=== PATIENT | female | born 1960 | race Caucasian/White ===

== ENCOUNTER 2020-09-12 08:58 | Outpatient (REF) | payer OTHER, SELFPAY ==
[2020-09-12 11:02] LABS: MANUAL DIFF FLAG NO
[2020-09-12 11:10] LABS: Basophils Percent Auto 0.7 % (0-2); Eosinophils Absolute Auto 0.2 X10*3/uL (0.0-0.4); Eosinophils Percent Auto 2.9 % (0-4); Hematocrit 45.7 % (37-47); Hemoglobin 14.4 g/dl (12.0-16.0); Imm Gran Abs Auto 0.03 X10*3/uL (0.00-0.03); Imm Gran Pct Auto 0.5 % (0.0-0.4); Lymphocytes Absolute Auto 1.1 X10*3/uL (1.2-4.9); Lymphocytes Percent Auto 17.9 % (20-40); Mean Corpuscular HGB Conc 31.5 g/dl (31.0-35.0); Mean Corpuscular Hemoglobin 29.3 pg (27.0-33.0); Mean Corpuscular Volume 93.1 fL (80-98); Mean Platelet Volume 9.9 fL (9.4-12.3); Monocytes Absolute Auto 0.5 X10*3/uL (0.1-1.2); Monocytes Percent Auto 9.1 % (2-11); Neutrophils Absolute Auto 4.1 X10*3/uL (2.0-8.3); Neutrophils Percent Auto 68.9 % (45-73); Platelet Count 387 X10*3/uL (160-400); Red Blood Count 4.91 X10*6/uL (4.20-5.50); Red Cell Distribution Width 12.9 % (11.0-16.0); White Blood Count 5.9 X10*3/uL (4.8-10.8)
[2020-09-12 11:30] LABS: Alanine Aminotransferase 13 U/L (0-31); Albumin Level 4.3 g/dL (3.5-5.0); Alkaline Phosphatase 86 U/L (39-117); Anion Gap 13 (12-20); Aspartate Amino Transferase 15 U/L (5-31); Bilirubin Total 0.5 mg/dL (0.0-1.0); Blood Urea Nitrogen 25 mg/dL (9-16); Calcium 8.7 mg/dL (8.4-10.2); Carbon Dioxide 26 mmol/L (22-29); Chloride 109 mmol/L (96-108); Estimated Glomerular Filt Rate > 60; Glucose Fasting 79 mg/dL (60-99); Potassium 4.2 mmol/l (3.3-5.1); Sodium 144 mmol/L (135-145); Total Protein 6.9 g/dL (6.5-8.0)
[2020-09-12 18:21] LABS: Vitamin B12 364 pg/mL (200-900)
[2020-09-16 14:56] LABS: Vitamin D 25-OH, D2 <4 ng/mL; Vitamin D 25-OH, D3 31 ng/mL; Vitamin D 25-OH, Total 31 ng/mL (30-100)
== END 2020-09-12 08:59 | disposition home or self-care (01) ==
LOC: HO.HMGCLDS 08:58
PROVIDERS: PCP Internal Medicine; Visit Provider Internal Medicine
DX: R53.83 Other fatigue (principal); M19.071 Primary osteoarthritis, right ankle and foot; E53.8 Deficiency of other specified B group vitamins; E55.9 Vitamin D deficiency, unspecified
CPT/HCPCS: 36415; 80053; 82306; 82607; 82746; 85025

== ENCOUNTER 2020-10-06 07:36 | Day surgery (SDC) | payer OTHER, SELFPAY ==
[2020-10-03 09:41] VITALS: BMI 23.3
--- NOTE | 2020-10-05 12:54 | P.CONAN_ITS ---
HPI - Anesthesia Eval Consult details Narrative: 60yo F for Bunionectomy Gomez,excision metatarsal heads 2nd,3rd ,4th,hammer toe [id number] right PCP cleared [facility] Past Medical History Medical History Allergic rhinitis Anxiety and depression Degenerative joint disease of foot, right Dependent edema Dysthymic disorder Fatigue Migraine headache EVA on CPAP PFO with atrial septal aneurysm Sleep disorder Vitamin B 12 deficiency Vitamin D insufficiency Family History Family History Father No problems noted. Mother No problems noted. Sister Breast cancer CVD (cardiovascular disease) Paternal Grandmother Breast cancer Paternal Grandfather No problems noted. Maternal Aunt Breast cancer History of mastectomy Brother Pacemaker Sister Afib Autonomic neuropathy POTS (postural orthostatic tachycardia syndrome) Breast cancer Son Melanoma High serum lipoprotein(a) Surgical History Surgical History History of bilateral knee replacement History of colon resection History of hysterectomy Hx of BSO (bilateral salpingo-oophorectomy) Status post reconstruction procedure Social History Social History Alcohol intake: current Alcohol intake frequency: holidays/special occasions only Smoking Status: Former smoker Advance Directives: No Advance Directives Information Provided: No Advance Directives on File: No Meds Allergies Allergy/AdvReac Type Severity Reaction Status Date / Time hydromorphone [From DILAUDID] AdvReac Unknown MAKES ME Verified 10/06/20 08:11 LOOPY seasonal allergies Allergy Unknown Unknown Uncoded 10/05/20 15:03 Home Medications Medication Instructions Recorded Confirmed Type aspirin 81 mg tablet,delayed 81 mg PO DAILY 09/12/20 10/03/20 History release furosemide 20 mg tablet 20 mg PO DAILY 09/12/20 10/03/20 History sumatriptan succinate 50 mg PO DAILY PRN 10/03/20 10/03/20 History turmeric 1,000 mg PO 10/03/20 History Exam Exam Date and Time: October 05, 2020 1254 Height,Weight and Vital Signs: Height 5 ft 6 in Weight 65.771 kg Pertinent Lab Results Pertinent Lab Results: Laboratory Tests 09/12/20 09/12/20 09:10 09:10 WBC 5.9 Hgb 14.4 Hct 45.7 Plt Count 387 Sodium 144 Potassium 4.2 Chloride 109 H BUN 25 H Creatinine 0.75 Narrative Narrative: EKG NSR, no ST-T changes ECHO 10/2018: LVEF 55-60%, interatrial septal aneurysm seen bowing to the right. Suspect interatrial shunt, from PFO. Unclear direction, could be bidirectional. No obvious valve path. Assessment and Plan Assessment Anesthesia Assessment: Chart Reviewed
--- NOTE | 2020-10-05 15:24 | HP_ITS ---
DATE OF SERVICE: 10/06/2020 PREOPERATIVE DIAGNOSIS: Right foot bunion, hammertoe deformity, second, third, and fourth toe right foot and metatarsalgia of second, third and fourth, right foot. PLANNED PROCEDURE: Gomez bunionectomy with hammertoe repair, second, third and fourth toes with excision of metatarsal head, second, third and fourth, right foot. PAST MEDICAL HISTORY: Hip, back, and knee pain. CURRENT MEDICATIONS: Calcium, Premarin, Lasix, vitamin D, aspirin, ciclopirox, Imitrex, and turmeric. PAST SURGICAL HISTORY: Hysterectomy, bilateral knee replacement, and left foot surgery. FAMILY HISTORY: Noncontributory. SOCIAL HISTORY: The patient is a nonsmoker. Relates no alcohol or drug use. 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 ALLERGIES: NO KNOWN DRUG ALLERGIES. HOSPITALIZATION: Denies any hospitalizations. REVIEW OF SYSTEMS: Within normal limits. HISTORY OF PRESENT ILLNESS: This is a 60-year-old female, who presents to my office with continued pain and swelling and pressure in her ball of her right foot for several years, has been progressively getting worse. She has tried custom orthotics and change in footwear. Her severity is moderate to severe with significant pain. PHYSICAL EXAMINATION: GENERAL APPEARANCE: Reveals a pleasant, alert, well-nourished, well-developed, well-hydrated individual, who presents with proper hygiene and body habitus, in no acute distress. NEUROLOGICAL EXAM: Reveals intact sensorium. Pain sensation is normal. Vibratory sensation is intact. Pinprick sensation is normal. Denies any anesthesias, burning, paresthesias, or tingling bilaterally. VASCULAR EXAM: DP and PT pulses are 2/4 bilaterally. Capillary refill time is immediate to all digits. Skin temperature is warm to cool proximal to distal. Hair growth, texture, elasticity, and turgor is normal bilaterally. Pigmentation is normal bilaterally and there is no edema. DERMATOLOGICAL EXAM: Reveals painful callus noted in the second and third metatarsal head of the right foot. ORTHOPEDIC EXAM: Muscle strength is 5/5 in a symmetrical fashion. There is a dorsally, medially prominent first metatarsophalangeal joint bunion of the right foot. Erythema and exostosis with pain on palpation. Digital deformities revealed digital contracture, 2 through 5 with medial deviation of 2, 3 and 4 of the right with overlapping of the second onto the first toe MPJ metatarsophalangeal joint with pain, swelling, and inflammation of plantar metatarsophalangeal joints, second, third and fourth of the right foot and pain with range of motion. PLAN: Surgery was discussed in detail with the patient including risks of surgery and not having surgery, potential surgical complications, and the usual postoperative course. The above-mentioned surgery was discussed in detail with the patient including risks, benefits, and possible complications. No guarantees were given and written and oral informed consents were obtained. The surgery was discussed in detail. The patient discussed potential complications such as but not limited to, delayed or nonhealing, excessive scarring, excessive swelling, failure of the procedure, floppy toe infection, nonunion, numbness, chronic pain, recurrence, shortened toe, joint stiffness, failure of the procedure and loss of toe, foot, life, or limb. Alternatives of procedure were also discussed including conservative care. The patient would like to proceed with treatment and surgical intervention. The patient will obtain preoperative labs as well as medical clearance for surgery and anesthesia. The patient is made aware to stop any and all blood thinners including [id number] aspirin at least 1 week prior to surgery. She is made aware that driving may not be allowed during a portion of the postoperative period and not to utilize any smoking tobacco products. A postoperative prescription for oxycodone 5 mg was dispensed to the patient. The patient can also stagger taking extra-strength Tylenol and Motrin as needed for pain relief. The patient will be partial weightbearing in a postoperative shoe and then a walking cast boot with crutches. All questions were answered to satisfaction of the patient. WILLIAM Carrillo / [id number]
[2020-10-06 08:08] VITALS: BP 115/62; PULSE 69; RESP 16; TEMP 36.8; O2SAT 100
[2020-10-06] MEDS: Lactated Ringers 1,000 ML 100 ML IVCONT (08:08)
[2020-10-06] MEDS: ceFAZolin Sodium/Dextrose,Iso 2 GM/50 ML PIGGYBACK IV (08:08)
--- NOTE | 2020-10-06 08:36 | MHC.SHP ---
Pre-Procedural Eval Section A The patient is an INPATIENT: No Changes since office visit: No Cold of Flu in the past 2 weeks, No New Medical Problems, No Changes in Medication and No Patient answered all questions The History & Physical has been completed within 30 days and I have reviewed it.: Yes Section B Chief Complaint: CIPRIANO PICHARDO 2ND 3RD AND 4TH RIGHT Allergies: Allergies Allergy/AdvReac Type Severity Reaction Status Date / Time hydromorphone [From DILAUDID] AdvReac Unknown MAKES ME Verified 10/06/20 08:11 LOOPY seasonal allergies Allergy Unknown Unknown Uncoded 10/05/20 15:03 Plan Patient has been examined and remains a candidate for the planned procedure
--- NOTE | 2020-10-06 09:19 | P.CONAN_ITS ---
[facility] Past Medical History Medical History Allergic rhinitis Anxiety and depression Degenerative joint disease of foot, right Dependent edema Dysthymic disorder Fatigue Migraine headache EVA on CPAP PFO with atrial septal aneurysm Sleep disorder Vitamin B 12 deficiency Vitamin D insufficiency Family History Family History Father No problems noted. Mother No problems noted. Sister Breast cancer CVD (cardiovascular disease) Paternal Grandmother Breast cancer Paternal Grandfather No problems noted. Maternal Aunt Breast cancer History of mastectomy Brother Pacemaker Sister Afib Autonomic neuropathy POTS (postural orthostatic tachycardia syndrome) Breast cancer Son Melanoma High serum lipoprotein(a) Surgical History Surgical History History of bilateral knee replacement History of colon resection History of hysterectomy Hx of BSO (bilateral salpingo-oophorectomy) Status post reconstruction procedure Social History Social History Alcohol intake: current Alcohol intake frequency: holidays/special occasions only Smoking Status: Former smoker Advance Directives: No Advance Directives Information Provided: No Advance Directives on File: No Meds Allergies Allergy/AdvReac Type Severity Reaction Status Date / Time hydromorphone [From DILAUDID] AdvReac Unknown MAKES ME Verified 10/06/20 08:11 LOOPY seasonal allergies Allergy Unknown Unknown Uncoded 10/05/20 15:03 Home Medications Medication Instructions Recorded Confirmed Type aspirin 81 mg tablet,delayed 81 mg PO DAILY 09/12/20 10/03/20 History release furosemide 20 mg tablet 20 mg PO DAILY 09/12/20 10/03/20 History sumatriptan succinate 50 mg PO DAILY PRN 10/03/20 10/03/20 History turmeric 1,000 mg PO 10/03/20 History Exam Exam Date and Time: October 06, 2020918 Height,Weight and Vital Signs: Height 5 ft 6 in Weight 65.771 kg Last Vital Signs Temp 98.3 F 10/06/20 08:08 Pulse 69 10/06/20 08:08 Resp 16 10/06/20 08:08 BP 115/62 10/06/20 08:08 Pulse Ox 100 10/06/20 08:08 Assessment and Plan Assessment Anesthesia Assessment: Anesthesia Plan Discussed and Chart Reviewed Final Anesthetic Review NPO: Yes ASA Class: III Final Preanesthetic Review: No Changes in Pt Med Stat, Meds/Allgs Chart Reviewed, Consent Obtained/Reviewed and Anes Risks/Benef Reviewed Patient Risk: Low Procedure Risk: Low Anesthetic Plan Anesthetic Plan: MAC: Disposition: Standard PACU
[2020-10-06 10:32] VITALS: BP 119/78; PULSE 78; RESP 16; TEMP 36.7; O2SAT 96
[2020-10-06 10:42] VITALS: BP 107/68; PULSE 72; RESP 16; O2SAT 100
[2020-10-06 10:47] VITALS: BP 117/64; PULSE 67; RESP 16; O2SAT 100
[2020-10-06 10:52] VITALS: BP 115/66; PULSE 73; RESP 16; O2SAT 98
[2020-10-06 11:08] VITALS: BP 118/59; PULSE 72; RESP 16; TEMP 36.6; O2SAT 99
--- NOTE | 2020-10-06 11:19 | P.BOP_ITS ---
Brief Operative Note Date of procedure: 10/06/20 Pre-op diagnosis: Right Bunion, hammer toe 2,3,4, metatarsalgia 2,3,4 , Post-op diagnosis: same Procedure: Right foot Gomez Bunionectomy, hammertoe repair 2, 3, 4 and metatarsal head excision 2, 3, 4 Implants: K-Wires x 3, Amniofix, amniofill Surgeon: Heather Paredes Anesthesia: MAC and local Planer Setter: Victoriano Bryan Estimated blood loss (mL): 5 Tourniquet time (min): 63 Pathology: other (bone right foot) Condition: stable Disposition: PACU
--- NOTE | 2020-10-06 11:45 | HO.POSTANES ---
Post Anesthesia Evaluation Post Anesthesia Evaluation Vital Signs: Vital Signs Temp Pulse Resp BP Pulse Ox 10/06/20 11:08 97.9 F 72 16 118/59 L 99 10/06/20 10:52 73 16 115/66 98 10/06/20 10:47 67 16 117/64 100 10/06/20 10:42 72 16 107/68 100 10/06/20 10:32 98.1 F 78 16 119/78 96 10/06/20 08:08 98.3 F 69 16 115/62 100 Anesthesia: Monitored (tiva) Mental Status: Awake Pain Control: Satisfactory Nausea/Vomiting: None Hydration: Adequate Anesthesia-Related Issues: No Anes. Related Issues
--- NOTE | 2020-10-17 15:13 | OP_ITS ---
SURGEON: Heather Paredes DPM PREOPERATIVE DIAGNOSES: 1. Hallux abductovalgus deformity, right foot. 2. Hammertoe deformity, right 2nd, 3rd, and 4th toe. 3. Metatarsalgia, right 2nd, 3rd, and 4th metatarsal and contracture of 2nd and 3rd metatarsal phalangeal joints. POSTOPERATIVE DIAGNOSES: 1. Hallux abductovalgus deformity, right foot. 2. Hammertoe deformity, right 2nd, 3rd, and 4th toe. 3. Metatarsalgia, right 2nd, 3rd, and 4th metatarsal and contracture of 2nd and 3rd metatarsal phalangeal joints. PROCEDURES PERFORMED: 1. Modified Gomez bunionectomy, right foot. 2. Hammertoe repair with K-wire fixation, right 2nd, 3rd, and 4th toe. 3. Metatarsal head excision, right 2nd, 3rd, and 4th metatarsal heads. 4. Tenotomy and capsulotomy, right 2nd and 3rd metatarsal phalangeal joints. ESTIMATED BLOOD LOSS: Less than 5 cc. COMPLICATIONS: None. ANESTHESIA: Monitored anesthetic care with local consisting of 1:1 mixture of 2% lidocaine plain and 0.5% Marcaine plain. ASSISTANCE SURGEON: Victoriano Bryan DPM. HEMOSTASIS: Pneumatic ankle tourniquet at 215 mmHg for 63 minutes. INDICATIONS FOR SURGERY: The patient had painful bunion and hammertoes and contracture of the right foot that has been painful for some time. The patient has failed conservative therapy and would like to proceed with surgical intervention. PROCEDURE IN DETAIL: The patient was brought into the operating room, placed on the operating table in the usual supine position. Following IV sedation, 24 cc of the above-mentioned local anesthetic was injected into the right foot in a regional field block fashion. The foot was then scrubbed, prepped, and draped in a sterile manner. A 2 g of cefazolin was administered prior to the start of anesthesia. The right foot was exsanguinated and capillary and pneumatic ankle tourniquet was inflated. Modified Gomez bunionectomy. Attention was directed to the 1st metatarsophalangeal joint where an approximately 6 cm curvilinear incision was made. Incision was deepened down through subcutaneous tissue. Great care being taken to protect and retract all vital, neural, and vascular structures, and bleeders were cauterized as necessary. A medial capsulotomy was made medial and parallel to the extensor tendons, and the soft tissues were freed from the head of the 1st metatarsal. Using power instrumentation, the medial eminence of the first metatarsal head was resected and passed from the operative site. A lateral release was then performed via the same incision. Attention was directed to the 1st interspace deep transverse intermetatarsal ligament, we transected the fibular sesamoidal ligament and the head of the adductor tendon allowing the head of the 1st metatarsal to drift into a more corrected position. The wound was irrigated with new copious amounts of normal sterile saline, and the soft tissue was reapproximated utilizing 3-0 Vicryl, and the skin was reapproximated using 4-0 Monocryl in a continuous running fashion with nylon 4-0 sutures in an interrupted suture technique. Hammertoe deformities right 2nd, 3rd, and 4th toes. Attention was directed first to 2nd toe where an incision was made overlying the PIP joint approximately 3 cm in length. The incision was deepened down through subcutaneous tissue with great care being taken to retract vital, neural, and vascular structures, and all bleeders were cauterized as necessary. The extensor tendon was transected at the level of the PIP joint and then the sesamoidal ligaments were transected allowing the head of the proximal phalanx to drift into the operative site. Using power instrumentation, the head of the proximal phalanx was resected and passed from the operative site. Third toe, the above-mentioned procedure was completed in identical fashion to the 3rd toe. The above-mentioned surgical procedure was completed in identical fashion on the 4th toe. Metatarsal head excision. Attention was directed to the 2nd interspace where a curvilinear incision was made approximately 10 cm in length. The incision was deepened down to subcutaneous tissue with great care being taken to retract all vital, neural, and vascular structures, and all bleeders were cauterized as necessary. The attention was directed first to the 2nd metatarsal head. At the level of the 2nd metatarsal phalangeal joint, a transverse tenotomy capsulotomy was made using the McGlamry elevator. The head of the 2nd metatarsal was freed of its soft tissue surroundings and was elevated into the surgical site. Utilizing power instrumentation, the head of the 2nd metatarsal was resected and passed from the operative site. Attention was directed via the same incision into the 3rd metatarsal head, where again a transverse tenotomy capsulotomy was made and the head of the 3rd metatarsal was freed from its soft tissue surroundings using a McGlamry elevator, and the 3rd metatarsal head was resected with power instrumentation and passed from the operative site. The excision of the 3rd metatarsal head was done in a parabolic fashion to maintain the parabola of the metatarsals. An incision was then made overlying the 4th metatarsal head. The subcutaneous tissues were freed. Great care was taken to retract vital, neural, and vascular structures, and all bleeders were cauterized as necessary. The soft tissues were transected down to the level of the 4th metatarsal head and using of McGlamry elevator, the soft tissues were freed about the 4th metatarsal head and using power instrumentation, the 4th metatarsal head was transected and passed from the operative site. Again, the metatarsal problem was maintained at each transection. Then the hammertoe and metatarsal head incisions were irrigated with normal sterile saline. A 0.045 K-wire was then used, first on the 4th toe. The K-wire was retrograded into the distal part of the 4th toe, and then placed through the proximal phalanx and through the metatarsal shaft of the 4th metatarsal. This procedure was done in identical fashion for the 2nd and 3rd hammertoe metatarsals. Amnio fill was then placed, reconstituting with normal saline into the 2nd, 3rd, and 4th metatarsal phalangeal joint spaces. The extensor tendon of the hammer toes 2, 3 and 4 was reapproximated with 3-0 Vicryl in an interrupted suture technique. The soft tissue and subcutaneous tissue were reapproximated at the 2nd and 3rd and 4th metatarsophalangeal joints and the skin. The subcutaneous tissues reapproximated with 4-0 Vicryl, and the skin was reapproximated with 4-0 nylon in a continuous running fashion on all remaining incisions. A postoperative injection of 0.5% Marcaine plain and 1 mL of dexamethasone was administered to the right foot. The right foot was then bandaged with Xeroform, 4x4s, Betadine-soaked gauze, Peace, Cast Padding, and an Ron bandage. The pneumatic ankle tourniquet was deflated and prompt capillary refill was noted to all 5 digits. All guidewires were trimmed and cut, and pin caps were placed. The patient tolerated procedure and anesthesia well. The patient was transferred to the recovery room with vital signs stable, and neurovascular status at preoperative levels. Following a period of postoperative recovery, the patient will be discharged home with written and oral postoperative instructions. The patient will follow up in my office for all postoperative followup care and if any problems arise. Heather Paredes DPM LP/ESTEFANI / [id number] MTDJonathon
== END 2020-10-06 23:59 | disposition home or self-care (01) ==
PROVIDERS: PCP Internal Medicine; Visit Provider Podiatrist
PROC: (CPT 28292; principal; 2020-10-06 09:00)
DX: M20.11 Hallux valgus (acquired), right foot (principal); M21.611 Bunion of right foot; M20.41 Other hammer toe(s) (acquired), right foot; M77.41 Metatarsalgia, right foot; M24.574 Contracture, right foot
CPT/HCPCS: 28292; 28285 ×3; 28112 ×3; 28234 ×2; 88304; 88311; J0690; J1100; J2250; J3010; Q4100

== ENCOUNTER 2020-11-22 07:53 | Outpatient (REF) | payer OTHER, SELFPAY ==
[2020-11-22 10:17] LABS: Hematocrit 45.6 % (37-47); Hemoglobin 14.7 g/dl (12.0-16.0); Mean Corpuscular HGB Conc 32.2 g/dl (31.0-35.0); Mean Corpuscular Hemoglobin 29.5 pg (27.0-33.0); Mean Corpuscular Volume 91.4 fL (80-98); Mean Platelet Volume 9.9 fL (9.4-12.3); Platelet Count 402 X10*3/uL (160-400); Red Blood Count 4.99 X10*6/uL (4.20-5.50); Red Cell Distribution Width 13.5 % (11.0-16.0); White Blood Count 9.1 X10*3/uL (4.8-10.8)
[2020-11-22 10:34] LABS: Glucose Urine UA NEG (NEG); Leukocyte Esterase Urine NEG (NEG); Nitrite Urine NEG (NEG); Specific Gravity - Urine 1.025 (1.005-1.025); Urine Blood NEG (NEG); Urine Ketones NEG (NEG); Urine Protein NEG (NEG-TRACE)
[2020-11-22 10:35] LABS: Alanine Aminotransferase 11 U/L (0-31); Albumin Level 4.5 g/dL (3.5-5.0); Alkaline Phosphatase 83 U/L (39-117); Anion Gap 15 (12-20); Aspartate Amino Transferase 14 U/L (5-31); Bilirubin Total 0.5 mg/dL (0.0-1.0); Blood Urea Nitrogen 24 mg/dL (9-16); Calcium 9.4 mg/dL (8.4-10.2); Carbon Dioxide 27 mmol/L (22-29); Chloride 102 mmol/L (96-108); Cholesterol 212 mg/dL; Estimated Glomerular Filt Rate > 60; Glucose Fasting 106 mg/dL (60-99); HDL Cholesterol 82 mg/dL; LDL Cholesterol Calculated 116 mg/dl; Potassium 3.8 mmol/l (3.3-5.1); Sodium 140 mmol/L (135-145); Total Protein 7.2 g/dL (6.5-8.0); Triglycerides 73 mg/dL
[2020-11-22 10:42] LABS: Appearance Urine CLEAR; Color Urine YELLOW
[2020-11-22 10:55] LABS: Thyroid Stimulating Hormone 0.67 uIU/mL (0.32-4.0)
[2020-11-22 11:32] LABS: Mucus Urine 1+ /LPF; RBC Urine 0-2 /HPF (0); Squamous Epithelial Cell Urine TRACE /LPF; WBC Urine 0-2 /HPF (0-4)
[2020-11-22 12:06] LABS: Calcium Oxalate Crystals Urine 2+ /LPF
== END 2020-11-22 07:54 | disposition home or self-care (01) ==
LOC: HO.LAB 07:53
PROVIDERS: PCP Internal Medicine; Visit Provider Internal Medicine
DX: Z00.00 Encounter for general adult medical examination without abnormal findings (principal); Z13.220 Encounter for screening for lipoid disorders; Z13.29 Encounter for screening for other suspected endocrine disorder
CPT/HCPCS: 36415; 80053; 80061; 81001; 84443; 85027

== ENCOUNTER → 2020-12-12 12:29 | Outpatient (BNVA) | payer OTHER, SELFPAY | PROVIDERS: PCP Internal Medicine; Visit Provider Internal Medicine Cardiovascular Disease | DX: Z76.89 Persons encountering health services in other specified circumstances (principal) ==

== ENCOUNTER 2021-01-11 15:40 | Outpatient (REF) | payer OTHER, SELFPAY ==
--- NOTE | ~2021-01-11 | MM_ITS ---
EXAMINATION: MM SCREENING DIGITAL BREAST TOMOSYNTHESIS, BILATERAL CLINICAL INFORMATION: Screening. Asymptomatic. The lifetime risk of breast cancer based on the Tyrer-Cuzick Model is 14%. COMPARISON: Mammography: February 13, 2019 and studies dating back to August 22, 2012 TECHNIQUE: Digital breast tomosynthesis is performed in both the craniocaudal and mediolateral oblique views along with computer-aided detection (CAD). Synthesized 2D images are generated from the tomosynthesis. Left exaggerated craniocaudal view also performed. FINDINGS: The breasts are heterogeneously dense, which may obscure small masses (ACR BI-RADS breast composition Category c). There are no significant masses, abnormal calcifications, or other abnormalities. MM/MM tomosynthesis screening BI IMPRESSION: There are no significant changes from prior study. ASSESSMENT: BI-RADS 1: Negative RECOMMENDATION: Routine annual mammography screening. This patient's information was entered into a reminder system with a target due date for their next mammogram.
== END 2021-01-11 15:41 | disposition home or self-care (01) ==
LOC: HO.MAMMO 15:40
PROVIDERS: PCP Internal Medicine; Visit Provider Internal Medicine
DX: Z12.31 Encounter for screening mammogram for malignant neoplasm of breast (principal)
CPT/HCPCS: 77063; 77067

== ENCOUNTER 2021-02-13 15:00 | Outpatient (RCR) | payer OTHER, SELFPAY ==
--- NOTE | 2020-11-22 09:25 | MHC.PT.EP ---
[facility] [place] Office [place] Office [place] Office [address] Rustam Garza [address] [phone] F: [phone] F: [phone] F: [phone] F: [phone] Physical Therapy Plan of Care Date of Evaluation: 11/22/20 Date of Surgery: 10/06/20 Diagnosis: Metatarsalgia, R foot Assessment: 60 year old female referred for metatarsalgia of R foot . Pt states that she had surgery to correct the alignment of the 2nd, 3rd and 4th toe (per pt her toes were overlapping). Pt is 6.5 weeks post op and is currently allowed weight bearing as tolerated with and without boot (pt is using the boot as she is unable to wear her shoes due to swelling). Examination reveals 0/10 pain at rest and 5/10 pain with weight bearing, decreased R ankle and toe ROM, decreased muscle strength, altered posture, balance and gait. She lives with her but is independent with all ADLs. 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 Anticipated date of return is first week of Jan. She is a good candidate for PT based on age, goals, physical impairments and functional limitations. She would benefit from therapy to decrease pain, swelling, improve ROM, increase muscle strength, postural correction, balance training, gait training and functional training. Frequency and Duration: The patient will be seen 2/week for 8 weeks Short Term Goals: 1. Pt will have 50% decrease in pain 2 weeks. 2. Pt will have all ankle ROM and toe ROM WFL in 3 weeks. 3. Pt will be able to walk with full weight bearing with her shoes in 4 weeks. Mcc Goals: 1. Pt will be able to bike without pain in 5 weeks. 2. Pt will have an increase in muscle strength by 1 grade in 6 weeks. 3. Pt will return to PLOF- hiking without pain in 8 weeks Treatment Plan: Modalities to reduce pain, spasms and effusion. Manual therapy to restore motion and function. Therapeutic exercise to improve strength and flexibility. Neuromuscular re-education for posture and balance. Therapeutic activities to return to functional activities of daily living. Electronically signed by: Lindsay Diaz DPT Please sign and return to therapist. Thank you for your referral.
--- NOTE | 2021-02-27 15:42 | MHC.PT.DC ---
[facility] [place] Office [place] Office [place] Office [address] Rustam Garza [address] [phone] F: [phone] F: [phone] F: [phone] F: [phone] Physical Therapy Discharge Report Diagnosis: Metatarsalgia, R foot Date of Surgery: 10/06/20 Date of Evaluation: 11/22/20 Date of Discharge: 02/27/21 Treatments to Date: 20 Cancellations to Date: 0 No Shows to Date: 0 Discharge Status: Improved Function Discharge Summary: Pt has improved significantly functionally. She is independent with all ADLS. She however continues to have pain in the bottom of her foot. She has followed up with her surgeon who has recommended follow up with diesel retrofit installer for pain management. Pt has therefore been d/c from therapy. Electronically signed by: Lindsay Diaz DPT Please sign and return to therapist. Thank you for your referral.
== END 2021-02-27 15:44 | disposition other institution (70) ==
LOC: HO.PT 15:00
PROVIDERS: Visit Provider Podiatrist
DX: M77.41 Metatarsalgia, right foot (principal)
CPT/HCPCS: 97035; 97110; 97112; 97140; 97161; 97530

== ENCOUNTER → 2021-04-03 10:48 | Outpatient (BNVA) | payer OTHER, SELFPAY | PROVIDERS: PCP Internal Medicine; Visit Provider Internal Medicine ==

== ENCOUNTER 2021-04-21 14:54 | Outpatient (REF) | payer OTHER, SELFPAY ==
--- NOTE | ~2021-04-21 | MR_ITS ---
EXAMINATION: MR LOWER EXTREMITY NON JOINT WITHOUT CONTRAST, RIGHT CLINICAL INFORMATION: Right foot pain, difficulty walking. Right foot neuroma interspace. Patient reports pain in ball of foot and toe, swelling, and previous surgery on October 06. COMPARISON: XR right foot 09/19/2015. TECHNIQUE: MRI of the right foot was performed using routine sequences on a high-field scanner. FINDINGS: MUSCLES/TENDONS: The flexor tendons to the 2nd toe are not well seen distally which could represent tendinosis or tearing. The flexor tendons to the 3rd and 4th toes appear to be subluxed medially and are also somewhat difficult to see in the toes. LIGAMENTS: The Lisfranc ligament is intact. The plantar plates at the 1st, 4th, and 5th MTP joints appear to be grossly intact, although thickened at the 4th MTP joint. The plantar plates are likely torn at the 2nd and 3rd MTP joints. ARTICULAR CARTILAGE/BONE: There is mild osteoarthritis of the talonavicular, navicular-cuneiform, and 2nd through 5th TMT joints. There is bydjihif-dc-mxxcvv osteoarthritis of the 1st TMT joint. There is mild medial subluxation of the 1st metatarsal. There is a moderate hallux valgus deformity and wgkjvzmc-hg-zfwurf osteoarthritis of the 1st MTP joint. This includes prominent bone marrow edema extending from the distal 1st metatarsal diaphysis to the head. There is some deformity and areas of flattening of the head. There is mild lateral subluxation of the 1st proximal phalanx. There is erosion of the heads of the 2nd and 3rd metatarsals. There is marked dorsal subluxation of the 2nd proximal phalanx. There is moderate dorsal subluxation of the 3rd proximal phalanx. There is diffuse bone marrow edema in the 2nd metatarsal extending from the proximal diaphysis to the eroded head. There is mild bone marrow edema in the 2nd proximal phalanx. There our scattered areas of probable magnetic susceptibility artifact around and dorsal to the 3rd MTP joint which may be postoperative. There is mild bone marrow edema in the bia-va-cmttrp 3rd metatarsal. There is minor bone marrow edema in the 3rd proximal phalanx. There is probable magnetic stability artifact around the 4th MTP joint. The head of the 4th metatarsal appears to be flattened. There is mild patchy bone marrow edema in the 4th metatarsal extending from the proximal diaphysis to the flattened head. There is probable magnetic susceptibility artifact at the 4th PIP joint. There may have been prior resection of the head of the 4th proximal phalanx. JOINT FLUID/BURSA/SOFT TISSUES: Within normal limits. MR/MR foot RT wo con IMPRESSION: 1. Bswwnqgo-os-jewqip osteoarthritis of the 1st TMT joint. Yinw-em-dijtleba osteoarthritis of multiple additional midfoot joints. 2. Hallux valgus deformity with rtasfccm-ho-ywiizd osteoarthritis of the 1st MTP joint. 3. Erosions of the heads of the 2nd and 3rd metatarsals, flattening of the head of the 4th metatarsal. Associated bone marrow edema in the 2nd, 3rd, and 4th metatarsals which may be degenerative, reactive, or stress related. Inflammatory bone marrow edema cannot be excluded. There are focal areas of mild bone marrow edema in the 2nd through 4th proximal phalanges as well. There is probable magnetic susceptibility artifact at the 3rd MTP, 4th MTP, and 4th PIP joints, which may be postoperative. Correlate with surgical history. Dorsal subluxations at the 2nd and 3rd MTP joints. Plantar plate tear is at the 2nd and 3rd MTP joints. 4. Tendinosis and/or tearing of the flexor tendons to the 2nd toe. Medial subluxation of the flexor tendons to the 3rd and 4th toes which become difficult to visualize in the toes.
== END 2021-04-21 14:55 | disposition home or self-care (01) ==
LOC: HO.MRI 14:54
PROVIDERS: Visit Provider Podiatrist
DX: G57.81 Other specified mononeuropathies of right lower limb (principal); M79.671 Pain in right foot; R26.2 Difficulty in walking, not elsewhere classified
CPT/HCPCS: 73718

== ENCOUNTER 2021-05-09 06:06 | Outpatient (REF) | payer OTHER, SELFPAY ==
[2021-05-09 15:53] LABS: Glucose Urine UA NEG (NEG); Leukocyte Esterase Urine 1+ (NEG); Nitrite Urine NEG (NEG); Urine Blood TRACE (NEG); Urine Ketones NEG (NEG); Urine Protein NEG (NEG-TRACE)
[2021-05-09 15:54] LABS: Appearance Urine CLEAR; Color Urine YELLOW
[2021-05-09 16:03] LABS: Amorphous Sediment Urine 2+ /LPF; Bacteria Urine TRACE /LPF; Squamous Epithelial Cell Urine TRACE /LPF
== END 2021-05-09 06:07 | disposition home or self-care (01) ==
LOC: HO.LAB 06:06
PROVIDERS: PCP Internal Medicine; Visit Provider Family Medicine
DX: R31.9 Hematuria, unspecified (principal)
CPT/HCPCS: 81001; 87086; 87088; 87186

== ENCOUNTER 2021-05-22 12:15 | Outpatient (REF) | payer OTHER, SELFPAY ==
[2021-05-22 14:43] LABS: Glucose Urine UA NEG (NEG); Leukocyte Esterase Urine TRACE (NEG); Nitrite Urine NEG (NEG); Specific Gravity - Urine <= 1.005 (1.005-1.025); UACC Culture Trigger YES; Urine Blood NEG (NEG); Urine Ketones NEG (NEG); Urine Protein NEG (NEG-TRACE)
[2021-05-22 14:45] LABS: Appearance Urine HAZY; Color Urine YELLOW
[2021-05-22 14:56] LABS: RBC Urine 0 /HPF (0); Squamous Epithelial Cell Urine TRACE /LPF
== END 2021-05-22 12:16 | disposition home or self-care (01) ==
LOC: HO.LAB 12:15
PROVIDERS: PCP Internal Medicine; Visit Provider Internal Medicine
DX: R31.9 Hematuria, unspecified (principal)
CPT/HCPCS: 81001; 81003; 87086

== ENCOUNTER 2021-07-06 08:19 | Outpatient (REF) | payer OTHER, SELFPAY ==
[2021-07-06 11:25] LABS: Glucose Urine UA NEG (NEG); Leukocyte Esterase Urine NEG (NEG); Nitrite Urine NEG (NEG); PH 6.5 (5.0-8.0); Urine Blood NEG (NEG); Urine Ketones NEG (NEG); Urine Protein NEG (NEG-TRACE)
[2021-07-06 11:26] LABS: Hematocrit 42.7 % (37-47); Hemoglobin 13.3 g/dl (12.0-16.0); Mean Corpuscular HGB Conc 31.1 g/dl (31.0-35.0); Mean Corpuscular Hemoglobin 28.7 pg (27.0-33.0); Mean Platelet Volume 10.3 fL (9.4-12.3); Platelet Count 418 X10*3/uL (160-400); Red Blood Count 4.64 X10*6/uL (4.20-5.50); Red Cell Distribution Width 13.7 % (11.0-16.0); White Blood Count 5.1 X10*3/uL (4.8-10.8)
[2021-07-06 11:28] LABS: Appearance Urine CLEAR; Color Urine YELLOW
[2021-07-06 11:49] LABS: Alanine Aminotransferase 21 U/L (0-31); Albumin Level 4.2 g/dL (3.5-5.0); Alkaline Phosphatase 94 U/L (39-117); Anion Gap 13 (12-20); Aspartate Amino Transferase 20 U/L (5-31); Bilirubin Total 0.5 mg/dL (0.0-1.0); Blood Urea Nitrogen 17 mg/dL (9-16); Calcium 9.4 mg/dL (8.4-10.2); Carbon Dioxide 27 mmol/L (22-29); Chloride 105 mmol/L (96-108); Estimated Glomerular Filt Rate > 60; Glucose Fasting 89 mg/dL (60-99); Sodium 141 mmol/L (135-145); Total Protein 6.9 g/dL (6.5-8.0)
== END 2021-07-06 08:20 | disposition home or self-care (01) ==
LOC: HO.HMGCLDS 08:19
PROVIDERS: Family Medicine; PCP Internal Medicine; Visit Provider Internal Medicine
DX: E53.8 Deficiency of other specified B group vitamins (principal); R31.9 Hematuria, unspecified
CPT/HCPCS: 36415; 80053; 81003; 82306; 85027

== ENCOUNTER 2021-09-27 08:01 | Outpatient (REF) | payer OTHER, SELFPAY ==
--- NOTE | ~2021-09-27 | MM_ITS ---
EXAMINATION: BONE DENSITOMETRY CLINICAL INDICATION: Deficiency of other specified B group vitamins. COMPARISON: Previous BD dated 05/09/2017 and baseline BD dated 04/07/2010. TECHNIQUE: Using a [employer] DXA System (software version: 13.1) manufactured by [employer], dual-energy x-ray absorptiometry was performed of the lumbar spine and left hip. The images are of good technical quality. Summary results are attached. FINDINGS: AP SPINE L1-L4: Current: BMD 1.076 g/cm2, Z-score 0.5, T-score -0.9, normal, 2.1% decrease from previous, 10.0% decrease from baseline (<5% change is not significant). Prior: BMD 1.099 g/cm2. Baseline: BMD 1.196 g/cm2. LEFT FEMUR, NECK: Current: BMD 0.857 g/cm2, Z-score 0.0, T-score -1.3, osteopenia. Prior: BMD 0.894 g/cm2. Baseline: BMD 1.048 g/cm2. LEFT FEMUR, TOTAL: Current: BMD 0.968 g/cm2, Z-score 0.7, T-score -0.3, normal, 4.0% decrease from previous, 14.1% decrease from baseline (<5% change is not significant). Prior: BMD 1.008 g/cm2. Baseline: BMD 1.127 g/cm2. IDENTIFIED RISK FACTORS: Osteoporosis, menopause, hysterectomy. HISTORY OF FRACTURE: None listed. MEDICATIONS: Calcium, multivitamin. MM/XR DEXA axial skeleton IMPRESSION: 1. DIAGNOSIS: Osteopenia based on the lowest T-score value of -1.3 in the femoral neck applying World Health Organization criteria. 2. 10-YEAR FRACTURE RISK PREDICTION, FRAX: Major osteoporotic fracture (clinical spine, forearm, hip or shoulder) 7.7%. Hip fracture 0.6%. 3. Treatment Recommendations: NOF guidelines recommend consideration for treatment in postmenopausal women and men age 50 and older presenting with the following: -A hip or vertebral (clinical or morphometric) fracture. -T-score less than or equal to -2.5 at the femoral neck or spine after appropriate evaluation to exclude secondary causes. -Low bone mass at the hip or spine and a 10-year fracture probability by FRAX of greater than or equal to 3% for hip fracture or greater than or equal to 20% for major osteoporotic fracture based on the [place] adapted WHO algorithm. 4. Other Recommendations: All treatment decisions require clinical judgment and consideration of individual patient factors, including patient preferences, comorbidities, previous drug use, risk factors not captured in the FRAX model (e.g. frailty, falls, vitamin D deficiency, increased bone turnover, interval significant decline in bone density) and possible under or overestimation of fracture risk by FRAX. Additional medical evaluation for secondary cause of low bone mineral density may be appropriate. FUTURE SCAN RECOMMENDATION: People with diagnosed cases of osteoporosis or at high risk for fracture should have regular bone mineral density tests. For patients eligible for Medicare, routine testing is allowed once every 2 years. The testing frequency can be increased to one year for patients who have rapidly progressing disease, those who are receiving or discontinuing medical therapy to restore bone mass, or have additional risk factors.
--- NOTE | ~2021-09-27 | US_ITS ---
EXAMINATION: US RETROPERITONEAL LIMITED (RENAL ONLY) CLINICAL INFORMATION: Hematuria, unspecified. COMPARISON: CT abdomen and pelvis 04/16/2017. TECHNIQUE: Real-time imaging of the kidneys. FINDINGS: RIGHT KIDNEY: 11.1 x 3.7 x 4.8 cm (SAG x AP x TRV). The kidney is normal in size, contour, and echogenicity. Renal cortical thickness is normal. No calculi or focal parenchymal lesions. No hydronephrosis. LEFT KIDNEY: 11.3 x 4.7 x 4.5 cm (SAG x AP x TRV). There is suboptimal visualization of the left kidney due to shadowing from the ribs. Lower pole is particularly difficult to assess. The visualized kidney shows no hydronephrosis or calculus. The visualized renal parenchymal thickness and echogenicity appears normal. US/US renal BI IMPRESSION: Right: Normal. Left: Visualized kidney unremarkable. Assessment limited by shadowing from ribs.
== END 2021-09-27 08:02 | disposition home or self-care (01) ==
LOC: HO.MAMMO 08:01
PROVIDERS: Visit Provider Internal Medicine
DX: Z13.820 Encounter for screening for osteoporosis (principal); E53.8 Deficiency of other specified B group vitamins; R31.9 Hematuria, unspecified; Z78.0 Asymptomatic menopausal state
CPT/HCPCS: 76775; 77080

== ENCOUNTER 2021-10-10 07:58 | Outpatient (REF) | payer OTHER, SELFPAY ==
[2021-10-11 09:03] LABS: Syphilis Screen Nonreactive (Nonreactive)
== END 2021-10-10 07:59 | disposition home or self-care (01) ==
LOC: HO.LAB 07:58
PROVIDERS: PCP Internal Medicine; Visit Provider Obstetrics & Gynecology
DX: N90.89 Other specified noninflammatory disorders of vulva and perineum (principal)
CPT/HCPCS: 36415; 56605; 86780; 87255; 88305; 88312

== ENCOUNTER 2021-10-30 08:04 | Outpatient (REF) | payer OTHER, SELFPAY | END 2021-10-30 08:05 | disposition home or self-care (01) | LOC: HO.LAB 08:04 | PROVIDERS: PCP Internal Medicine; Visit Provider Obstetrics & Gynecology | DX: N39.0 Urinary tract infection, site not specified (principal); N76.2 Acute vulvitis | CPT/HCPCS: 87086 ==

== ENCOUNTER 2021-11-11 13:48 | Emergency (ER) | payer OTHER, SELFPAY ==
--- NOTE | ~2021-11-11 | CT_ITS ---
EXAMINATION: CT ABDOMEN AND PELVIS WITH CONTRAST CLINICAL INFORMATION: Nausea and vomiting. Rectal bleed. COMPARISON: Renal ultrasound dated 09/27/[address] abdomen/pelvis dated 04/16/2017. TECHNIQUE: Multidetector volumetric images were obtained from the superior aspect of the liver through the pubic symphysis following administration 85 mL of Omnipaque 350 intravenous contrast. Sagittal and coronal reformatted images were obtained on the technologist's workstation. Oral contrast: No. This CT examination was performed using dose optimization techniques as appropriate, variously including the following: *Automated exposure control *Adjustment of mA and/or kV according to patient size (this includes techniques or standardized protocols for targeted exams where dose is matched to indication/reason for exam; i.e. extremities or head) *Use of iterative reconstruction technique DLP: 507 mGy-cm FINDINGS: LUNG BASES: The visualized lung bases are unremarkable. LIVER, GALLBLADDER, AND BILIARY TREE: The liver is normal in size, shape, and attenuation. No focal hepatic lesion or biliary ductal dilatation is present. The gallbladder is unremarkable with no evidence of radiopaque gallstones, gallbladder wall thickening, or obvious pericholecystic inflammatory changes. PANCREAS: Unremarkable. SPLEEN: Unremarkable. ADRENAL GLANDS: Unremarkable. KIDNEYS AND URETERS: The kidneys are normal in size, shape, and attenuation. No hydronephrosis, hydroureter, or calculi seen. No perinephric stranding.No change from US renal BI with report dated 09/29/2021 4:13 PM. No change from US renal BI with report dated 09/29/2021 4:13 PM. BLADDER: Nondistended and unremarkable. GASTROINTESTINAL TRACT: Unremarkable rectosigmoid anastomosis. No evidence of leak or obstruction. There is prominent circumferential wall thickening of the distal transverse colon just proximal to the splenic flexure. There is mild adjacent fat stranding. No associated bowel obstruction. No additional bowel wall thickening or inflammatory change. No small or large bowel obstruction. Unremarkable appendix. PERITONEAL CAVITY: No intra-abdominal free air or free fluid. ABDOMINAL WALL: No significant hernia is appreciated. LYMPH NODES: No significant lymphadenopathy. VASCULAR: Unremarkable. PELVIC VISCERA: Status post hysterectomy. OSSEOUS STRUCTURES: Unremarkable. CT/CT abdomen pelvis w con IMPRESSION: 1. Prominent circumferential wall thickening of the distal transverse colon with mild adjacent fat stranding, consistent with acute colitis. Findings are new when compared to the prior examination. This could indicate an infectious or inflammatory process. An underlying lesion cannot be entirely excluded, and if there is clinical concern, follow-up upon resolution could help further evaluate. No evidence of perforation or abscess formation. 2. Otherwise unremarkable examination. Fleischner guidelines were followed.
[2021-11-11 13:59] VITALS: BP 138/81; PULSE 94; RESP 18; TEMP 36.7; O2SAT 98; BMI 23.2
[2021-11-11 15:33] LABS: MANUAL DIFF FLAG NO
[2021-11-11 15:34] LABS: Basophils Absolute Auto 0.1 X10*3/uL (0.0-0.2); Basophils Percent Auto 0.5 % (0-2); Eosinophils Absolute Auto 0.3 X10*3/uL (0.0-0.4); Eosinophils Percent Auto 2.3 % (0-4); Hematocrit 44.4 % (37.0-47.0); Hemoglobin 14.5 g/dl (12.0-16.0); Imm Gran Abs Auto 0.04 X10*3/uL (0.00-0.03); Imm Gran Pct Auto 0.3 % (0.0-0.4); Lymphocytes Absolute Auto 1.5 X10*3/uL (1.2-4.9); Lymphocytes Percent Auto 12.8 % (20-40); Mean Corpuscular HGB Conc 32.7 g/dl (31.0-35.0); Mean Corpuscular Hemoglobin 29.7 pg (27.0-33.0); Mean Corpuscular Volume 90.8 fL (80.0-98.0); Mean Platelet Volume 9.1 fL (9.4-12.3); Monocytes Absolute Auto 1.1 X10*3/uL (0.1-1.2); Monocytes Percent Auto 8.7 % (2-11); Neutrophils Absolute Auto 9.1 x10*3/uL (2.0-8.3); Neutrophils Percent Auto 75.4 % (45-73); Platelet Count 374 X10*3/uL (160-400); Red Blood Count 4.89 X10*6/uL (4.20-5.50); Red Cell Distribution Width 13.7 % (11.0-16.0)
--- NOTE | 2021-11-11 15:36 | ED.GENADULT ---
HPI - General Adult General Chief complaint: General Medical Stated complaint: Rectal bleeding Time Seen by Provider: 11/11/21 15:36 Source: patient Mode of arrival: ambulatory Limitations: no limitations History of Present Illness HPI narrative: 61-year-old female with past medical history of osteoarthritis of right foot, venous insufficiency right leg, PFO with atrial septal aneurysm, vitamin B and vitamin-D deficiency, colonoscopy screening in 2017 without polyps, internal hemorrhoids found. Patient reports that she went out yesterday with her father and had some barbecue chicken. Patient reports she came home and during the night she started with projectile vomiting, abdominal cramps with diarrhea. Today patient reports to have jelly like bloody stool. Occasional abdominal cramping. Patient denies having any nausea or vomiting at this time. Patient was at work and was going to go to urgent care and was encouraged to come to ED instead. Patient has mild diffuse abdominal cramping. Denies CP, PND, palpitations, SOB with or without exertion, presyncope, syncope Onset (ago): hour(s) Location: abdomen Radiation: non-radiation Severity: mild Quality: aching Pain Consistency: intermittent Related Data Home Medications Medication Instructions Recorded Confirmed aspirin 81 mg tablet,delayed 81 mg PO DAILY 09/12/20 07/06/21 release turmeric 400 mg capsule 1,000 mg PO 10/03/20 07/06/21 calcium carbonate 500 mg calcium 500 mg PO DAILY 12/12/20 07/06/21 (1,250 mg) capsule (Calci-Mix) cetirizine 10 mg tablet (Zyrtec) 10 mg PO DAILY PRN 04/03/21 07/06/21 furosemide 20 mg tablet 20 mg PO DAILY PRN 04/03/21 07/06/21 Previous Rx's Medication Instructions Recorded sumatriptan succinate 50 mg tablet 50 mg PO DAILY PRN #9 tab 09/26/21 nitrofurantoin 100 mg PO BID 5 Days #10 cap 10/30/21 monohydrate/macrocrystals 100 mg capsule (Macrobid) ciprofloxacin HCl 500 mg tablet 500 mg PO BID 14 Days #28 tab 11/11/21 metronidazole 500 mg tablet 500 mg PO Q12H 14 Days #28 tab 11/11/21 oxycodone 5 mg tablet 5 mg PO BID PRN #10 tab 12/11/21 Allergies Allergy/AdvReac Type Severity Reaction Status Date / Time hydromorphone [From DILAUDID] AdvReac Unknown MAKES ME Verified 10/30/21 08:24 LOOPY seasonal allergies Allergy Unknown Unknown Uncoded 10/30/21 08:24 Review of Systems Review of Systems: Constitutional : No Weight loss, No Fever, No Chills, No Night Sweats, No Fatigue, No Malaise ENT/Mouth : No Hearing loss, No Ear Pain, No Nasal Congestion, No Sinus Pain, No Hoarseness, No sore throat, No Rhinorrhea, No Swallowing Difficulty Eyes: No Eye Pain, No Swelling, No Redness, No Foreign Body, No Discharge, No Vision Changes Cardiovascular : No Chest Pain, No SOB, No Dyspnea on Exertion, No Orthopnea, No Edema, No Palpitations Respiratory : No Cough, No Sputum, No Wheezing, No Smoke Exposure, No Dyspnea Gastrointestinal : Nausea, Vomiting, Diarrhea, No Constipation, No abdominal Pain, Hematochezia, No Melena Genitourinary : no irregular bleeding, No Dysuria, No Urinary Frequency, No Hematuria, No Urinary Incontinence, No Urgency, No Flank Pain, No Urinary Flow Changes, No Hesitancy Musculoskeletal : No joint pain, No Myalgias, No Joint Swelling Skin : No Skin Lesions, No rash Neuro : No Weakness, No Numbness, No Paresthesias, No Loss of Consciousness, No Dizziness, No Headache Yes all other systems are reviewed and are negative [facility] Past Medical History Medical History Allergic rhinitis Annual physical exam Anxiety and depression Degenerative joint disease of foot, right Dependent edema Fatigue Mammogram normal Migraine headache Normal colonoscopy Obstructive sleep apnea on CPAP EVA on CPAP Osteoarthritis of foot, left PFO with atrial septal aneurysm Sleep disorder Vitamin B 12 deficiency Vitamin D insufficiency Surgical History History of bilateral knee replacement History of colon resection History of hysterectomy Hx of BSO (bilateral salpingo-oophorectomy) Status post reconstruction procedure Family History Family History Father No problems noted. Mother No problems noted. Sister Breast cancer CVD (cardiovascular disease) Paternal Grandmother Breast cancer Paternal Grandfather No problems noted. Maternal Aunt Breast cancer History of mastectomy Brother Pacemaker Sister Afib Autonomic neuropathy POTS (postural orthostatic tachycardia syndrome) Breast cancer Son Melanoma High serum lipoprotein(a) Social History Social History Housing: House Alcohol intake: current Alcohol intake frequency: holidays/special occasions only Patient Tobacco Use Status: Former Tobacco user Quit Date: 30 years ago e-Cigarette/Vaping Use: Never Used Advance Directives: No Advance Directives Information Provided: No Current occupational status: employed Physical Exam Vital Signs: Vital Signs: Last Vital Signs Temp 98.0 F 11/11/21 13:59 Pulse 78 11/11/21 17:45 Resp 16 11/11/21 17:45 BP 130/74 11/11/21 17:45 Pulse Ox 98 11/11/21 17:45 BMI result Body Mass Index 23.2 Const: General: healthy appearing, no acute distress and well developed Nutritional Appearance: well nourished Orientation/consciousness: patient oriented x3 HENMT: Head: Yes normal to inspection, Yes normocephalic and Yes atraumatic Face and sinus: Yes normal facial exam Mouth: Normal oral and palatal mucosa present Throat: Yes posterior oropharynx normal, Yes tonsils normal and Yes uvula midline Eyes: General: appearance normal, both eyes and all related structures Neck: Neck: Yes normal visual inspection, Yes full ROM and Yes trachea midline Thyroid: Thyroid normal Resp: Effort & Inspection: normal respiratory effort, able to speak in complete sentences, no tracheal deviation and symmetric chest movement Auscultation: clear to auscultation bilaterally Cardio: Jugular venous distension: no JVD Rate: regular rate Heart sounds: S1 normal heart sound present, S2 normal heart sound present, no gallops and no murmurs GI: Inspection: Yes normal to inspection and No distended Palpation (GI): Soft to palpation, not firm, nontender and No hepatosplenomegaly present Auscultation: normal bowel sounds : General: Yes no CVA tenderness Back/Spine/Pelvis: Back: no CVA tenderness Skin: General skin exam: elasticity normal, turgor normal and dry skin Neuro: General: patient oriented x3 Psych: Appearance: grossly normal Mental Status: mental status grossly normal Speech and movement: Normal speech and movement present Affect: normal affect Attitude: cooperative Thought process: Normal thought process present Thought content: Normal thought content present Insight: Good insight present (Psych) Judgement: Good judgement present (Psych) Course Course Course Narrative: 61-year-old female with past medical history EVA, osteoarthritis of left foot, PFO with atrial septal aneurysm, vitamin-D and vitamin-B deficiency, DJD is here today for evaluation. Patient reports that last night she ate barbecue chicken and started with projectile vomiting and diarrhea. This morning diarrhea turn into jelly like bloody stools. Patient denies any shortness of breath, syncope, presyncope. Denies any chest pain or palpitations. Patient reports that she was able to tolerate 2 large bottles of water. Patient no longer reports of nausea or vomiting. Mild fuse cramping mid abdominal area. Pain medication offered to patient, she declined. Patient reports that her pain is mild at this time. We will do CBC, CMP, lipase abdominal CT with IV contrast. Rule out colitis, proctocolitis, diverticulitis Reevaluation(s) Reevaluation #1: Labs unremarkable awaiting CT scan results. Patient continues to have mild cramping, denies diarrhea. Reevaluation #2: CT scan shows prominent circumferential wall thickening of the distal transverse colon with mild fat stranding consistent with acute colitis. I will put her on antibiotics for 2 weeks. Patient will follow-up with Dr. Knox. Patient might need to have a repeat of colorectal screening to further evaluate her transverse colon. Incidental finding possibility underlying lesion cannot be entirely excluded. will have Dr. Knox re-evaluate her in the office next week. Patient wants to go home and rest. Patient will return if she will have worsening symptoms. Patient was instructed to avoid alcoholic beverages while taking Flagyl. Clear liquid diet for the next 48 hours-72 hrs Medical Decision Making Lab Data Result diagrams: 11/11/21 15:19 11/11/21 15:19 Labs: Lab Results 11/11/21 11/11/21 11/11/21 Range/Units 15:19 15:19 15:19 WBC 12.0 H (4.8-10.8) X10*3/uL RBC 4.89 (4.20-5.50) X10*6/uL Hgb 14.5 (12.0-16.0) g/dl Hct 44.4 (37.0-47.0) % MCV 90.8 (80.0-98.0) fL MCH 29.7 (27.0-33.0) pg MCHC 32.7 (31.0-35.0) g/dl RDW 13.7 (11.0-16.0) % Plt Count 374 (160-400) X10*3/uL MPV 9.1 L (9.4-12.3) fL Immature Gran % (Auto) 0.3 (0.0-0.4) % Neut % (Auto) 75.4 H (45-73) % Lymph % (Auto) 12.8 L (20-40) % Hooker % (Auto) 8.7 (2-11) % Eos % (Auto) 2.3 (0-4) % Baso % (Auto) 0.5 (0-2) % Lymph # (Auto) 1.5 (1.2-4.9) X10*3/uL Hooker # (Auto) 1.1 (0.1-1.2) X10*3/uL Eos # (Auto) 0.3 (0.0-0.4) X10*3/uL Baso # (Auto) 0.1 (0.0-0.2) X10*3/uL Abs Immat Gran (auto) 0.04 H (0.00-0.03) X10*3/uL Absolute Neuts (auto) 9.1 H (2.0-8.3) x10*3/uL Absolute Nucleated RBC 0.000 (0.0-0.012) X10*3/uL Nucleated RBC % (auto) 0.0 (0.0-0.2) /100WBC PT 11.0 (9.9-13.0) SEC INR 1.0 (0.9-1.1) PTT (Heparin Protocol) 35.8 L (53-77.9) SEC Sodium 140 (135-145) mmol/L Potassium 3.8 (3.3-5.1) mmol/L Chloride 103 (96-108) mmol/L Carbon Dioxide 29 (22-29) mmol/L Anion Gap 12 (12-20) BUN 14 (9-16) mg/dL Creatinine 0.68 (0.5-1.4) mg/dL Estim Creat Clear Calc 80.2 Estimated GFR > 60 Random Glucose 92 (60-115) mg/dL Calcium 10.0 D (8.4-10.2) mg/dL Total Bilirubin 0.5 (0.0-1.0) mg/dL AST 22 (5-31) U/L ALT 23 (0-31) U/L Alkaline Phosphatase 117 D (39-117) U/L Total Protein 7.1 (6.5-8.0) g/dL Albumin 4.4 (3.5-5.0) g/dL Urine Color Urine Appearance Urine pH (5.0-8.0) Ur Specific [place] (1.005-1.025) Urine Protein (NEG-TRACE) MG/DL Urine Glucose (UA) (NEG) MG/DL Urine Ketones (NEG) MG/DL Urine Blood (NEG) Urine Nitrite (NEG) Ur Leukocyte Esterase (NEG) Urine RBC (0) /HPF Urine WBC (0-4) /HPF Ur Squamous Epith Cells /LPF Calcium Oxalate Crystal /LPF Urine Bacteria /LPF 11/11/21 Range/Units 15:55 WBC (4.8-10.8) X10*3/uL RBC (4.20-5.50) X10*6/uL Hgb (12.0-16.0) g/dl Hct (37.0-47.0) % MCV (80.0-98.0) fL MCH (27.0-33.0) pg MCHC (31.0-35.0) g/dl RDW (11.0-16.0) % Plt Count (160-400) X10*3/uL MPV (9.4-12.3) fL Immature Gran % (Auto) (0.0-0.4) % Neut % (Auto) (45-73) % Lymph % (Auto) (20-40) % Hooker % (Auto) (2-11) % Eos % (Auto) (0-4) % Baso % (Auto) (0-2) % Lymph # (Auto) (1.2-4.9) X10*3/uL [place]er # (Auto) (0.1-1.2) X10*3/uL Eos # (Auto) (0.0-0.4) X10*3/uL Baso # (Auto) (0.0-0.2) X10*3/uL Abs Immat Gran (auto) (0.00-0.03) X10*3/uL Absolute Neuts (auto) (2.0-8.3) x10*3/uL Absolute Nucleated RBC (0.0-0.012) X10*3/uL Nucleated RBC % (auto) (0.0-0.2) /100WBC PT (9.9-13.0) SEC INR (0.9-1.1) PTT (Heparin Protocol) (53-77.9) SEC Sodium (135-145) mmol/L Potassium (3.3-5.1) mmol/L Chloride (96-108) mmol/L Carbon Dioxide (22-29) mmol/L Anion Gap (12-20) BUN (9-16) mg/dL Creatinine (0.5-1.4) mg/dL Estim Creat Clear Calc Estimated GFR Random Glucose (60-115) mg/dL Calcium (8.4-10.2) mg/dL Total Bilirubin (0.0-1.0) mg/dL AST (5-31) U/L ALT (0-31) U/L Alkaline Phosphatase (39-117) U/L Total Protein (6.5-8.0) g/dL Albumin (3.5-5.0) g/dL Urine Color YELLOW Urine Appearance CLEAR Urine pH 6.0 (5.0-8.0) Ur Specific [place] 1.010 (1.005-1.025) Urine Protein NEG (NEG-TRACE) MG/DL Urine Glucose (UA) NEG (NEG) MG/DL Urine Ketones 15 (NEG) MG/DL Urine Blood 1+ H (NEG) Urine Nitrite NEG (NEG) Ur Leukocyte Esterase TRACE H (NEG) Urine RBC 5-9 H (0) /HPF Urine WBC 0 (0-4) /HPF Ur Squamous Epith Cells TRACE /LPF Calcium Oxalate Crystal 1+ /LPF Urine Bacteria NONE /LPF Imaging Data CT scan - abdomen: Attestation: I personally reviewed and interpreted this imaging study as follows: Radiologist's impression: FINDINGS: LUNG BASES: The visualized lung bases are unremarkable.? LIVER, GALLBLADDER, AND BILIARY TREE: The liver is normal in size, shape, and attenuation. No focal hepatic lesion or biliary ductal dilatation is present. The gallbladder is unremarkable with no evidence of radiopaque gallstones, gallbladder wall thickening, or obvious pericholecystic inflammatory changes.? PANCREAS: Unremarkable.? SPLEEN: Unremarkable.? ADRENAL GLANDS: Unremarkable.? KIDNEYS AND URETERS: The kidneys are normal in size, shape, and attenuation. No hydronephrosis, hydroureter, or calculi seen. No perinephric stranding.No change from US renal BI with report dated 09/29/2021 4:13 PM. No change from US renal BI with report dated 09/29/2021 4:13 PM. BLADDER: Nondistended and unremarkable.? GASTROINTESTINAL TRACT: Unremarkable rectosigmoid anastomosis. No evidence of leak or obstruction. There is prominent circumferential wall thickening of the distal transverse colon just proximal to the splenic flexure. There is mild adjacent fat stranding. No associated bowel obstruction. No additional bowel wall thickening or inflammatory change. No small or large bowel obstruction. Unremarkable appendix. PERITONEAL CAVITY: No intra-abdominal free air or free fluid.? ABDOMINAL WALL: No significant hernia is appreciated.? LYMPH NODES: No significant lymphadenopathy. VASCULAR: Unremarkable. PELVIC VISCERA: Status post hysterectomy.? OSSEOUS STRUCTURES: Unremarkable.? IMPRESSION: 1. Prominent circumferential wall thickening of the distal transverse colon with mild adjacent fat stranding, consistent with acute colitis. Findings are new when compared to the prior examination. This could indicate an infectious or inflammatory process. An underlying lesion cannot be entirely excluded, and if there is clinical concern, follow-up upon resolution could help further evaluate. No evidence of perforation or abscess formation. ? 2. Otherwise unremarkable examination.? ? Discharge Plan Discharge Clinical Impression: Acute colitis Patient Disposition: Home, Self-Care Instructions: Clear Liquid Diet (ED), Colitis (ED) Additional Instructions: You were seen here today for bloody diarrhea. You lab work was unremarkable. Your CT scan shows that you have active colitis of your transverse colon. Please follow-up with your public health outreach worker in the next 3-4 days. You were given 1st dose of antibiotics in the emergency department you will be giving antibiotics for the total of 14 days. Please make sure you do not drink alcoholic beverages while taking the antibiotics. You may take oxycodone for pain, however if you will become constipated you may take stool softeners to help you move your bowels. Please return to emergency department if your symptoms will get worse or if you experience any additional concerning symptoms. Please hold taking your baby aspirin for now. Prescriptions: New metronidazole 500 mg tablet 500 mg PO Q12H 14 Days Qty: 28 RF: 0 ciprofloxacin HCl 500 mg tablet 500 mg PO BID 14 Days Qty: 28 RF: 0 oxycodone 5 mg tablet 5 mg PO BID PRN (Reason: pain) Qty: 10 RF: 0 No Action sumatriptan succinate 50 mg tablet 50 mg PO DAILY PRN (Reason: for headache) Qty: 9 RF: 8 turmeric 400 mg Capsule 1,000 mg PO RF: 0 aspirin 81 mg tablet,delayed release (DR/EC) 81 mg PO DAILY RF: 0 furosemide 20 mg tablet 20 mg PO DAILY PRNRF: 0 Calci-Mix 500 mg calcium (1,250 mg) capsule 500 mg PO DAILY RF: 0 cetirizine [Zyrtec] 10 mg tablet 10 mg PO DAILY PRNRF: 0 nitrofurantoin monohyd/m-cryst [Macrobid] 100 mg capsule 100 mg PO BID 5 Days Qty: 10 RF: 0 Referrals: Xenia Gr MD [Primary Care Provider] - 2 days Christian Knox [Physician] - 5 days ( acute colitis) Stand Alone Forms: Work/School Release Interventions: ED Discharge Assessment Last Done: 11/11/21 18:52 Discharge Date/Time: 11/11/21 18:53
[2021-11-11 15:46] LABS: PTT Heparin Drip 35.8 SEC (53-77.9)
[2021-11-11 15:48] LABS: Alanine Aminotransferase 23 U/L (0-31); Albumin Level 4.4 g/dL (3.5-5.0); Alkaline Phosphatase 117 U/L (39-117); Anion Gap 12 (12-20); Aspartate Amino Transferase 22 U/L (5-31); Bilirubin Total 0.5 mg/dL (0.0-1.0); Blood Urea Nitrogen 14 mg/dL (9-16); Carbon Dioxide 29 mmol/L (22-29); Chloride 103 mmol/L (96-108); Creatinine Clr Calc Pharmacy 80.2; Estimated Glomerular Filt Rate > 60; Glucose Random 92 mg/dL (60-115); Potassium 3.8 mmol/L (3.3-5.1); Sodium 140 mmol/L (135-145); Total Protein 7.1 g/dL (6.5-8.0)
[2021-11-11] MEDS: 0.9 % Sodium Chloride 1,000 ML 999 ML IV (16:08)
[2021-11-11 16:11] LABS: Appearance Urine CLEAR; Color Urine YELLOW; Glucose Urine UA NEG (NEG); Leukocyte Esterase Urine TRACE (NEG); Nitrite Urine NEG (NEG); UACC Culture Trigger YES; Urine Blood 1+ (NEG); Urine Ketones 15 MG/DL (NEG); Urine Protein NEG (NEG-TRACE)
[2021-11-11 16:26] VITALS: BP 132/78; PULSE 82; RESP 16; O2SAT 98
[2021-11-11 16:37] LABS: Calcium Oxalate Crystals Urine 1+ /LPF; Squamous Epithelial Cell Urine TRACE /LPF; WBC Urine 0 /HPF (0-4)
[2021-11-11] MEDS: iohexoL 350 MG/ML 100 ML INFUS..BTL IV (16:43)
[2021-11-11 17:45] VITALS: BP 130/74; PULSE 78; RESP 16; O2SAT 98
== END 2021-11-11 18:53 | disposition home or self-care (01) ==
PROVIDERS: Nurse Practitioner Family; Emergency Provider Emergency Medicine; PCP Internal Medicine
DX: K52.9 Noninfective gastroenteritis and colitis, unspecified (principal); R10.9 Unspecified abdominal pain; R11.10 Vomiting, unspecified
CPT/HCPCS: 36415; 74177; 80053; 81001; 85025; 85610; 85730; 87086; 87088; 87186; 96360; 99284; Q9967

== ENCOUNTER 2021-11-15 14:36 | Outpatient (REF) | payer OTHER, SELFPAY ==
[2021-11-15 14:50] LABS: MANUAL DIFF FLAG NO
[2021-11-15 15:48] LABS: Basophils Percent Auto 0.5 % (0-2); Eosinophils Absolute Auto 0.2 X10*3/uL (0.0-0.4); Eosinophils Percent Auto 1.8 % (0-4); Hematocrit 45.7 % (37.0-47.0); Hemoglobin 14.8 g/dl (12.0-16.0); Imm Gran Abs Auto 0.02 X10*3/uL (0.00-0.03); Imm Gran Pct Auto 0.2 % (0.0-0.4); Lymphocytes Absolute Auto 1.6 X10*3/uL (1.2-4.9); Lymphocytes Percent Auto 19.5 % (20-40); Mean Corpuscular HGB Conc 32.4 g/dl (31.0-35.0); Mean Corpuscular Hemoglobin 29.4 pg (27.0-33.0); Mean Corpuscular Volume 90.9 fL (80.0-98.0); Monocytes Absolute Auto 0.6 X10*3/uL (0.1-1.2); Monocytes Percent Auto 7.3 % (2-11); Neutrophils Absolute Auto 5.9 x10*3/uL (2.0-8.3); Neutrophils Percent Auto 70.7 % (45-73); Platelet Count 433 X10*3/uL (160-400); Red Blood Count 5.03 X10*6/uL (4.20-5.50); Red Cell Distribution Width 13.3 % (11.0-16.0); White Blood Count 8.4 X10*3/uL (4.8-10.8)
== END 2021-11-15 14:37 | disposition home or self-care (01) ==
LOC: HO.LAB 14:36
PROVIDERS: PCP Internal Medicine; Visit Provider Internal Medicine
DX: K52.9 Noninfective gastroenteritis and colitis, unspecified (principal); K62.5 Hemorrhage of anus and rectum
CPT/HCPCS: 36415; 85025

== ENCOUNTER 2021-11-29 07:42 | Day surgery (SDC) | payer OTHER, SELFPAY ==
[2021-11-29 08:37] VITALS: BP 119/71; PULSE 70; RESP 16; TEMP 36.6; O2SAT 98; BMI 22.6
--- NOTE | 2021-11-29 08:49 | P.CONAN_ITS ---
COUNTS INCLUDE 234 BEDS AT THE [facility] Active Problems Active Problems: All Active Problems (Updated 11/29/21 @ 08:32 by Indira boswell RN) Venous insufficiency of right leg (Acute) Hematuria (Acute) Vulvar lesion (Acute) UTI (urinary tract infection) (Acute) Vulvar inflammation (Acute) Osteoarthritis of foot, left (Acute) Obstructive sleep apnea on CPAP (Acute) PFO with atrial septal aneurysm (Acute) Annual physical exam (Acute) Mammogram normal (Acute) Normal colonoscopy (Acute) Vitamin D insufficiency (Acute) Fatigue (Acute) Vitamin B 12 deficiency (Acute) Degenerative joint disease of foot, right (Acute) Past Medical History Medical History Allergic rhinitis Annual physical exam Degenerative joint disease of foot, right Dependent edema Fatigue Mammogram normal Migraine headache Normal colonoscopy Obstructive sleep apnea on CPAP EVA on CPAP Osteoarthritis of foot, left PFO with atrial septal aneurysm Sleep disorder Vitamin B 12 deficiency Vitamin D insufficiency Family History Family History Father No problems noted. Mother No problems noted. Sister Breast cancer CVD (cardiovascular disease) Paternal Grandmother Breast cancer Paternal Grandfather No problems noted. Maternal Aunt Breast cancer History of mastectomy Brother Pacemaker Sister Afib Autonomic neuropathy POTS (postural orthostatic tachycardia syndrome) Breast cancer Son Melanoma High serum lipoprotein(a) Surgical History Surgical History History of bilateral knee replacement History of colon resection History of hysterectomy Hx of BSO (bilateral salpingo-oophorectomy) History of Problems with Anesthesia: No Social History Social History Housing: House Alcohol intake: current Alcohol intake frequency: holidays/special occasions only Patient Tobacco Use Status: Former Tobacco user Quit Date: 30 yr ago e-Cigarette/Vaping Use: Never Used Use of substances other than those prescribed or required for medical reasons: No Are you DNR?: No Advance Directives: No Advance Directives Information Provided: Yes Current occupational status: employed Meds Allergies Allergy/AdvReac Type Severity Reaction Status Date / Time hydromorphone [From DILAUDID] AdvReac Unknown MAKES ME Verified 11/29/21 08:33 LOOPY seasonal allergies Allergy Unknown Unknown Uncoded 10/30/21 08:24 Active Medications: Current Medications Sodium Biphosphate/Sodium Phosphate (Sodium Phosphate,Garfield-Dibasic 133 Ml Enema) 133 ml CO ONCE PRN PRN Reason: Poor Colonoscopy Prep Results Home Medications Medication Instructions Recorded Confirmed Last Taken Type aspirin 81 mg tablet,delayed 81 mg PO DAILY 09/12/20 07/06/21 11/24/21 History release turmeric 400 mg capsule 1,000 mg PO 10/03/20 07/06/21 09/26/20 History calcium carbonate 500 mg calcium 500 mg PO DAILY 12/12/20 07/06/21 Unknown History (1,250 mg) capsule (Calci-Mix) cetirizine 10 mg tablet (Zyrtec) 10 mg PO DAILY PRN 04/03/21 07/06/21 Unknown History furosemide 20 mg tablet 20 mg PO DAILY PRN 04/03/21 07/06/21 Unknown History Exam Exam Date and Time: November 29, 2021 0849 Height,Weight and Vital Signs: Height 5 ft 6.5 in Weight 64.41 kg Last Vital Signs Temp 97.9 F 11/29/21 08:37 Pulse 70 11/29/21 08:37 Resp 16 11/29/21 08:37 BP 119/71 11/29/21 08:37 Pulse Ox 98 11/29/21 08:37 Airway Mallampati Class: II TM Dist: >3cm Neck ROM: Full Loose/Missing/Broken Teeth: No Heart: RRR Lungs: CTA Assessment and Plan Assessment Anesthesia Assessment: Anesthesia Plan Discussed and Chart Reviewed Final Anesthetic Review History of Problems with Anesthesia: No NPO: Yes ASA Class: III Final Preanesthetic Review: Meds/Allgs Chart Reviewed, Consent Obtained/Reviewed and Anes Risks/Benef Reviewed Patient Risk: Intermediate Procedure Risk: Low Anesthetic Plan Anesthetic Plan: MAC: Disposition: Standard PACU
[2021-11-29] MEDS: Ampicillin Sodium 2 GM in 0.9 % Sodium Chloride 100 ML IV (08:55)
[2021-11-29] MEDS: Lactated Ringers 1,000 ML 50 ML IVCONT (09:15)
[2021-11-29] MEDS: Gentamicin Sulfate/NaCl 80 MG/100 ML PIGGYBACK 100 MG IV (09:23)
[2021-11-29 10:20] VITALS: BP 104/61; PULSE 73; RESP 18; TEMP 36.4; O2SAT 100
--- NOTE | 2021-11-29 10:27 | P.BOP_ITS ---
Brief Operative Note Date of Service: 11/29/21 Pre-op diagnosis: Abnormal CT of colon, Rectal bleeding Post-op diagnosis: other (Internal hemorrhoids) Procedure: Colonoscopy to the cecum and TI Surgeon: Christian Knox Anesthesia: MAC Was an Sales Product Manager used for this Procedure?: No Estimated blood loss (mL): 0 Pathology: none sent Condition: stable Disposition: PACU
[2021-11-29 10:39] VITALS: BP 118/62; PULSE 77; RESP 18; TEMP 36.4; O2SAT 97
--- NOTE | 2021-11-29 10:45 | OP_ITS ---
SURGEON: Christian Knox MD INDICATIONS: The patient presents for evaluation of abnormal CT scan of colon and rectal bleeding. Full consent was obtained from her for this, including risks of bleeding and perforation. PREOPERATIVE DIAGNOSIS: POSTOPERATIVE DIAGNOSIS: PROCEDURE PERFORMED: Colonoscopy to cecum and terminal ileum. ESTIMATED BLOOD LOSS: COMPLICATIONS: ANESTHESIA: Monitored anesthesia care. ASSISTANTS: SPECIMENS: PREOPERATIVE DIAGNOSES: Abnormal CT scan of colon and rectal bleeding. POSTOPERATIVE DIAGNOSES: Abnormal CT scan of colon and rectal bleeding, internal hemorrhoids. DESCRIPTION OF PROCEDURE: The patient was placed in the left lateral decubitus position. The digital rectal exam revealed no abnormalities. The Olympus video pediatric colonoscope was entered into the rectum and advanced to the cecum with the assistance of abdominal wall pressure. Once in the cecum, I did identify normal-appearing cecal pouch with appendiceal orifice and a normal-appearing ileocecal valve. The terminal ileum was cannulated and appeared normal. The scope was withdrawn back in the colon. The entire cecum and ileocecal valve appeared normal. The scope was slowly withdrawn assessing all mucosal surfaces carefully. Preparation was excellent. I did not visualize any sign of colitis, polyps, nor angiodysplasia. Her anastomosis from her previous sigmoid resection was visualized at approximately 10 cm and appeared normal. In the rectum, scope was retroflexed visualizing some small internal hemorrhoids, but no other pathology. The rectal mucosa appeared normal. The scope was straightened and withdrawn from the patient. She tolerated the procedure well and was returned to recovery area in stable condition. IMPRESSION: Internal hemorrhoids, otherwise normal colonoscopy including the anastomosis. No evidence of any residual colitis. PLAN: At this point, the patient has been feeling well and back to normal. It does appear that the colitis earlier in the month was related to probably an infectious process given the acuity and rapid improvement. At this point, she will see me on a p.r.n. basis. I would recommend a repeat colonoscopy in 10 years for further screening given that this was her 3rd negative colonoscopy since 2009. She did receive preprocedure antibiotics for prophylaxis in regard to her patent foramen ovale and was given a prescription for amoxicillin to use later today. MD BEATRIZ Vargas/ESTEFANI / [phone]
== END 2021-11-29 11:13 | disposition home or self-care (01) ==
PROVIDERS: PCP Internal Medicine; Visit Provider Internal Medicine
PROC: 0DJD8ZZ Inspection of Lower Intestinal Tract, Via Natural or Artificial Opening Endoscopic (ICD-10-PCS; CPT 45378; principal; 2021-11-29 09:20)
DX: K62.5 Hemorrhage of anus and rectum (principal); K64.8 Other hemorrhoids; Z90.49 Acquired absence of other specified parts of digestive tract; Z98.0 Intestinal bypass and anastomosis status; J30.2 Other seasonal allergic rhinitis; G47.33 Obstructive sleep apnea (adult) (pediatric); Q21.1 Atrial septal defect; Z79.82 Long term (current) use of aspirin; Z88.8 Allergy status to other drugs, medicaments and biological substances; Z87.891 Personal history of nicotine dependence
CPT/HCPCS: 45378; J0290; J1580

== ENCOUNTER → 2022-01-11 14:55 | Outpatient (BNVA) | payer OTHER, SELFPAY | PROVIDERS: PCP Internal Medicine; Referring Provider Internal Medicine; Visit Provider Internal Medicine Cardiovascular Disease ==

== ENCOUNTER → 2022-01-15 09:38 | Outpatient (BNVA) | payer OTHER, SELFPAY | PROVIDERS: PCP Internal Medicine; Visit Provider Obstetrics & Gynecology ==

== ENCOUNTER → 2022-03-06 08:04 | Outpatient (BNVA) | payer OTHER, SELFPAY | PROVIDERS: PCP Internal Medicine; Visit Provider Obstetrics & Gynecology | DX: Z13.89 Encounter for screening for other disorder (principal) ==

== ENCOUNTER 2022-03-21 11:20 | Outpatient (REF) | payer OTHER, SELFPAY ==
[2022-03-21 13:56] LABS: Hematocrit 46.2 % (37.0-47.0); Hemoglobin 14.8 g/dl (12.0-16.0); Mean Corpuscular Hemoglobin 29.5 pg (27.0-33.0); Mean Corpuscular Volume 92.2 fL (80.0-98.0); Mean Platelet Volume 10.3 fL (9.4-12.3); Platelet Count 399 X10*3/uL (160-400); Red Blood Count 5.01 X10*6/uL (4.20-5.50); Red Cell Distribution Width 13.2 % (11.0-16.0); White Blood Count 7.1 X10*3/uL (4.8-10.8)
[2022-03-21 14:15] LABS: Alanine Aminotransferase 19 U/L (0-31); Albumin Level 4.3 g/dL (3.5-5.0); Alkaline Phosphatase 95 U/L (39-117); Anion Gap 12 (12-20); Aspartate Amino Transferase 18 U/L (5-31); Bilirubin Total 0.4 mg/dL (0.0-1.0); Blood Urea Nitrogen 13 mg/dL (9-16); Carbon Dioxide 30 mmol/L (22-29); Chloride 102 mmol/L (96-108); Cholesterol 219 mg/dL; Estimated Glomerular Filt Rate > 60; Glucose Fasting 91 mg/dL (60-99); HDL Cholesterol 85 mg/dL; LDL Cholesterol Calculated 123 mg/dl; Potassium 4.3 mmol/L (3.3-5.1); Sodium 140 mmol/L (135-145); Total Protein 7.1 g/dL (6.5-8.0); Triglycerides 57 mg/dL
[2022-03-21 14:27] LABS: TSH reflex Free T4 0.61 uIU/mL (0.32-4.0); Vitamin D 25-OH Total 43.3 ng/mL (>30)
== END 2022-03-21 11:21 | disposition home or self-care (01) ==
LOC: HO.HMGCLDS 11:20
PROVIDERS: PCP Internal Medicine; Visit Provider Internal Medicine
DX: Z00.00 Encounter for general adult medical examination without abnormal findings (principal); E53.8 Deficiency of other specified B group vitamins; E55.9 Vitamin D deficiency, unspecified
CPT/HCPCS: 36415; 80053; 80061; 82306; 84443; 85027

== ENCOUNTER 2022-04-24 15:26 | Outpatient (REF) | payer OTHER, SELFPAY ==
--- NOTE | ~2022-04-24 | MM_ITS ---
EXAMINATION: MM SCREENING DIGITAL BREAST TOMOSYNTHESIS, BILATERAL CLINICAL INFORMATION: Screening. Asymptomatic. Family history breast cancer, sister age 45, paternal grandmother age 60. The lifetime risk of breast cancer based on the Tyrer-Cuzick Model is 9%. COMPARISON: Mammography: 01/11/2021, 02/13/2019, 02/06/2018, 01/25/2017 TECHNIQUE: Digital breast tomosynthesis is performed in both the craniocaudal and mediolateral oblique views along with computer-aided detection (CAD). Synthesized 2D images are generated from the tomosynthesis. Additional exaggerated right CC view is provided. FINDINGS: There are scattered areas of fibroglandular density (ACR BI-RADS breast composition Category b). There are no significant masses, abnormal calcifications, or other abnormalities. Parenchymal pattern is similar to prior studies. No developing density. No significant changes. The axilla are unremarkable. MM/MM tomosynthesis screening BI IMPRESSION: No mammographic evidence of malignancy. ASSESSMENT: BI-RADS 1: Negative RECOMMENDATION: Routine annual mammography screening. This patient's information was entered into a reminder system with a target due date for their next mammogram.
== END 2022-04-24 15:27 | disposition home or self-care (01) ==
LOC: HO.MAMMO 15:26
PROVIDERS: PCP Internal Medicine; Visit Provider Obstetrics & Gynecology
DX: Z12.31 Encounter for screening mammogram for malignant neoplasm of breast (principal)
CPT/HCPCS: 77063; 77067

== ENCOUNTER 2022-08-09 08:08 | Outpatient (REF) | payer OTHER, SELFPAY ==
[2022-08-09 08:46] LABS: COVID-19 Test Negative (Negative)
== END 2022-08-09 08:09 | disposition home or self-care (01) ==
LOC: HO.LAB 08:08
PROVIDERS: PCP Internal Medicine; Visit Provider Internal Medicine
DX: Z20.822 Contact with and (suspected) exposure to COVID-19 (principal)
CPT/HCPCS: 87635

== ENCOUNTER 2022-08-10 17:50 | Outpatient (REF) | payer OTHER, SELFPAY ==
[2022-08-10 18:42] LABS: Influenza A PCR NEGATIVE (Negative); Influenza B PCR NEGATIVE (Negative); Resp Syncy Virus RNA Qual PCR NEGATIVE (Negative); SARS COV2 PCR INHOUSE NEGATIVE (Negative)
== END 2022-08-10 17:51 | disposition home or self-care (01) ==
LOC: HO.LNP 17:50
PROVIDERS: Visit Provider Nurse Practitioner Family
DX: Z20.822 Contact with and (suspected) exposure to COVID-19 (principal); J06.9 Acute upper respiratory infection, unspecified
CPT/HCPCS: 0241U

== ENCOUNTER 2022-11-23 06:45 | Outpatient (REF) | payer OTHER, SELFPAY ==
[2022-11-23 07:27] LABS: COVID-19 Test Positive (Negative)
== END 2022-11-23 06:46 | disposition home or self-care (01) ==
LOC: HO.LAB 06:45
PROVIDERS: Visit Provider Internal Medicine
DX: Z20.822 Contact with and (suspected) exposure to COVID-19 (principal)
CPT/HCPCS: 87635

== ENCOUNTER 2023-01-17 09:20 | Outpatient (REF) | payer OTHER, SELFPAY ==
[2023-01-18 13:14] LABS: BV Int Neg Control Negative (Negative); BV Int Pos Control Positive (Positive)
== END 2023-01-17 09:21 | disposition home or self-care (01) ==
LOC: HO.LNP 09:20
PROVIDERS: PCP Internal Medicine; Visit Provider Obstetrics & Gynecology
DX: N90.89 Other specified noninflammatory disorders of vulva and perineum (principal)
CPT/HCPCS: 56605; 87480; 87510; 87660; 88305; 88312

== ENCOUNTER → 2023-02-14 09:16 | Outpatient (BNVA) | payer OTHER, SELFPAY | PROVIDERS: PCP Internal Medicine; Visit Provider Obstetrics & Gynecology | DX: Z13.89 Encounter for screening for other disorder (principal) ==

== ENCOUNTER → 2023-02-19 15:02 | Outpatient (BNVA) | payer OTHER, SELFPAY | PROVIDERS: PCP Internal Medicine; Referring Provider Internal Medicine; Visit Provider Nurse Practitioner Family | DX: R00.2 Palpitations (principal); R06.02 Shortness of breath | CPT/HCPCS: 93005 ==

== ENCOUNTER → 2023-02-26 12:45 | Outpatient (REF) | payer OTHER, SELFPAY ==
--- NOTE | 2023-02-26 12:48 | CA_ITS ---
Transthoracic Echocardiogram Patient (Last, First, Middle): Andra Lezama L Gender: Female Date of : 1960 Age: 62 Procedure Date: 02/26/2023 Procedure Type: Transthoracic Echocardiogram Location: OP Height: 170.18 cm Weight: 71.22 kg BSA: 1.82 m2 Heart Rate: bpm BP: 104 / 70 mmHg Maintenance Craftsman: TO Referring MD: Maria Ines Alva RETENTION REPRESENTATIVEPhoebe Symptoms: Q21.1 - Atrial septal defect Study Quality: Fair ECG Rhythm: Sinus Conclusions: - The left ventricular systolic function is normal. The calculated ejection fraction is 66% by biplane method. - There is mild calcification of the aortic valve. - There is mild mitral valve regurgitation. - There is mild tricuspid valve regurgitation. - There is an interatrial septal aneurysm seen bowing to the right. Possible shunting but not definitive. Findings Left Ventricle Normal left ventricular cavity size. There is normal left ventricular wall thickness. The left ventricular systolic function is normal. The calculated ejection fraction is 66% by biplane method. There is no evidence of regional wall motion abnormalities. Diastolic function is normal for age. LV peak GLS -21.3%. Right Ventricle Normal right ventricular cavity size and systolic function. Atria Both atria are normal in size. There is an interatrial septal aneurysm seen bowing to the right. Possible shunting but not definitive. Aortic Valve There is a normal trileaflet aortic valve. There is mild calcification of the aortic valve. There is no aortic valve stenosis. There is no aortic valve regurgitation. Mitral Valve The mitral valve appears normal. There is mild mitral valve regurgitation. There is no mitral valve stenosis. Pulmonic Valve The pulmonic valve is likely normal. Tricuspid Valve Normal tricuspid valve structure. There is mild tricuspid valve regurgitation. There is no evidence of pulmonary hypertension. Great Vessels The aortic annulus, sinuses of valsalva, and asc aorta are normal in size. Venous The inferior vena cava is normal in size and collapses greater than 50% with inspiration. Pericardium/Pleural There is no evidence of pericardial effusion. Prior Study Comparison No significant change compared to prior study dated: 10/18/2018. Recommendations, Care & Conclusions Recommend contrast study to evaluate intracardiac shunting. Measurements 2D Linear Measurements IVSd: 0.98 0.6-0.9/0.6-1.0 cm LVIDd: 3.93 3.9-5.3/4.2-5.9 cm LVIDd Index: 2.16 2.4-3.2/2.2-3.1 cm/m2 LVIDs: 2.40 2.0-3.6 cm LVPWd: 0.81 0.7-1.1 cm LA Diam: 3.00 2.7-3.8/3.0-4.0 cm LAIDs Index: 1.65 1.5-2.3 cm/m2 LV Mass: 130.59 67-162/88-224 g LV Mass Index: 71.75 43-95/49-115 g/m2 LVOT Diam: 2.00 3.0+(-)1.3 cm 2D Systolic Function EF 4C: 65.90 >55% EF 2C: 65.50 >55% EF BiP: 66.00 >55% Mitral Valve MV Pk E: 0.93 MV PK A: 0.60 MV Decel Time: 206.00 E/A: 1.60 E'Lateral: 13.30 E'Medial: 8.81 E/E' Med: 10.60 E/E' Lat: 7.00 PHT: 60.00 MVA PHT: 3.67 Decel [place]: 4.53 Aortic Valve AoV Pk Juan Antonio: 1.64 AoV Mn Juan Antonio: 1.11 AoV VTI: 0.35 AoV Pk Grad: 11.00 Aov Mn Grad: 5.00 JODI Cont.VTI: 2.77 LVOT LVOT Pk Juan Antonio: 1.47 LVOT Mn Juan Antonio: 0.90 LVOT VTI: 0.31 LVOT Pk Grad: 9.00 LVOT Mn Grad: 4.00 LVOT Diam: 2.00 LVOT Area: 3.14 Diastolic Function MV Pk E: 0.93 MV Pk A: 0.60 E/A: 1.60 E'Medial: 8.81 E/E' Med: 10.60 E' Laterial: 13.30 E/E' Lat: 7.00 Right Ventricle TAPSE (mm): 28.80 TVS' Juan Antonio: 12.70 Tricuspid Valve TR Pk Juan Antonio: 2.62 TR Pk Grad: 27.00 RA Press: 3.00 RVSP: 30.00 Great Vessels Aorta Sinus of Valsalva: 3.43 2.0-3.5 cm Ao Asc: 2.90 2.1-3.4 cm Updated in Other Vendor System with Status of Final Art Gross MD electronically signed on 02/27/2023 4:25:55 PM with status of Final
== END ==
LOC: HO.CARD 12:45
PROVIDERS: PCP Internal Medicine; Visit Provider Internal Medicine Cardiovascular Disease
DX: R06.02 Shortness of breath (principal); Q21.10 Atrial septal defect, unspecified
CPT/HCPCS: 93306; 93356

== ENCOUNTER 2023-04-17 14:10 | Outpatient (REF) | payer OTHER, SELFPAY ==
[2023-04-17 16:56] LABS: MANUAL DIFF FLAG NO
[2023-04-17 17:29] LABS: Basophils Absolute Auto 0.1 X10*3/uL (0.0-0.2); Basophils Percent Auto 0.8 % (0-2); Eosinophils Absolute Auto 0.1 X10*3/uL (0.0-0.4); Eosinophils Percent Auto 1.7 % (0-4); Hematocrit 47.7 % (37.0-47.0); Hemoglobin 15.3 g/dl (12.0-16.0); Imm Gran Abs Auto 0.02 X10*3/uL (0.00-0.03); Imm Gran Pct Auto 0.3 % (0.0-0.4); Lymphocytes Absolute Auto 1.5 X10*3/uL (1.2-4.9); Lymphocytes Percent Auto 20.6 % (20-40); Mean Corpuscular HGB Conc 32.1 g/dl (31.0-35.0); Mean Corpuscular Hemoglobin 29.8 pg (27.0-33.0); Mean Corpuscular Volume 92.8 fL (80.0-98.0); Mean Platelet Volume 10.5 fL (9.4-12.3); Monocytes Absolute Auto 0.5 X10*3/uL (0.1-1.2); Monocytes Percent Auto 7.2 % (2-11); Neutrophils Absolute Auto 4.9 x10*3/uL (2.0-8.3); Neutrophils Percent Auto 69.4 % (45-73); Platelet Count 417 X10*3/uL (160-400); Red Blood Count 5.14 X10*6/uL (4.20-5.50); Red Cell Distribution Width 12.7 % (11.0-16.0); White Blood Count 7.1 X10*3/uL (4.8-10.8)
[2023-04-17 18:06] LABS: Alanine Aminotransferase 22 U/L (0-31); Albumin Level 4.5 g/dL (3.5-5.0); Alkaline Phosphatase 90 U/L (39-117); Anion Gap 14 (12-20); Aspartate Amino Transferase 26 U/L (5-31); Bilirubin Total 0.6 mg/dL (0.0-1.0); Blood Urea Nitrogen 14 mg/dL (9-16); Calcium 9.9 mg/dL (8.4-10.2); Carbon Dioxide 26 mmol/L (22-29); Chloride 104 mmol/L (96-108); Cholesterol 239 mg/dL; Estimated Glomerular Filt Rate > 60; Glucose Fasting 80 mg/dL (60-99); HDL Cholesterol 73 mg/dL; LDL Cholesterol Calculated 150 mg/dl; Potassium 4.2 mmol/L (3.3-5.1); Sodium 140 mmol/L (135-145); Total Protein 7.3 g/dL (6.5-8.0); Triglycerides 83 mg/dL
[2023-04-17 18:26] LABS: TSH reflex Free T4 1.16 uIU/mL (0.32-4.0); Vitamin D 25-OH Total 51.8 ng/mL (>30)
[2023-04-24 12:58] LABS: Lipoprotein A <10 nmol/L (<75)
== END 2023-04-17 14:11 | disposition home or self-care (01) ==
LOC: HO.HMGCLDS 14:10
PROVIDERS: PCP Internal Medicine; Visit Provider Internal Medicine
DX: E53.8 Deficiency of other specified B group vitamins (principal); E55.9 Vitamin D deficiency, unspecified
CPT/HCPCS: 36415; 80053; 80061; 82306; 83695; 84443; 85025

== ENCOUNTER → 2023-05-01 14:47 | Outpatient (BNVA) | payer OTHER, SELFPAY | PROVIDERS: PCP Internal Medicine; Visit Provider Internal Medicine ==

== ENCOUNTER 2023-05-07 12:16 | Outpatient (REF) | payer OTHER, SELFPAY ==
--- NOTE | ~2023-05-07 | MM_ITS ---
EXAMINATION: MM SCREENING DIGITAL BREAST TOMOSYNTHESIS, BILATERAL CLINICAL INFORMATION: Screening. Asymptomatic. Family history breast cancer. The lifetime risk of breast cancer based on the Tyrer-Cuzick Model is 11%. COMPARISON: Mammography: 04/24/2022, 01/11/2021 02/13/2019 TECHNIQUE: Digital breast tomosynthesis is performed in both the craniocaudal and mediolateral oblique views along with computer-aided detection (CAD). Synthesized 2D images are generated from the tomosynthesis. FINDINGS: There are scattered areas of fibroglandular density (ACR BI-RADS breast composition Category b). There are no significant masses, abnormal calcifications, or other abnormalities. Parenchymal pattern is similar to prior studies. There is no developing density or architectural abnormality. The axilla and skin contours are unremarkable. No significant changes. MM/MM tomosynthesis screening BI IMPRESSION: No mammographic evidence of malignancy. ASSESSMENT: BI-RADS 1: Negative RECOMMENDATION: Routine annual mammography screening. This patient's information was entered into a reminder system with a target due date for their next mammogram.
== END 2023-05-07 12:17 | disposition home or self-care (01) ==
LOC: HO.MAMMO 12:16
PROVIDERS: PCP Internal Medicine; Visit Provider Obstetrics & Gynecology
DX: Z12.31 Encounter for screening mammogram for malignant neoplasm of breast (principal)
CPT/HCPCS: 77063; 77067

== ENCOUNTER 2023-05-15 07:43 | Outpatient (REF) | payer OTHER, SELFPAY ==
[2023-05-15 08:39] LABS: COVID-19 Test Negative (Negative); IDNOW Serial# 08D9AD1C
== END 2023-05-15 07:44 | disposition home or self-care (01) ==
LOC: HO.LAB 07:43
PROVIDERS: PCP Internal Medicine; Visit Provider Internal Medicine
DX: Z20.822 Contact with and (suspected) exposure to COVID-19 (principal)
CPT/HCPCS: 87635

== ENCOUNTER 2023-09-04 17:11 | Emergency (ER) | payer OTHER, SELFPAY ==
[2023-09-04 18:07] VITALS: BP 135/84; PULSE 71; RESP 16; TEMP 36.8; O2SAT 97; BMI 25.0
--- NOTE | 2023-09-04 18:07 | ED_ITS ---
HPI - General Adult General Chief complaint: Nausea/Vomiting/Diarrhea Stated complaint: mouth surgery yesterday, vomiting, pain Time Seen by Provider: 09/04/23 18:48 Source: patient and family Mode of arrival: ambulatory Limitations: no limitations History of Present Illness HPI narrative: 63 yo female with PMH of HLD, PFO with septal aneurysm, EVA on CPAP, OA, here with c/o having a gum transplant surgery yesterday - she is on amoxicillin TID and doing okay but today she is very nauseated and not feeling well. She has a headache as well. She is not on thinners. She cannot get rid of the nausea she has no abdominal pain it was a local procedure no anesthesia possibly related to the antibiotics but this has not happened to her before MD complaint: nausea and vomiting Onset (ago): day(s) (all day) Radiation: non-radiation Severity: moderate Relieving factors: none Exacerbating factors: eating Associated symptoms: headaches, loss of appetite, malaise and nausea/vomiting Treatments prior to arrival: other (on amoxicillin given TKR and PFO) Related Data Home Medications Medication Instructions Recorded Confirmed aspirin 81 mg tablet,delayed 81 mg PO DAILY 09/12/20 04/17/23 release turmeric 400 mg capsule 1,000 mg PO 10/03/20 04/17/23 calcium carbonate 500 mg calcium 500 mg PO DAILY 12/12/20 04/17/23 (1,250 mg) capsule (Calci-Mix) cetirizine 10 mg tablet (Zyrtec) 10 mg PO DAILY PRN 04/03/21 04/17/23 cholecalciferol (vitamin D3) 50 50 mcg PO DAILY 03/06/22 04/17/23 mcg (2,000 unit) capsule tretinoin 0.1 % topical cream 1 appl topical BEDTIME 03/21/22 04/17/23 Previous Rx's Medication Instructions Recorded meclizine 25 mg tablet 25 mg PO BID PRN dizziness #60 tabs 03/21/22 sumatriptan succinate 100 mg tablet See Rx Instructions PO .COMPLEX 04/17/23 #10 tabs pravastatin 40 mg tablet 40 mg PO DAILY #90 tabs 04/23/23 clobetasol 0.05 % topical cream 1 appl topical BID 2 weeks #45 05/07/23 grams metoclopramide HCl 10 mg tablet 10 mg PO Q6H PRN nausea and 09/04/23 (Reglan) vomiting #20 tabs ondansetron 4 mg disintegrating 4 mg PO Q8H PRN nausea and 09/04/23 tablet vomiting #20 tabs Allergies Allergy/AdvReac Type Severity Reaction Status Date / Time hydromorphone [From DILAUDID] AdvReac Unknown MAKES ME Verified 09/04/23 18:10 LOOPY seasonal allergies Allergy Unknown Unknown Uncoded 09/04/23 18:10 Review of Systems 2 Review of Systems: Constitutional : No Weight loss, No Fever, No Chills ENT/Mouth : No sore throat, No Rhinorrhea, pos gum bleeding Eyes: No Swelling, No Redness Cardiovascular : No Chest Pain, No SOB, NoEdema Respiratory : No Cough, No Sputum, No Wheezing Gastrointestinal : Positive Nausea, Positive Vomiting, no Diarrhea, no abdominal Pain, No Hematochezia, No Melena Genitourinary : No Dysuria, No Urinary Frequency, No Hematuria, No Urgency Musculoskeletal : No joint pain, No Myalgias, No Joint Swelling Skin : No Skin Lesions, No rash Neuro : No Weakness, No Numbness, No Dizziness, pos Headache Psych : No Anxiety/Panic, No Depression Heme/Lymph: No Bruising, No Lymphadenopathy Endocrine : No Polyuria, No Polydipsia All other systems reviewed and are negative. [facility] Past Medical History Attestation statement: The following information was validated with the patient. Source: old records reviewed Medical History Osteopenia (~2017) Osteoarthritis of foot, left Obstructive sleep apnea on CPAP (~2011) Mammogram normal Normal colonoscopy PFO with atrial septal aneurysm Degenerative joint disease of foot, right Vitamin B 12 deficiency Fatigue Vitamin D insufficiency Dependent edema Migraine headache Allergic rhinitis Surgical History History of foot surgery History of colonoscopy History of bladder surgery History of colon resection History of hysterectomy History of bilateral knee replacement Family History Family History Father No problems noted. Mother No problems noted. Sister Breast cancer CVD (cardiovascular disease) Paternal Grandmother Breast cancer Paternal Grandfather No problems noted. 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 Oriented X3. appears uncomfortable mild acute distress. Eyes: Pupils equal, round and reactive to light. ENT: Pharynx mildly dry MM, she is swollen and contused on chin and lower jaw, slight bleeding minimal from left lower gum line, sutures appear intact and healing. Neck: Normal inspection. Neck supple. CVS: Normal heart rate and rhythm. Pulses normal. Respiratory: No respiratory distress. Breath sounds normal. Abdomen: Soft and nontender. Skin: Skin warm and dry. Normal skin color. Normal skin turgor. Extremities: No lower extremity edema. No calf ttp Neuro: Oriented X 3. No motor deficit. No sensory deficit. Course Course Course Narrative: RME: 63yo F w/PMHx HLD, EVA, s/p oral surgery yesterday for receding gum line, had tissue from roof of mouth placed to lower gums c/o persistent TREVIÑO, nausea and emesis w/o ability to tolerate PO since noon today. Called surgeon who stopped Amoxicillin due to suspected Abx rxn. Was Rx Percocet for pain. States mouth pain improving. + lower jaw swelling/ecchymosis. + surgical site appears to be healing well Labs, IVF, IV Zofran ordered Full HPI, ROS and PE to be performed by primary ED provider. Reevaluation(s) Reevaluation #1: feels much better still slight bleeding after all the vomiting from left lower gum line will have her swish with tranexamic acid Reevaluation #2: 10 min hold with tranexamic acid did great bleeding resolved along gum line, stable for DC Medications Administered Discontinued Medications Generic Name Dose Route Start Last Admin Trade Name Ismael PRN Reason Stop Dose Admin Diphenhydramine HCl 25 mg 09/04/23 19:02 09/04/23 20:00 Diphenhydramine Hcl 50 Mg/Ml Vial IVPUSH 09/04/23 19:03 25 mg ONCE ONE Administration Sodium Chloride 1,000 mls @ 999 mls/hr 09/04/23 18:15 09/04/23 20:05 Ns IV 09/04/23 19:15 Infused .Q1H1M YIFAN Infusion Metoclopramide HCl 10 mg 09/04/23 19:02 09/04/23 20:01 Metoclopramide Hcl 10 Mg/2 Ml Vial IVPUSH 09/04/23 19:03 10 mg ONCE ONE Administration Morphine Sulfate 2 mg 09/04/23 19:02 09/04/23 20:01 Morphine Sulfate 2 Mg/Ml Cartridge IVPUSH 09/04/23 19:03 2 mg ONCE ONE Administration Protocol Ondansetron HCl 4 mg 09/04/23 18:11 09/04/23 18:49 Ondansetron Hcl 4 Mg/2 Ml Vial IVPUSH 09/04/23 18:12 4 mg ONCE ONE Administration Tranexamic Acid 500 mg 09/04/23 21:14 09/04/23 21:22 Tranexamic Acid 1,000 Mg/10 Ml Vial IRRIGATION 09/04/23 21:15 500 mg ONCE ONE Administration Medical Decision Making Medical Decision Making [facility] Narrative: 63 yo female with PMH of HLD, PFO with septal aneurysm, EVA on CPAP here with c/o nausea and vomiting currently on amoxicillin post gum transplant yesterday due to the vomiting she has mild LL gum bleeding. She is not toxic has no abdominal ttp at this time will obtain basic labs, IVF and hydrrate as well as IV reglan/benadryl and IV morphine for pain. Could be related to the procedure and meds. Differential Diagnosis Differential Diagnoses: The differential diagnosis associated with the presentation includes med reaction, migraine, n/v Admission/Observation Consideration of admission/observation: Escalation of care including admission/observation considered feels much better stable for DC Lab Data [facility] Lab Attestation statement: I reviewed the patient's lab results. 09/04/23 18:41 09/04/23 18:41 Labs: Lab Results 09/04/23 Range/Units 18:41 WBC 13.1 H (4.8-10.8) X10*3/uL RBC 5.07 (4.20-5.50) X10*6/uL Hgb 15.1 (12.0-16.0) g/dl Hct 46.2 (37.0-47.0) % MCV 91.1 (80.0-98.0) fL MCH 29.8 (27.0-33.0) pg MCHC 32.7 (31.0-35.0) g/dl RDW 12.6 (11.0-16.0) % Plt Count 349 (160-400) X10*3/uL MPV 9.4 (9.4-12.3) fL Immature Gran % (Auto) 0.5 H (0.0-0.4) % Neut % (Auto) 93.5 H (45-73) % Lymph % (Auto) 3.5 L (20-40) % [place] % (Auto) 2.2 (2-11) % Eos % (Auto) 0.1 (0-4) % Baso % (Auto) 0.2 (0-2) % Lymph # (Auto) 0.5 L (1.2-4.9) X10*3/uL [place] # (Auto) 0.3 (0.1-1.2) X10*3/uL Eos # (Auto) 0.0 (0.0-0.4) X10*3/uL Baso # (Auto) 0.0 (0.0-0.2) X10*3/uL Abs Immat Gran (auto) 0.07 H (0.00-0.03) X10*3/uL Absolute Neuts (auto) 12.2 H (2.0-8.3) x10*3/uL Absolute Nucleated RBC 0.000 (0.0-0.012) X10*3/uL Nucleated RBC % (auto) 0.0 (0.0-0.2) /100WBC Smear Tech's Comments VERIFIED Sodium 140 (135-145) mmol/L Potassium 3.6 (3.3-5.1) mmol/L Chloride 103 (96-108) mmol/L Carbon Dioxide 22 (22-29) mmol/L Anion Gap 19 (12-20) BUN 14 (9-16) mg/dL Creatinine 0.63 (0.5-1.4) mg/dL Estim Creat Clear Calc 84.4 Estimated GFR > 60 Random Glucose 124 H (60-115) mg/dL Calcium 9.7 (8.4-10.2) mg/dL Magnesium 2.1 (1.6-2.6) mg/dL Total Bilirubin 0.5 (0.0-1.0) mg/dL Direct Bilirubin 0.2 (0.0-0.5) mg/dL AST 21 (5-31) U/L ALT 23 (0-31) U/L Alkaline Phosphatase 107 (39-117) U/L Total Protein 7.5 (6.5-8.0) g/dL Albumin 4.4 (3.5-5.0) g/dL Independent Historian Clinical information obtained from an independent historian. History obtained from or confirmed by: Other (family) External Record Review External record reviewed: Office record Prescription Management I considered prescription management with: Other (nausea medications) Discharge Plan Discharge Clinical Impression: Bleeding gums Nausea & vomiting Qualifiers: Vomiting type: unspecified Qualified Code(s): R11.2 - Nausea with vomiting, unspecified Patient Disposition: Home, Self-Care Instructions: Acute Nausea and Vomiting (ED) Additional Instructions: return for worsening pain, bleeding, vomiting or any other concerns. continue to follow the plan you have with your oral surgeon. call in the AM given the bleeding you experienced after vomiting. Your platelets and hemoglobin were normal today no anemia. Prescriptions: New ondansetron 4 mg tablet,disintegrating 4 mg PO Q8H PRN (Reason: nausea and vomiting) Qty: 20 0RF metoclopramide HCl [Reglan] 10 mg tablet 10 mg PO Q6H PRN (Reason: nausea and vomiting) Qty: 20 0RF No Action pravastatin 40 mg tablet 40 mg PO DAILY Qty: 90 3RF turmeric 400 mg Capsule 1,000 mg PO aspirin 81 mg tablet,delayed release (DR/EC) 81 mg PO DAILY tretinoin 0.1 % cream 1 appl topical BEDTIME meclizine 25 mg tablet 25 mg PO BID PRN (Reason: dizziness) Qty: 60 0RF sumatriptan succinate 100 mg tablet See Rx Instructions PO .COMPLEX Qty: 10 5RF Rx Instructions: take 1 tab at onset of headache; if no relief, may repeat 1 tab after at least 2 hrs; max = 2 tabs/24 hrs PO Calci-Mix 500 mg calcium (1,250 mg) capsule 500 mg PO DAILY cetirizine [Zyrtec] 10 mg tablet 10 mg PO DAILY PRN cholecalciferol (vitamin D3) 50 mcg (2,000 unit) capsule 50 mcg PO DAILY clobetasol 0.05 % cream 1 appl topical BID 14 Days Qty: 45 1RF Rx Instructions: Then maintenance therapy for 2-3 times per week for 3 more weeks Stand Alone Forms: Work/School Release Interventions: ED Discharge Assessment Last Done: 09/04/23 21:45 Discharge Date/Time: 09/04/23 21:45
[2023-09-04] MEDS: ondansetron HCL 4 MG/2 ML VIAL IVPUSH (18:49)
[2023-09-04] MEDS: 0.9 % Sodium Chloride 1,000 ML 999 ML IV (18:49)
[2023-09-04 19:11] LABS: Basophils Percent Auto 0.2 % (0-2); Eosinophils Percent Auto 0.1 % (0-4); Hematocrit 46.2 % (37.0-47.0); Hemoglobin 15.1 g/dl (12.0-16.0); Imm Gran Abs Auto 0.07 X10*3/uL (0.00-0.03); Imm Gran Pct Auto 0.5 % (0.0-0.4); Lymphocytes Absolute Auto 0.5 X10*3/uL (1.2-4.9); Lymphocytes Percent Auto 3.5 % (20-40); MANUAL DIFF FLAG SCAN; Mean Corpuscular HGB Conc 32.7 g/dl (31.0-35.0); Mean Corpuscular Hemoglobin 29.8 pg (27.0-33.0); Mean Corpuscular Volume 91.1 fL (80.0-98.0); Mean Platelet Volume 9.4 fL (9.4-12.3); Monocytes Absolute Auto 0.3 X10*3/uL (0.1-1.2); Monocytes Percent Auto 2.2 % (2-11); Neutrophils Absolute Auto 12.2 x10*3/uL (2.0-8.3); Neutrophils Percent Auto 93.5 % (45-73); Platelet Count 349 X10*3/uL (160-400); Red Blood Count 5.07 X10*6/uL (4.20-5.50); Red Cell Distribution Width 12.6 % (11.0-16.0); SCAN SMEAR FLAG 1; White Blood Count 13.1 X10*3/uL (4.8-10.8)
[2023-09-04 19:28] LABS: SLIDE REVIEW VERIFIED
[2023-09-04 19:29] LABS: Alanine Aminotransferase 23 U/L (0-31); Albumin Level 4.4 g/dL (3.5-5.0); Alkaline Phosphatase 107 U/L (39-117); Anion Gap 19 (12-20); Aspartate Amino Transferase 21 U/L (5-31); Bilirubin Direct 0.2 mg/dL (0.0-0.5); Bilirubin Total 0.5 mg/dL (0.0-1.0); Blood Urea Nitrogen 14 mg/dL (9-16); Calcium 9.7 mg/dL (8.4-10.2); Carbon Dioxide 22 mmol/L (22-29); Chloride 103 mmol/L (96-108); Creatinine Clr Calc Pharmacy 84.4; Estimated Glomerular Filt Rate > 60; Glucose Random 124 mg/dL (60-115); Magnesium 2.1 mg/dL (1.6-2.6); Potassium 3.6 mmol/L (3.3-5.1); Sodium 140 mmol/L (135-145); Total Protein 7.5 g/dL (6.5-8.0)
[2023-09-04] MEDS: diphenhydrAMINE HCL 50 MG/ML VIAL 25 MG IVPUSH (20:00)
[2023-09-04 20:01] VITALS: RESP 16
[2023-09-04] MEDS: Metoclopramide HCl 10 MG/2 ML VIAL IVPUSH (20:01)
[2023-09-04] MEDS: Morphine Sulfate 2 MG/ML CARTRIDGE IVPUSH (20:01)
[2023-09-04 20:45] VITALS: BP 117/68; PULSE 82; RESP 20; TEMP 36.3; O2SAT 95
[2023-09-04] MEDS: Tranexamic Acid 1,000 MG/10 ML VIAL 500 MG IRRIGATION (21:22)
== END 2023-09-04 21:45 | disposition home or self-care (01) ==
PROVIDERS: Physician Assistant; Emergency Provider Emergency Medicine; PCP Internal Medicine
DX: R11.2 Nausea with vomiting, unspecified (principal); R19.7 Diarrhea, unspecified; R51.9 Headache, unspecified; Z87.891 Personal history of nicotine dependence; Z79.899 Other long term (current) drug therapy
CPT/HCPCS: 36415; 80048; 80076; 83735; 85025; 96361; 96374; 96375; 99284; J1200; J2270; J2405; J2765

== ENCOUNTER 2023-09-11 02:18 | Emergency (ER) | payer OTHER, SELFPAY ==
[2023-09-11 02:21] VITALS: BP 122/72; PULSE 83; RESP 18; TEMP 36.8; O2SAT 99; BMI 25.4
[2023-09-11 03:45] LABS: Anion Gap 15 (12-20); Blood Urea Nitrogen 19 mg/dL (9-16); Calcium 9.8 mg/dL (8.4-10.2); Carbon Dioxide 25 mmol/L (22-29); Chloride 106 mmol/L (96-108); Creatinine Clr Calc Pharmacy 83.3; Estimated Glomerular Filt Rate > 60; Glucose Random 116 mg/dL (60-115); Potassium 4.1 mmol/L (3.3-5.1); Sodium 142 mmol/L (135-145)
--- NOTE | 2023-09-11 04:53 | ED.GENADULT ---
HPI - General Adult General Chief complaint: General Medical Stated complaint: Bleeding from mouth/Procedure last week Time Seen by Provider: 09/11/23 03:00 Source: patient and family Mode of arrival: ambulatory Limitations: no limitations History of Present Illness HPI narrative: A 63-year-old female came in for evaluation of a gum bleeding. Patient had a recent gum surgery last week been having bleeding from the surgery sites. Patient has no history of AC therapy, no bleeding disorder. Patient stated usually if she apply pressure she is able to stop the bleeding. No dizziness, no CP, no SOB, no headache. Related Data Home Medications Medication Instructions Recorded Confirmed aspirin 81 mg tablet,delayed 81 mg PO DAILY 09/12/20 04/17/23 release turmeric 400 mg capsule 1,000 mg PO 10/03/20 04/17/23 calcium carbonate 500 mg calcium 500 mg PO DAILY 12/12/20 04/17/23 (1,250 mg) capsule (Calci-Mix) cetirizine 10 mg tablet (Zyrtec) 10 mg PO DAILY PRN 04/03/21 04/17/23 cholecalciferol (vitamin D3) 50 50 mcg PO DAILY 03/06/22 04/17/23 mcg (2,000 unit) capsule tretinoin 0.1 % topical cream 1 appl topical BEDTIME 03/21/22 04/17/23 Previous Rx's Medication Instructions Recorded meclizine 25 mg tablet 25 mg PO BID PRN dizziness #60 tabs 03/21/22 sumatriptan succinate 100 mg tablet See Rx Instructions PO .COMPLEX 04/17/23 #10 tabs pravastatin 40 mg tablet 40 mg PO DAILY #90 tabs 04/23/23 clobetasol 0.05 % topical cream 1 appl topical BID 2 weeks #45 05/07/23 grams metoclopramide HCl 10 mg tablet 10 mg PO Q6H PRN nausea and 09/04/23 (Reglan) vomiting #20 tabs ondansetron 4 mg disintegrating 4 mg PO Q8H PRN nausea and 09/04/23 tablet vomiting #20 tabs Allergies Allergy/AdvReac Type Severity Reaction Status Date / Time hydromorphone [From DILAUDID] AdvReac Unknown MAKES ME Verified 09/04/23 18:10 LOOPY seasonal allergies Allergy Unknown Unknown Uncoded 09/04/23 18:10 Review of Systems Review of Systems: All other systems are reviewed and are negative Constitutional: Reports as per HPI and Reports no additional constitutional complaints Eyes: Reports as per HPI and Reports no additional eye complaints Reports system reviewed and no additional complaints, except as documented Cardiovascular: Reports as per HPI and Reports no additional cardiovascular complaints Respiratory: Reports as per HPI and Reports no additional respiratory complaints Gastrointestinal: Reports as per HPI and Reports no additional gastrointestinal complaints Genitourinary: Reports no additional female genitourinary complaints Musculoskeletal: Reports no additional musculoskeletal complaints Skin/Breast: Reports system reviewed and no additional complaints, except as docu Psychiatric: Reports no additional psychiatric complaints Endocrine: Reports no additional endocrine complaints Hematologic/Lymphatic: Reports no additional hematologic/lymphatic complaints Allergic/Immunologic: Reports no additional allergic/immunologic complaints Reports system reviewed and no additional complaints, except as documented and Reports Abnormal speech present [facility] Past Medical History Medical History Osteopenia (~2017) Osteoarthritis of foot, left Obstructive sleep apnea on CPAP (~2011) Mammogram normal Normal colonoscopy PFO with atrial septal aneurysm Degenerative joint disease of foot, right Vitamin B 12 deficiency Fatigue Vitamin D insufficiency Dependent edema Migraine headache Allergic rhinitis Surgical History History of foot surgery History of colonoscopy History of bladder surgery History of colon resection History of hysterectomy History of bilateral knee replacement Family History Family History Father No problems noted. Mother No problems noted. Sister Breast cancer CVD (cardiovascular disease) Paternal Grandmother Breast cancer Paternal Grandfather No problems noted. 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 Blood pressure elevated. Heart rate normal. Respiratory rate normal. Temperature normal. Oxygen saturation normal. Appearance: Alert. Oriented X3. No acute distress. Head: Normal external exam. Normocephalic. Atraumatic. No Mane signs noted. No raccoon eyes noted Mouth exam: No active bleeding currently from the surgery site on the gum upper and lower. Eyes: PERRLA. EOMI. Conjunctiva and sclera normal. Eyelids normal. ENT: TM's Normal. Pharynx normal. Uvula midline. Moist mucous membranes. No trismus noted. No drooling noted. No muffled voice noted. Neck: Normal inspection. Neck supple. FROM. No adenopathy. Thyroid Normal. No meningeal signs. No neck mass noted. CVS: Normal heart rate and rhythm. Heart sound normal. No murmurs noted. Pulses normal throughout. Respiratory: No respiratory distress. Painless inspiration. Breath sounds normal. No wheezes/rales/rhonchi noted. Chest nontender. No accessory muscle usage noted or decreased air movement noted. Abdomen: Soft and nontender. Bowel sounds normal in all 4 quadrants. No distention noted. No organomegaly noted. No visible injury noted. Back: No CVA tenderness. Full range of motion noted. Skin: Skin warm and dry. Normal skin color. Normal skin turgor. No rashes/lesions/lacerations noted. Extremities: No lower extremity edema. Extremities exhibit normal range of motion. Extremities nontender. Neuro: Oriented X 3. Cranial nerve exam: II-XII are grossly intact No motor deficit. No sensory deficit. Reflexes normal. Course Course Course Narrative: A 63-year-old female s/p gum graft plastic surgery came in for bleeding from the surgery site. Bleeding stopped after applying Surgicel so on the bleeding side and pressure, patient now was no bleeding, stable H&H, vital signs stable, no apparent coagulopathy. Patient was instructed to follow up with her surgeon today. Medications Administered Discontinued Medications Generic Name Dose Route Start Last Admin Trade Name Freq PRN Reason Stop Dose Admin Sodium Chloride 1,000 mls @ 999 mls/hr 09/11/23 03:00 09/11/23 03:27 Ns IV 09/11/23 04:00 999 mls/hr .Q1H1M ONE Administration Medical Decision Making Differential Diagnosis Differential Diagnoses: The differential diagnosis associated with the presentation includes (Severe active bleeding, severe anemia, coagulopathy, electrolyte abnormality, vital sign abnormality.) Admission/Observation Consideration of admission/observation: Escalation of care including admission/observation considered Lab Data MDM Lab Attestation statement: I reviewed the patient's lab results. 09/11/23 03:19 09/11/23 03:19 Labs: Lab Results 09/11/23 Range/Units 03:19 WBC 7.8 (4.8-10.8) X10*3/uL RBC 4.80 (4.20-5.50) X10*6/uL Hgb 14.4 (12.0-16.0) g/dl Hct 43.6 (37.0-47.0) % MCV 90.8 (80.0-98.0) fL MCH 30.0 (27.0-33.0) pg MCHC 33.0 (31.0-35.0) g/dl RDW 12.4 (11.0-16.0) % Plt Count 369 (160-400) X10*3/uL MPV 9.1 L (9.4-12.3) fL Immature Gran % (Auto) 0.5 H (0.0-0.4) % Neut % (Auto) 72.8 (45-73) % Lymph % (Auto) 15.2 L (20-40) % [place] % (Auto) 8.1 (2-11) % Eos % (Auto) 3.0 (0-4) % Baso % (Auto) 0.4 (0-2) % Lymph # (Auto) 1.2 (1.2-4.9) X10*3/uL [place] # (Auto) 0.6 (0.1-1.2) X10*3/uL Eos # (Auto) 0.2 (0.0-0.4) X10*3/uL Baso # (Auto) 0.0 (0.0-0.2) X10*3/uL Abs Immat Gran (auto) 0.04 H (0.00-0.03) X10*3/uL Absolute Neuts (auto) 5.7 (2.0-8.3) x10*3/uL Absolute Nucleated RBC 0.000 (0.0-0.012) X10*3/uL Nucleated RBC % (auto) 0.0 (0.0-0.2) /100WBC PT 11.5 (11.1-13.3) SEC INR 0.9 (0.9-1.1) APTT 33.8 (26.0-36.4) SEC Sodium 142 (135-145) mmol/L Potassium 4.1 (3.3-5.1) mmol/L Chloride 106 (96-108) mmol/L Carbon Dioxide 25 (22-29) mmol/L Anion Gap 15 (12-20) BUN 19 H (9-16) mg/dL Creatinine 0.69 (0.5-1.4) mg/dL Estim Creat Clear Calc 83.3 Estimated GFR > 60 Random Glucose 116 H (60-115) mg/dL Calcium 9.8 (8.4-10.2) mg/dL Discharge Plan Discharge Clinical Impression: Bleeding gums Patient Disposition: Home, Self-Care Additional Instructions: Follow-up with your surgeon today, if active bleeding apply pressure directly to the bleeding area if you can stop it seek immediate medical attention. Seek medical attention if having dizziness, chest pain or shortness of breath. Prescriptions: No Action pravastatin 40 mg tablet 40 mg PO DAILY Qty: 90 3RF turmeric 400 mg Capsule 1,000 mg PO ondansetron 4 mg tablet,disintegrating 4 mg PO Q8H PRN (Reason: nausea and vomiting) Qty: 20 0RF metoclopramide HCl [Reglan] 10 mg tablet 10 mg PO Q6H PRN (Reason: nausea and vomiting) Qty: 20 0RF aspirin 81 mg tablet,delayed release (DR/EC) 81 mg PO DAILY tretinoin 0.1 % cream 1 appl topical BEDTIME meclizine 25 mg tablet 25 mg PO BID PRN (Reason: dizziness) Qty: 60 0RF sumatriptan succinate 100 mg tablet See Rx Instructions PO .COMPLEX Qty: 10 5RF Rx Instructions: take 1 tab at onset of headache; if no relief, may repeat 1 tab after at least 2 hrs; max = 2 tabs/24 hrs PO Calci-Mix 500 mg calcium (1,250 mg) capsule 500 mg PO DAILY cetirizine [Zyrtec] 10 mg tablet 10 mg PO DAILY PRN cholecalciferol (vitamin D3) 50 mcg (2,000 unit) capsule 50 mcg PO DAILY clobetasol 0.05 % cream 1 appl topical BID 14 Days Qty: 45 1RF Rx Instructions: Then maintenance therapy for 2-3 times per week for 3 more weeks
== END 2023-09-11 06:30 | disposition home or self-care (01) ==
PROVIDERS: Emergency Provider Emergency Medicine; PCP Internal Medicine
DX: K91.840 Postprocedural hemorrhage of a digestive system organ or structure following a digestive system procedure (principal); Z79.899 Other long term (current) drug therapy; Z87.891 Personal history of nicotine dependence
CPT/HCPCS: 36415; 80048; 85025; 85610; 85730; 96360; 96361; 99284

== ENCOUNTER 2024-02-06 08:39 | Outpatient (AMB) | payer OTHER, SELFPAY ==
[2024-02-06 08:56] VITALS: BMI 25.3
--- NOTE | 2024-02-06 08:56 | MHC.OFFVIS ---
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 The patient states that her knees bother her most when she is hiking or riding her bicycle. She did fall off of her treadmill on 01/15/2024. At that time she had increased discomfort along the medial aspect of her left knee. She states that over the last few weeks her discomfort has returned to her baseline. She denies any fevers or chills. She has taken Tylenol and ibuprofen which gave her mild relief. Allergies hydromorphone [From DILAUDID] Adverse Reaction (Unknown, Verified 02/06/24 09:00) MAKES ME LOOPY seasonal allergies Allergy (Unknown, Uncoded 09/04/23 18:10) Unknown Medication List - Last Reconciled 02/06/24 by Alexis Martins MD aspirin 81 mg PO DAILY calcium carbonate (Calci-Mix) 500 mg PO DAILY cetirizine (Zyrtec) 10 mg PO DAILY PRN cholecalciferol (vitamin D3) 50 mcg PO DAILY clobetasol 0.05% 1 appl topical BID 2 weeks magnesium hydroxide 400 mg PO BEDTIME PRN meclizine 25 mg PO BID PRN metoclopramide HCl (Reglan) 10 mg PO Q6H PRN ondansetron 4 mg PO Q8H PRN pravastatin 40 mg PO DAILY sumatriptan succinate take 1 tab at onset of headache; if no relief, may repeat 1 tab after at least 2 hrs; max = 2 tabs/24 hrs PO tretinoin 0.1% 1 appl topical BEDTIME turmeric 1,000 mg PO PFSH Medical History Osteopenia (~2016) Osteoarthritis of foot, left Obstructive sleep apnea on CPAP (~2011) Mammogram normal Normal colonoscopy PFO with atrial 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 Mother No problems noted. Sister Breast cancer CVD (cardiovascular disease) Paternal Grandmother Breast cancer Paternal Grandfather No problems noted. 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[place] , 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 Cognitive needs: No Hearing needs: No Vision needs: Yes Female Reproductive History Menstrual Age of Menarche: 11 Physical Exam Vital Signs: BMI result Body Mass Index 25.3 Const Other: Well-nourished well-developed very friendly female awake alert and oriented x3 in no acute distress Extrem Other: Bilateral lower extremity examination shows good capillary refill, no skin lesions noted, normal sensation light touch Bilateral knee examination shows that the surgical incisions are well healed, no erythema, full active extension and flexion to 120 degrees, her patellae track well, mild tenderness over her left medial collateral ligament Results Reviewed Results Reviewed: X-rays of the patient's left knee show a total knee arthroplasty in good position with no signs of loosening, no acute bony abnormalities Assessment & Plan Assessment & Plan (1) Bilateral knee pain: Code(s): M25.561 - Pain in right knee; M25.562 - Pain in left knee Plan Ms. Lezama presents with chronic activity-related discomfort in both of her knees after undergoing bilateral total knee replacement surgery in [place] in 2010. At this point the patient does not appear to have anything mechanically wrong with her knee replacements. The patient may be a candidate for nerve block injections to help with her discomfort. Thus, I will arrange for her to have an evaluation by Dr. Cool from pain management here at [facility]. The patient will contact me prior to her follow-up appointment in 6 months should her symptoms worsen in any way. Feel free to call me at any time should questions regarding her orthopedic management arise. I spent 22 minutes in reviewing the patient's records and imaging studies, seeing the patient and documenting in the medical record. Orders: Orders XR knee LT 3V Today M25.562 - Pain in left knee Referrals Pain Management Referral M25.561 - Pain in right knee, M25.562 - Pain in left knee Coding Level of Care Code New Pt Level 2 (31943) Diagnoses Bilateral knee pain M25.561; M25.562
== END 2024-02-06 09:24 | disposition home or self-care (01) ==
PROVIDERS: PCP Internal Medicine; Visit Provider Orthopaedic Surgery
DX: M25.561 Pain in right knee (principal); M25.562 Pain in left knee
CPT/HCPCS: 99202

== ENCOUNTER 2024-02-06 09:37 | Outpatient (REF) | payer OTHER, SELFPAY ==
--- NOTE | ~2024-02-06 | XR_ITS ---
EXAMINATION: XR KNEE, LEFT CLINICAL INFORMATION: Left knee pain. COMPARISON: None available. TECHNIQUE: Three views of the left knee. FINDINGS: Status post left knee arthroplasty. No evidence of hardware fracture or loosening. No bony fracture or significant joint effusion appreciated. Alignment is anatomic. No abnormal soft tissue calcification identified. XR/XR knee LT 3V IMPRESSION: Status post left knee arthroplasty. No acute finding.
== END 2024-02-06 09:38 | disposition home or self-care (01) ==
LOC: HO.HOSX 09:37
PROVIDERS: Visit Provider Orthopaedic Surgery
DX: M25.562 Pain in left knee (principal)
CPT/HCPCS: 73562

== ENCOUNTER 2024-02-20 14:47 | Outpatient (AMB) | payer OTHER, SELFPAY ==
[2024-02-20 15:13] VITALS: BP 100/60; PULSE 69; BMI 24.5
--- NOTE | 2024-02-20 15:13 | MHC.OFFVIS ---
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 Allergies hydromorphone [From DILAUDID] Adverse Reaction (Unknown, Verified 02/20/24 15:15) MAKES ME LOOPY seasonal allergies Allergy (Unknown, Uncoded 02/20/24 15:15) Unknown Medication List - Last Reconciled 02/20/24 by Maria Ines Alva NP-C aspirin 81 mg PO DAILY calcium carbonate (Calci-Mix) 500 mg PO DAILY cetirizine (Zyrtec) 10 mg PO DAILY PRN cholecalciferol (vitamin D3) 50 mcg PO DAILY clobetasol 0.05% 1 appl topical BID 2 weeks magnesium hydroxide 400 mg PO BEDTIME PRN meclizine 25 mg PO BID PRN ondansetron 4 mg PO Q8H PRN pravastatin 40 mg PO DAILY sumatriptan succinate take 1 tab at onset of headache; if no relief, may repeat 1 tab after at least 2 hrs; max = 2 tabs/24 hrs PO tretinoin 0.1% 1 appl topical BEDTIME turmeric 1,000 mg PO HPI 1 yr f/up HPI Details Andra is a 62-year-old female with past medical history of PFO with septal aneurysm, obstructive sleep apnea with CPAP use, dependent leg edema who presents for follow-up. Today she reports that she has been been doing very well since her last visit. She is not noticing the shortness of breath with activity. No neurological changes or symptoms. She has no chest discomfort, palpitations, lightheadedness, presyncope, syncope, falls. No PND, orthopnea. She continues to have chronic intermittent lower leg edema. She is requesting a script for p.r.n. Lasix to use when it gets very bad. She is hoping to retire in June 2024. 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 Mother No problems noted. Sister Breast cancer CVD (cardiovascular disease) Paternal Grandmother Breast cancer Paternal Grandfather No problems noted. 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 Cognitive needs: No Hearing needs: No Vision needs: Yes Female Reproductive History Menstrual Age of Menarche: 11 Review of Systems Const All systems reviewed & are unremarkable except as noted in HPI and below ENT Denies dizziness Card Denies chest pain, Denies chest pain at rest, Denies chest pain with activity, Denies rapid heart rate, Denies pedal edema, Denies edema, Reports leg edema, Denies lightheadedness, Denies palpitations, Denies dyspnea, Denies dyspnea on exertion and Denies orthopnea Resp Denies cough, Denies dyspnea and Denies dyspnea on exertion GI Denies hematochezia and Denies change in stool character Musc Denies abnormal gait, Denies limited range of motion, Denies muscle cramps, Denies muscle weakness, Denies numbness, Denies radiating pain into limb, Denies stiffness and Denies tingling Neuro Denies abnormal gait, Denies dizziness, Denies numbness and Denies tingling Endo Denies palpitations Physical Exam Vital Signs: Last Vital Signs Pulse 69 02/20/24 15:13 BP 100/60 02/20/24 15:13 BMI result Body Mass Index 24.5 Const General: cooperative, healthy appearing, comfortable and no acute distress Orientation/consciousness: patient oriented x3 Neck Neck: Yes normal visual inspection and Yes no JVD Resp Effort & Inspection: normal respiratory effort Auscultation: clear to auscultation bilaterally, no crackles, no rales, no rhonchi and no wheezes Cardio Jugular venous distension: no JVD Rate: regular rate Rhythm: regular rhythm Heart sounds: S1 normal heart sound present, S2 normal heart sound present, no murmurs and no rubs Neuro General: patient oriented x3 Extrem Other: nonpitting edema of ankles General: Yes normal to inspection and No calf tenderness Psych Appearance: grossly normal Mental Status: mental status grossly normal Speech and movement: Normal speech and movement present Office Procedures EKG Details: Today, read by me, normal sinus rhythm, rate 69, QTc 420ms [id number], Complete Assessment & Plan Assessment & Plan (1) PFO with atrial septal aneurysm: Comment: (Incidental finding on echo in 2016 - known to Dr. Villagomez) Code(s): Q21.1 - Atrial septal defect Plan: History of echocardiogram in 2016 showing PFO and atrial septal aneurysm. She has not had any known neurological events. She has been on aspirin 81 mg daily and tolerates it without symptoms. Echocardiogram done 02/26/2023 shows EF 66%, mildly calcific aortic valve, mild MR, mild TR, septal aneurysm noted. Results reviewed with her in detail. Continue current management. Cardiology follow-up 1 year, sooner if needed. (2) Leg edema: Code(s): R60.0 - Localized edema Plan: Chronic issues with swelling of her ankles when she is up on her feet a lot. This swelling typically goes away with leg elevation and through the night. She has had p.r.n. Lasix to use in the past when it gets very bad. This prescription ran out and she has requesting a refill which I did send. Recommended use of compression stockings. Likely has some venous insufficiency. Plan Time spent on chart review, documentation, interview and assessment Medications: New furosemide (Lasix) 20 mg PO DAILY PRN 30 tabs 1RF edema Coding Level of Care Code Est Pt Level 3 (03816) Diagnoses PFO with atrial septal aneurysm Q21.1 Leg edema R60.0 CPT Codes EKG - CPT: [id number]-[id number], Complete ([id number]) Time Spent (min) 24
== END 2024-02-20 15:40 | disposition home or self-care (01) ==
PROVIDERS: PCP Internal Medicine; Visit Provider Nurse Practitioner Family
DX: Q21.10 Atrial septal defect, unspecified (principal); R60.0 Localized edema
CPT/HCPCS: 93010; 99213

== ENCOUNTER → 2024-02-20 14:47 | Outpatient (BNVA) | payer OTHER, SELFPAY | PROVIDERS: PCP Internal Medicine; Visit Provider Nurse Practitioner Family | DX: R60.0 Localized edema (principal); Q21.12 Patent foramen ovale; Z79.82 Long term (current) use of aspirin | CPT/HCPCS: 93005 ==

== ENCOUNTER 2024-03-04 09:49 | Outpatient (AMB) | payer OTHER, SELFPAY ==
[2024-03-04 09:57] VITALS: BP 122/74; PULSE 77; O2SAT 96; BMI 25.2
--- NOTE | 2024-03-04 09:57 | MHC.OFFWIV ---
Intake Vital Signs 03/04/24 09:57 Height 5 ft 6 in Weight 156 lb BMI 25.2 BP 122/74 Blood Pressure Location Rt brachial Position Sitting Pulse 77 Pulse Source Pulse Oximeter Pulse Oximetry (%) 96 Oxygen Delivery Method Room Air Intake Visit Reasons: EP allergies (bj) Patient Tobacco Use Status: Former Tobacco user Quit Date: 30 yr ago Allergies hydromorphone [From DILAUDID] Adverse Reaction (Unknown, Verified 03/04/24 09:59) MAKES ME LOOPY seasonal allergies Allergy (Unknown, Uncoded 02/20/24 15:15) Unknown Medication List - Last Reconciled 03/04/24 by Toro Caraballo MD aspirin 81 mg PO DAILY calcium carbonate (Calci-Mix) 500 mg PO DAILY cetirizine (Zyrtec) 10 mg PO DAILY PRN cholecalciferol (vitamin D3) 50 mcg PO DAILY clobetasol 0.05% 1 appl topical BID 2 weeks furosemide (Lasix) 20 mg PO DAILY PRN magnesium hydroxide 400 mg PO BEDTIME PRN meclizine 25 mg PO BID PRN ondansetron 4 mg PO Q8H PRN pravastatin 40 mg PO DAILY sumatriptan succinate take 1 tab at onset of headache; if no relief, may repeat 1 tab after at least 2 hrs; max = 2 tabs/24 hrs PO tretinoin 0.1% 1 appl topical BEDTIME turmeric 1,000 mg PO Do you need a note to return to daycare/school/sports/work: No HPI EP allergies (bj) HPI Details Patient is 63-year-old female came in today to be treated for allergies Patient says that it gets worse in spring season, she is constantly having postnasal drip Have to clear her throat, dry irritated cough There is no fever chills no shortness a breath no chest congestion and she does not feel sick He is taking Zyrtec every day and then she takes Benadryl for acute itching in the eyes and watering She has an appointment with incinerator plant laborer coming up in May Her lungs are clear, no infection in the ears on examination I am adding montelukast 10 mg daily and Flonase nasal spray, if she benefit from these medication she can reach out to her PCP for refills or re-evaluation [facility] Medical History Osteopenia (~2017) Osteoarthritis of foot, left Obstructive sleep apnea on CPAP (~2011) Mammogram normal Normal colonoscopy PFO with atrial 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 Mother No problems noted. Sister Breast cancer CVD (cardiovascular disease) Paternal Grandmother Breast cancer Paternal Grandfather No problems noted. 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 Cognitive needs: No Hearing needs: No Vision needs: Yes Female Reproductive History Menstrual Age of Menarche: 11 Review of Systems Const Denies chills and Denies fever(s) ENT Denies epistaxis Card Denies chest pain Resp Denies chest congestion and Denies hemoptysis GI Denies diarrhea and Denies nausea Skin/Breast Denies rash Neuro Reports no additional complaints Psych Reports no additional complaints Endo Reports no additional complaints Physical Exam Vital Signs: Last Vital Signs Pulse 77 03/04/24 09:57 BP 122/74 03/04/24 09:57 Pulse Ox 96 03/04/24 09:57 Oxygen Delivery Method Room Air 03/04/24 09:57 BMI result Body Mass Index 25.2 Const General: cooperative, comfortable and no acute distress Orientation/consciousness: patient oriented x3 HEENT Head: Yes normocephalic Eyes General: appearance normal, both eyes and all related structures Neck Other: Supple Neck: Yes supple Resp Effort & Inspection: normal respiratory effort, no cough and no stridor Cardio Rhythm: regular rhythm Heart sounds: S1 normal heart sound present and S2 normal heart sound present Skin General skin exam: turgor normal Neuro Other: Motor sensory intact General: patient oriented x3, tone normal and moves all extremities Psych Other: Normal effect, speech clear Assessment & Plan Assessment & Plan (1) Postnasal drip: Code(s): R09.82 - Postnasal drip (2) Dry cough: Code(s): R05.8 - Other specified cough (3) Itchy eyes: Code(s): H57.9 - Unspecified disorder of eye and adnexa (4) Vertigo: Code(s): R42 - Dizziness and giddiness Plan Patient is 63-year-old female came in today to be treated for allergies Patient says that it gets worse in spring season, she is constantly having postnasal drip Have to clear her throat, dry irritated cough There is no fever chills no shortness a breath no chest congestion and she does not feel sick He is taking Zyrtec every day and then she takes Benadryl for acute itching in the eyes and watering She has an appointment with incinerator plant laborer coming up in May Patient suffers from vertigo, when her allergies are worse vertigo is worse for that she is taking meclizine Her lungs are clear, no infection in the ears on examination I am adding montelukast 10 mg daily and Flonase nasal spray, if she benefit from these medication she can reach out to her PCP for refills or re-evaluation Medications: New montelukast 10 mg PO DAILY 30 tabs 0RF fluticasone propionate 50 mcg/actuation (Flonase Allergy Relief) administer into each nostril 1 spray intranasal DAILY 16 grams 0RF Coding Level of Care Code Est Pt Level 3 (19393) Diagnoses Postnasal drip R09.82 Dry cough R05.8 Itchy eyes H57.9 Vertigo R42
== END 2024-03-04 11:50 | disposition home or self-care (01) ==
PROVIDERS: PCP Internal Medicine; Visit Provider Internal Medicine
DX: R09.82 Postnasal drip (principal); R05.8 Other specified cough; H57.9 Unspecified disorder of eye and adnexa; R42 Dizziness and giddiness
CPT/HCPCS: 99213

== ENCOUNTER 2024-03-13 10:36 | Outpatient (AMB) | payer OTHER, SELFPAY ==
--- NOTE | 2024-03-13 10:50 | MHC.OFFVIS ---
Vital Signs 03/13/24 10:51 Height 5 ft 6 in Weight 154 lb BMI 24.9 BP 125/74 Blood Pressure Location Lt brachial Position Sitting Respiration 14 Pulse 67 Pulse Source Pulse Oximeter Intake Visit Reasons: Bilateral knee discomfort Allergies hydromorphone [From DILAUDID] Adverse Reaction (Unknown, Verified 03/13/24 10:53) MAKES ME LOOPY seasonal allergies Allergy (Unknown, Uncoded 03/13/24 10:53) Unknown Medication List - Last Reconciled 03/13/24 by Maya Schuler LPN aspirin 81 mg PO DAILY calcium carbonate (Calci-Mix) 500 mg PO DAILY cetirizine (Zyrtec) 10 mg PO DAILY PRN cholecalciferol (vitamin D3) 50 mcg PO DAILY clobetasol 0.05% 1 appl topical BID 2 weeks fluticasone propionate 50 mcg/actuation (Flonase Allergy Relief) 1 spray intranasal DAILY furosemide (Lasix) 20 mg PO DAILY PRN magnesium hydroxide 400 mg PO BEDTIME PRN meclizine 25 mg PO BID PRN montelukast 10 mg PO DAILY pravastatin 40 mg PO DAILY sumatriptan succinate take 1 tab at onset of headache; if no relief, may repeat 1 tab after at least 2 hrs; max = 2 tabs/24 hrs PO tretinoin 0.1% 1 appl topical BEDTIME turmeric 1,000 mg PO HPI HPI Bilateral knee discomfort: Details: 63-year-old female who presents today to the office for an evaluation of bilateral knee discomfort. She was referred to us by Dr. Back for bilateral knee pain. She had bilateral knee replacements in 2010 in [place]. She underwent a workup to assess for mechanical failure, and this was negative, so she was referred to us for pain management. She describes pain over the last few months that is interfering with their daily activities. It is described as an aching, stabbing sensation, with the left side worse than the right side. She did fall off her treadmill on 01/15/2024. It is worse at midday and less severe in the morning. Weather changes in movements make it worse. She states that her knee pain worsens when she is hiking or riding her bicycle. She continues to work full-time. She is unable to carry any weight when climbing stairs. She has taken Tylenol and ibuprofen, which gave her mild relief. She has a history of osteopenia and severe arthritis. She is currently on calcium and vitamin D supplements. She will retire in June 2024. She is thinking of joining the gym after [employer]. She likes to ride her bike three times a week. She also goes on the walk with her friends. 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 Mother No problems noted. Sister Breast cancer CVD (cardiovascular disease) Paternal Grandmother Breast cancer Paternal Grandfather No problems noted. 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 Alert and oriented. Mood and affect appropriate. Follows and participates in conversation appropriately. Respiratory effort is unlabored. Able to transition from sit to stand unassisted. Ambulates with bilaterally normal heel strike and toe off. Medial knee tenderness to palpation. Results Reviewed Results Reviewed: 02/06/24: XR KNEE, LEFT FINDINGS: Status post left knee arthroplasty. No evidence of hardware fracture or loosening. No bony fracture or significant joint effusion appreciated. Alignment is anatomic. No abnormal soft tissue calcification identified. IMPRESSION: Status post left knee arthroplasty. No acute finding. Assessment & Plan Assessment & Plan (1) Left knee pain: Code(s): M25.562 - Pain in left knee Category: Medical Plan Discussed nerve block vs. temporary nerve stimulator as a possible treatment option. We will schedule her for a left temporary saphenous nerve stimulator placement for post TKA chronic knee pain. Discussed the risks and benefits of the procedure with the patient in detail. All questions were answered. The patient is on board with the plan. Justification for interventional therapy: ? Patient with average pain > 6/10 ? Patient has exhausted conservative therapy ? Patient unable to tolerate physical therapy due to pain. . Patient has a good understanding of their pain condition and has appropriate mental and social support. Scribed for Dr. Cool by Raul Plascencia certified medical coding specialist, on 03/13/2024. I, Dr. Cool, have personally reviewed and agree with the information entered by the scribe.
[2024-03-13 10:51] VITALS: BP 125/74; PULSE 67; RESP 14; BMI 24.9
== END 2024-03-13 11:11 | disposition home or self-care (01) ==
PROVIDERS: PCP Internal Medicine; Visit Provider Internal Medicine
DX: M25.562 Pain in left knee (principal)
CPT/HCPCS: 99204

== ENCOUNTER → 2024-03-13 10:36 | Outpatient (BNVA) | payer OTHER, SELFPAY | PROVIDERS: PCP Internal Medicine; Visit Provider Internal Medicine ==

== ENCOUNTER 2024-04-22 11:17 | Outpatient (REF) | payer OTHER, SELFPAY ==
[2024-04-22 11:30] LABS: MANUAL DIFF FLAG NO
[2024-04-22 12:13] LABS: Basophils Absolute Auto 0.1 X10*3/uL (0.0-0.2); Basophils Percent Auto 0.8 % (0-2); Eosinophils Absolute Auto 0.3 X10*3/uL (0.0-0.4); Eosinophils Percent Auto 4.3 % (0-4); Hematocrit 45.9 % (37.0-47.0); Hemoglobin 14.9 g/dl (12.0-16.0); Imm Gran Abs Auto 0.04 X10*3/uL (0.00-0.03); Imm Gran Pct Auto 0.6 % (0.0-0.4); Lymphocytes Absolute Auto 1.4 X10*3/uL (1.2-4.9); Mean Corpuscular HGB Conc 32.5 g/dl (31.0-35.0); Mean Corpuscular Hemoglobin 30.2 pg (27.0-33.0); Mean Corpuscular Volume 93.1 fL (80.0-98.0); Monocytes Absolute Auto 0.6 X10*3/uL (0.1-1.2); Monocytes Percent Auto 7.7 % (2-11); Neutrophils Absolute Auto 4.8 x10*3/uL (2.0-8.3); Neutrophils Percent Auto 66.6 % (45-73); Platelet Count 386 X10*3/uL (160-400); Red Blood Count 4.93 X10*6/uL (4.20-5.50); White Blood Count 7.2 X10*3/uL (4.8-10.8)
[2024-04-22 12:51] LABS: Alanine Aminotransferase 48 U/L (0-31); Albumin Level 4.5 g/dL (3.5-5.0); Alkaline Phosphatase 118 U/L (39-117); Anion Gap 13 (12-20); Aspartate Amino Transferase 42 U/L (5-31); Bilirubin Total 0.4 mg/dL (0.0-1.0); Blood Urea Nitrogen 16 mg/dL (9-16); Calcium 10.1 mg/dL (8.4-10.2); Carbon Dioxide 26 mmol/L (22-29); Chloride 106 mmol/L (96-108); Cholesterol 208 mg/dL (<200); Estimated Glomerular Filt Rate > 60; Glucose Random 97 mg/dL (60-115); HDL Cholesterol 101 mg/dL (>40); LDL Cholesterol Calculated 99 mg/dL (<100); Potassium 4.1 mmol/L (3.3-5.1); Sodium 141 mmol/L (135-145); Total Protein 7.6 g/dL (6.5-8.0); Triglycerides 44 mg/dL (<150)
[2024-04-22 13:02] LABS: TSH reflex Free T4 0.72 uIU/mL (0.32-4.0); Vitamin D 25-OH Total 46.4 ng/mL (>30)
[2024-04-23 14:24] LABS: LDL Cholesterol Direct 102 mg/dL (<100)
== END 2024-04-22 11:18 | disposition home or self-care (01) ==
LOC: HO.LAB 11:17
PROVIDERS: PCP Internal Medicine; Visit Provider Internal Medicine
DX: Z00.00 Encounter for general adult medical examination without abnormal findings (principal); R31.9 Hematuria, unspecified; E55.9 Vitamin D deficiency, unspecified; R53.83 Other fatigue; E78.5 Hyperlipidemia, unspecified
CPT/HCPCS: 36415; 80053; 80061; 82306; 83721; 84443; 85025

== ENCOUNTER 2024-04-23 06:17 | Outpatient (REF) | payer OTHER, SELFPAY | END 2024-04-23 06:18 | disposition home or self-care (01) | LOC: CF 06:17 | PROVIDERS: Visit Provider Internal Medicine | DX: M25.562 Pain in left knee (principal); G89.29 Other chronic pain | CPT/HCPCS: 64555; C1778 ==

== ENCOUNTER 2024-04-23 11:13 | Outpatient (AMB) | payer OTHER, SELFPAY ==
--- NOTE | 2024-04-23 11:18 | A.OFFVIS_ITS ---
Vital Signs 04/23/24 12:10 04/23/24 12:11 Height 5 ft 6 in Weight 154 lb BMI 24.9 BP 118/68 122/72 Blood Pressure Location Lt brachial Lt brachial Position Sitting Sitting Respiration 18 18 Pulse 76 87 Pulse Source Pulse Oximeter Pulse Oximeter Pulse Oximetry (%) 99 97 Oxygen Delivery Method Room Air Room Air Comment Pre-Op Post-Op Intake Visit Reasons: Left saphenous nerve Sprint Allergies hydromorphone [From DILAUDID] Adverse Reaction (Unknown, Verified 03/13/24 10:53) MAKES ME LOOPY seasonal allergies Allergy (Unknown, Uncoded 03/13/24 10:53) Unknown HPI HPI Left saphenous nerve Sprint: Details: Patient presents for scheduled procedure. Denies any recent cough, cold, infection, fever or other significant changes in medical history since last office visit. [facility] Medical History Osteopenia (~2016) Osteoarthritis of foot, left Obstructive sleep apnea on CPAP (~2011) Mammogram normal Normal colonoscopy PFO with atrial 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 Mother No problems noted. Sister Breast cancer CVD (cardiovascular disease) Paternal Grandmother Breast cancer Paternal Grandfather No problems noted. 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 After the risks, benefits and alternatives were discussed with the patient and informed consentwas obtained, patient was placed in the supine position and padded to foster comfort. Appropriate skin and bony landmarks were identified, and pertinent vascular structures were located. The skin overlying the needle entry site was prepped and draped in sterile fashion. Ultrasound was used to identify the femoral artery, the femoral vein and the saphenous nerve. After identifying and marking the intended target along the course of the saphenous n erve, the skin around the planned entry point and the subcutaneous tissues were injected with local anesthetic. An introducer needle and stimulating probe were assembled, inserted and advanced along the intended course of the saphenous nerve, taking care to maintain the proper depth of insertion as the introducer was advanced under ultrasound guidance. The introducer needle was delivered to a location in proximity to the nerve taking care not to puncture the femoral artery or the vein. Multiple stimulation parameters were used to deliver stimulation to the saphenous nerve in concert with stimulating at multiple positions around the nerve. Nerve target acquisition was confirmed noting generation of sensory and mild motor effects (paresthesia, muscle tension, etc) in the medial knee, leg and ankle; corresponding to the distribution of the saphenous nerve. Various electrical parameter combinations were tested, and the lead location was adjusted (physically relocated under ultrasound guidance) until the patient indicated medial knee paresthesia and tension overlapping the distribution of the patient?s typical region of pain. The stimulating probe was removed from the introducer and a percutaneous lead was guided through the needle and delivered to a location in similar proximity to the nerve. Final location was verified with electrical stimulation and documented. The introducer needle was removed, and the exposed end of the percutaneous lead was attached to an external stimulator unit. Various electrical parameter combinations were again tested until the patient indicated paresthesia and muscle tension overlapping the distribution of the patient?s typical region of pain. After confirming that lead impedance was in the normal range, the external unit was detached, the needle was removed, and the lead was anchored at the skin. The lead was threaded into the connector block and electrical continuity and desired patient response was confirmed. The connector block was attached to the external stimulator unit. The site was covered with a sterile occlusive dressing. A final ultrasound image was taken to document final placement. The patient was observed for stability of vital signs and comfort. Sprint PNS Device: Sprint PNS Device [id number] Percutaneous Peripheral Neuroelectrode Procedure: 71853 - Percutaneous Peripheral Neuroelectrode Procedure code (CPT) selection complete Office Meds lidocaine (PF) 50 mg/5 mL (1 %) injection syringe Performing Provider: Beryl Cardona APRN, CNP Performing Location: [facility] [place] [facility] Administered by: Maya Schuler LPN on 04/23/24 11:46 Dose Route Admin Location Dispensed Lot Number Expiration Date [facility] Technology Risk Intern 5 mL subcut 5 mL Assessment & Plan Assessment & Plan (1) Left knee pain: Code(s): M25.562 - Pain in left knee Category: Medical Qualifiers: Chronicity: chronic Qualified Code(s): M25.562 - Pain in left knee; G89.29 - Other chronic pain (2) 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 Patient tolerated procedure well and was discharged home in stable condition with discharge instructions. All questions were answered. We will follow-up via telephone or in clinic to assess response to therapy. A follow-up appointment was made during today's visit. 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 04/23/24 07/18/25
[2024-04-23 12:10] VITALS: BP 118/68; PULSE 76; RESP 18; O2SAT 99; BMI 24.9
[2024-04-23 12:11] VITALS: BP 122/72; PULSE 87; RESP 18; O2SAT 97
== END 2024-04-23 12:13 | disposition home or self-care (01) ==
LOC: HO.PMCPRC 11:13
PROVIDERS: PCP Internal Medicine; Visit Provider Internal Medicine
DX: G89.29 Other chronic pain (principal); M25.562 Pain in left knee; M25.569 Pain in unspecified knee; Z96.659 Presence of unspecified artificial knee joint
CPT/HCPCS: 64555

== ENCOUNTER 2024-04-24 07:57 | Outpatient (AMB) | payer OTHER, SELFPAY ==
--- NOTE | 2024-04-24 08:10 | A.OFFPC_ITS ---
Vital Signs 04/24/24 08:11 Height 5 ft 6 in Weight 152 lb BMI 24.5 BP 118/66 Blood Pressure Location Rt brachial Position Sitting Pulse 82 Pulse Source Pulse Oximeter Pulse Oximetry (%) 97 Oxygen Delivery Method Room Air Intake Visit Reasons: Annual PE Intake Note: Pt is here today for PE. Allergies hydromorphone [From DILAUDID] Adverse Reaction (Unknown, Verified 04/24/24 08:12) MAKES ME LOOPY seasonal allergies Allergy (Unknown, Uncoded 04/24/24 08:12) Unknown Medication List - Last Reconciled 04/24/24 by Xenia Gr MD aspirin 81 mg PO DAILY calcium carbonate (Calci-Mix) 500 mg PO DAILY cetirizine (Zyrtec) 10 mg PO DAILY PRN cholecalciferol (vitamin D3) 50 mcg PO DAILY clobetasol 0.05% 1 appl topical BID 2 weeks fluticasone propionate 50 mcg/actuation (Flonase Allergy Relief) 1 spray intranasal DAILY furosemide (Lasix) 20 mg PO DAILY PRN magnesium hydroxide 400 mg PO BEDTIME PRN meclizine 25 mg PO BID PRN montelukast 10 mg PO DAILY pravastatin 40 mg PO DAILY sumatriptan succinate take 1 tab at onset of headache; if no relief, may repeat 1 tab after at least 2 hrs; max = 2 tabs/24 hrs PO tretinoin 0.1% 1 appl topical BEDTIME turmeric 1,000 mg PO Tobacco use date assessed: 04/24/24 Fall risk assessment: No Falls in past year Last assessed Fall Risk: 04/24/24 Dental Screening Dental Screen Date: 04/24/24 Did you have a dental visit in the last 12 months?: Yes Did you have a dental problem in the last 6 months where you did not have access to dental care?: No Was dental information given to patient?: Patient has dentist HPI Annual PE HPI Details Patient presents for PE PFSH Medical History Osteopenia (~2017) Osteoarthritis of foot, left Obstructive sleep apnea on CPAP (~2011) Mammogram normal Normal colonoscopy PFO with atrial 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 Mother No problems noted. Sister Breast cancer CVD (cardiovascular disease) Paternal Grandmother Breast cancer Paternal Grandfather No problems noted. 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 1. Little interest or pleasure in doing things: not at all 2. Feeling down, depressed, or hopeless: not at all 3. Trouble falling or staying asleep, or sleeping too much: not at all 4. Feeling tired or having little energy: not at all 5. Poor appetite or overeating: not at all 6. Feeling bad about yourself - or that you are a failure or have let yourself or your family down: not at all 7. Trouble concentrating on things, such as reading the newspaper or watching television: not at all 8. Moving or speaking so slowly that other people could have noticed. Or the opposite - being so fidgety or restless that you have been moving around a lot more than usual: not at all 9. Thoughts that you would be better off or of hurting yourself in some way: not at all Total score: 0 Depression Screening Interpretation: Negative Depression Screening Done: Yes Source: Developed by Drs. Christian Huddleston, Michelle Souza, Keven Belle and colleagues, with an educational sharona from backstitch. Thrive Questionnaire Date Thrive assessed: 04/24/24 I am a: Patient What is your living situation today?: I have a steady place to live Within the past 12 months, did the food you bought not last and you didn't have the money to get more?: Never true Within the past 12 months, did you worry whether your food would run out before you got money to buy more?: Never true Do you have trouble paying for medicines?: No Do you have trouble getting transportation to medical appointments?: No Do you have trouble paying your heating and electricity bill?: No Do you have trouble taking care of your child, family member or friend?: No Do you have trouble with day-to-day activities such as bathing, preparing meals, shopping, managing finances, etc.?: No Are you currently unemployed and looking for a job?: No Are you interested in more education?: No Please select the resources that you would like help with: None THRIVE Score: 0 AUDIT C Alcohol Use Questionnaire (AUDIT-C) 1. How often do you have a drink containing alcohol?: 2-3 times a week 2. How many drinks containing alcohol do you have on a typical day when you are drinking?: 1 or 2 3. How often do you have six or more drinks on one occasion?: Never Total Score: 3 JAMES-7 AMB Questionnaire JAMES-7 Date JAMES - 7 assessed: 04/24/24 Feeling nervous, anxious, or on edge: 0 = Not at all Not being able to stop or control worryin = Not at all Worrying too much about different things: 0 = Not at all Trouble relaxin = Not at all Being so restless that it is hard to sit still: 0 = Not at all Becoming easily annoyed or irritable: 0 = Not at all Feeling afraid as if something awful might happen: 0 = Not at all Total JAMES-7 score (0-4 normal; 5-9 mild; 10-14 moderate; 15-21 severe): 0 Source: Developed by Drs. Christian Huddleston, Michelle Souza, Keven Belle and colleagues, with an educational sharona from backstitch. Review of Systems Const All systems reviewed & are unremarkable except as noted in HPI and below Reports no additional complaints Eyes Reports no additional complaints ENT Reports no additional complaints Card Reports no additional complaints Resp Reports no additional complaints GI Reports no additional complaints Reports no additional complaints Physical exam (Primary Care) Vital Signs: Last Vital Signs Pulse 82 04/24/24 08:11 BP 118/66 04/24/24 08:11 Pulse Ox 97 04/24/24 08:11 Oxygen Delivery Method Room Air 04/24/24 08:11 BMI result Body Mass Index 24.5 Tobacco/Smoking Status: Tobacco use Status Tobacco use date assessed 04/24/24 04/24/24 08:17 Patient Tobacco Use Status Former Tobacco user 04/24/24 08:10 e-Cigarette/Vaping Use Never Used 04/24/24 08:10 PHQ-9: PHQ-9 Score PHQ-9: Total score 0 04/24/24 08:22 Depression Screening Interpretation: Negative Thrive Assessment: Date of Thrive Assessment Date Thrive assessed 04/24/24 04/24/24 08:22 Const General: well developed HENMT Head: Yes normal to inspection Ears: hearing grossly normal bilaterally Face and sinus: Yes normal facial exam Throat: Yes posterior oropharynx normal Eyes General: appearance normal, both eyes and all related structures Neck Neck: Yes supple Resp Effort & Inspection: normal respiratory effort Auscultation: clear to auscultation bilaterally Cardio Rhythm: regular rhythm Heart sounds: S1 normal heart sound present and S2 normal heart sound present GI Inspection: Yes normal to inspection Palpation (GI): Soft to palpation Percussion: Yes normal to percussion Auscultation: normal bowel sounds Assessment and Plan Assessment & Plan (1) Hyperlipemia: Code(s): E78.5 - Hyperlipidemia, unspecified Plan: Continue statin (2) Vitamin D insufficiency: Code(s): E55.9 - Vitamin D deficiency, unspecified Plan: Continue vitamin-D supplement (3) Annual physical exam: Code(s): Z00.00 - Encounter for general adult medical examination without abnormal findings Plan: Well-balanced diet regular physical activity discussed with the patient she is up-to-date with mammogram colonoscopy and torch straightener exam (4) Elevated LFTs: Code(s): R79.89 - Other specified abnormal findings of blood chemistry Plan: FOR BORDERLINE ELEVATED LFTS PATIENT WAS ADVISED TO AVOID ALCOHOL NSAIDS AND REPEAT LFTS IN 2 WEEKS AND 6 MONTHS Orders: Orders Liver Panel 2 Weeks E78.5 - Hyperlipidemia, unspecified Complete Blood Count Auto Diff 1 Year E55.9 - Vitamin D deficiency, unspecified, E78.5 - Hyperlipidemia, unspecified, Z00.00 - Encounter for general adult medical examination without abnormal findings Vitamin D 25-OH Total 1 Year E55.9 - Vitamin D deficiency, unspecified, E78.5 - Hyperlipidemia, unspecified, Z00.00 - Encounter for general adult medical examination without abnormal findings Hepatitis A,B,C Profile 2 Weeks E78.5 - Hyperlipidemia, unspecified Comprehensive [place]. Panel Fast 6 Months E78.5 - Hyperlipidemia, unspecified Lipid Panel 6 Months E78.5 - Hyperlipidemia, unspecified Comprehensive [place]. Panel Fast 1 Year E55.9 - Vitamin D deficiency, unspecified, E78.5 - Hyperlipidemia, unspecified, Z00.00 - Encounter for general adult medical examination without abnormal findings Lipid Panel 1 Year E55.9 - Vitamin D deficiency, unspecified, E78.5 - Hyperlipidemia, unspecified, Z00.00 - Encounter for general adult medical examination without abnormal findings TSH reflex Free T4 1 Year E55.9 - Vitamin D deficiency, unspecified, E78.5 - Hyperlipidemia, unspecified, Z00.00 - Encounter for general adult medical examination without abnormal findings Coding Level of Care Code Est Pt Prev Care 40-64y(46519) Diagnoses Hyperlipemia E78.5 Vitamin D insufficiency E55.9 Annual physical exam Z00.00 Elevated LFTs R79.89
[2024-04-24 08:11] VITALS: BP 118/66; PULSE 82; O2SAT 97; BMI 24.5
== END 2024-04-24 08:42 | disposition home or self-care (01) ==
PROVIDERS: Visit Provider Internal Medicine
DX: E78.5 Hyperlipidemia, unspecified (principal); E55.9 Vitamin D deficiency, unspecified; Z00.00 Encounter for general adult medical examination without abnormal findings; R79.89 Other specified abnormal findings of blood chemistry
CPT/HCPCS: 99396

== ENCOUNTER 2024-05-06 14:02 | Outpatient (AMB) | payer OTHER, SELFPAY ==
[2024-05-06 14:21] VITALS: BP 102/62; PULSE 71; O2SAT 98; BMI 24.7
--- NOTE | 2024-05-06 14:21 | A.OFFVIS_ITS ---
Vital Signs 05/06/24 14:21 Height 5 ft 6 in Weight 153 lb 3.54 oz BMI 24.7 BP 102/62 Blood Pressure Location Lt brachial Position Sitting Pulse 71 Pulse Source Pulse Oximeter Pulse Oximetry (%) 98 Oxygen Delivery Method Room Air Intake Visit Reasons: Obstructive sleep apnea Intake Note: pt is here for follow up and states she is feeling amazing, she has bad allergies. She uses cpap every night with no issues. Curtain Stitcher Required: No Allergies hydromorphone [From DILAUDID] Adverse Reaction (Unknown, Verified 05/06/24 14:49) MAKES ME LOOPY seasonal allergies Allergy (Unknown, Uncoded 05/06/24 14:49) Unknown Medication List - Last Reconciled 05/06/24 by Timoteo Lieberman MD aspirin 81 mg PO DAILY calcium carbonate (Calci-Mix) 500 mg PO DAILY cetirizine (Zyrtec) 10 mg PO DAILY PRN cholecalciferol (vitamin D3) 50 mcg PO DAILY clobetasol 0.05% 1 appl topical BID 2 weeks fluticasone propionate 50 mcg/actuation (Flonase Allergy Relief) 1 spray intranasal DAILY furosemide (Lasix) 20 mg PO DAILY PRN magnesium hydroxide 400 mg PO BEDTIME PRN meclizine 25 mg PO BID PRN montelukast 10 mg PO DAILY pravastatin 40 mg PO DAILY sumatriptan succinate take 1 tab at onset of headache; if no relief, may repeat 1 tab after at least 2 hrs; max = 2 tabs/24 hrs PO tretinoin 0.1% 1 appl topical BEDTIME turmeric 1,000 mg PO HPI HPI Obstructive sleep apnea: Details: 63 YEARS OLD FEMALE OF A THIN BUILD BUT DOES HAVE OBSTRUCTIVE SLEEP APNEA DUE TO RETROGANTHIA. SHE IS COMING AFTER 1 YEAR FOR FOLLOW-UP. SHE USES CPAP VERY REGULARLY, AND JUST CAN NOT SLEEP WITHOUT THE CPAP. SHE WENT TO [facility] FOR 2 DAYS VOCATION, AND FORGOT TO TAKE CPAP DEVICE WITHHER . HAD TO COME BACK AFTER 1 NIGHT BECAUSE SHE COULD NOT SLEEP. SHE KEEPS ON GETTING SUPPLIES REGULARLY ON TIME HER CPAP DOES WORK FINE BUT THE MACHINE IS THE NOT TRANSMITTING THE COMPLIANCE DATA FOR THE PAST FEW YEARS. SHE ALSO HAS FREQUENT BOUTS OF NASAL CONGESTION DUE TO ALLERGIC RHINITIS. A FEW MONTHS AGO SHE HAD TO GO TO AN URGENT CARE CLINIC, WAS STARTED ON MONTELUKAST 10 MG DAILY IN ADDITION TO FLONASE AND ZYRTEC. THIS IS HELPING TO MINIMIZE HER FLARE UPS OF ALLERGIC RHINITIS. DENIES ANY WHEEZING OR SHORTNESS OF BREATH. [facility] Medical History (Updated 05/06/24 @ 14:58 by Timoteo Lieberman MD) Osteopenia (~2016) Osteoarthritis of foot, left Obstructive sleep apnea on CPAP (~2011) Mammogram normal Normal colonoscopy PFO with atrial 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 Mother No problems noted. Sister Breast cancer CVD (cardiovascular disease) Paternal Grandmother Breast cancer Paternal Grandfather No problems noted. 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 Cognitive needs: No Hearing needs: No Vision needs: Yes Female Reproductive History Menstrual Age of Menarche: 11 Review of Systems Const All systems reviewed & are unremarkable except as noted in HPI and below ENT Reports nasal congestion (intermittent ) Card Denies chest pain, Denies leg edema and Denies dyspnea on exertion Resp Denies cough, Denies dyspnea on exertion and Denies wheezing GI Reports no additional complaints Musc Reports no additional complaints Neuro Reports no additional complaints and Reports Abnormal speech present Psych Reports no additional complaints Endo Reports no additional complaints Aller/Immun Denies wheezing Physical Exam Vital Signs: Last Vital Signs Pulse 71 05/06/24 14:21 BP 102/62 05/06/24 14:21 Pulse Ox 98 05/06/24 14:21 Oxygen Delivery Method Room Air 05/06/24 14:21 BMI result Body Mass Index 24.7 Const General: healthy appearing, comfortable, no acute distress, alert and awake Orientation/consciousness: patient oriented x3 HEENT Head: Yes normal to inspection General nose exam: No nasal polyps present and No nasal discharge present Face and sinus: Yes sinuses nontender Mouth: oropharynx normal Throat: Yes posterior oropharynx normal Eyes General: appearance normal, both eyes and all related structures Neck Neck: Yes normal visual inspection, Yes no lymphadenopathy, Yes trachea midline and Yes no JVD Thyroid: Thyroid normal Chest Chest palpation & inspection: normal inspection of the chest and normal palpation of entire chest wall Resp Effort & Inspection: normal respiratory effort Auscultation: no crackles and no wheezes Cardio Palpation: normal PMI Rate: regular rate Rhythm: regular rhythm Heart sounds: no gallops and no murmurs Peripheral pulses: Peripheral pulses 2+ throughout GI Palpation (GI): Soft to palpation, nontender, No hepatosplenomegaly present and no masses Auscultation: normal bowel sounds Back/Spine/Pelvis Thoracic/Lumbar Spine: thoracic and lumbar spine normal to inspection Skin General skin exam: no rashes or lesions noted Neuro General: patient oriented x3 and no focal motor deficits Cranial nerves: Yes CN's II-XII intact bilaterally Speech: Abnormal speech present Extrem General: Yes normal to inspection, Yes no clubbing, cyanosis or edema, Yes no calf tenderness and No venous stasis dermatitis Psych Speech and movement: Normal speech and movement present Assessment & Plan Assessment & Plan (1) Obstructive sleep apnea on CPAP: Onset Date: ~2011 Comment: (EVA since 2011, Compliant with CPAP) SHE SLEEPS OKAY WITH THE CPAP BUT WITHOUT PUTTING ON THE CPAP SHE JUST CAN NOT GO TO SLEEP. Code(s): G47.33 - Obstructive sleep apnea (adult) (pediatric); Z99.89 - Dependence on other enabling machines and devices Category: Medical Plan: Stress that she has to use CPAP every night regularly. She has no issue with the mask or CPAP device at this time, and she is able to get her supplies regularly . (2) Allergic rhinitis: Comment: She has had mild intermittent nasal congestion for long time, but during the past year her symptoms have been more frequent and worse. After her visit to the urgent care clinic she has been started on montelukast which has helped her significantly. Code(s): J30.9 - Allergic rhinitis, unspecified Category: Medical Plan: Continue Flonase 2 spray in each nostril daily Zyrtec 10 mg once a day p.r.n. when she has increased nasal congestion Continue montelukast 10 mg daily Medications: New montelukast 10 mg PO DAILY 30 tabs 5RF allergic Rhinitis 30 days Coding Level of Care Code Est Pt Level 3 (16054) Diagnoses Obstructive sleep apnea on CPAP G47.33; Z99.89 Allergic rhinitis J30.9
== END 2024-05-06 14:49 | disposition home or self-care (01) ==
PROVIDERS: PCP Internal Medicine; Visit Provider Internal Medicine
DX: G47.33 Obstructive sleep apnea (adult) (pediatric) (principal); Z99.89 Dependence on other enabling machines and devices; J30.9 Allergic rhinitis, unspecified
CPT/HCPCS: 99213

== ENCOUNTER → 2024-05-06 14:02 | Outpatient (BNVA) | payer OTHER, SELFPAY | PROVIDERS: PCP Internal Medicine; Visit Provider Internal Medicine ==

== ENCOUNTER 2024-05-12 15:27 | Outpatient (REF) | payer OTHER, SELFPAY | END 2024-05-12 15:28 | disposition home or self-care (01) | LOC: HO.MAMMO 15:27 | PROVIDERS: PCP Internal Medicine; Visit Provider Internal Medicine | DX: Z12.31 Encounter for screening mammogram for malignant neoplasm of breast (principal) | CPT/HCPCS: 77063; 77067 ==

== ENCOUNTER → 2024-05-12 15:30 | Outpatient (BNV) | payer OTHER, SELFPAY | PROVIDERS: PCP Internal Medicine; Visit Provider Radiology Diagnostic Radiology | DX: Z12.31 Encounter for screening mammogram for malignant neoplasm of breast (principal) | CPT/HCPCS: 77063; 77067 ==

== ENCOUNTER 2024-05-13 08:33 | Outpatient (AMB) | payer OTHER, SELFPAY ==
--- NOTE | 2024-05-13 08:41 | A.OFFVIS_ITS ---
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 No complaints. Last Pap/HPV was in 2015, the patient is status post [facility] BSO for prolapse, no history of abnormal Pap smears Last Mammogram was on 05/12/2024, the report is still pending Last Colonoscopy was done in 11/2021, the recommendation was to repeat in 10 years [facility] Medical History (Updated 05/13/24 @ 08:53 by Josiah Jason MD) Osteopenia (~2016) Osteoarthritis of foot, left Obstructive sleep apnea on CPAP (~2011) Mammogram normal Normal colonoscopy PFO with atrial 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 Mother No problems noted. Sister Breast cancer CVD (cardiovascular disease) Paternal Grandmother Breast cancer Paternal Grandfather No problems noted. 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 Cognitive needs: No Hearing needs: No Vision needs: Yes Female Reproductive History Menstrual Age of Menarche: 11 Total pregnancies: 2 Full term: 2 Number of Living Children: 2 Date of Mammogram: 05/12/24 Review of Systems Const All systems reviewed & are unremarkable except as noted in HPI and below Card Reports as per HPI and Reports no additional complaints Resp Reports as per HPI and Reports no additional complaints GI Reports as per HPI and Reports no additional complaints Reports as per HPI Physical Exam Vital Signs: Last Vital Signs BP 108/60 05/13/24 08:43 BMI result Body Mass Index 24.5 Const General: cooperative, healthy appearing and comfortable General: Yes bladder normal to palpation External Female Exam: No lesion Speculum Exam - Vagina: normal appearance of the vagina, normal vaginal discharge and not erythematous Speculum Exam - Cervix: Cervix absent Bimanual exam- vagina & uterus: bladder normal to palpation and uterus absent Bimanual Exam- Adnexa, other: Other (No masses detected) Assessment & Plan Assessment & Plan (1) Well woman exam: Code(s): Z01.419 - Encounter for gynecological examination (general) (routine) without abnormal findings Category: Medical Plan: Co testing not indicated, the patient is status post [facility] BSO for prolapse with no history of abnormal Pap smear. Counseled the patient about the recommended dietary allowance of 1200 mg of Calcium & 600 IU of vitamin D. Instructions given the patient to schedule next screening Mammogram in 05/26. The patient was instructed to perform monthly self-breast exams and schedule annual exam in a year. All questions answered and the patient verbalized understanding. Coding Level of Care Code Est Pt Prev Care 40-64y(76554) Diagnoses Well woman exam Z01.419
[2024-05-13 08:43] VITALS: BP 108/60; BMI 24.5
== END 2024-05-13 09:43 | disposition home or self-care (01) ==
PROVIDERS: PCP Internal Medicine; Visit Provider Obstetrics & Gynecology
DX: Z01.419 Encounter for gynecological examination (general) (routine) without abnormal findings (principal)
CPT/HCPCS: 99396

== ENCOUNTER → 2024-05-13 08:33 | Outpatient (BNVA) | payer OTHER, SELFPAY | PROVIDERS: PCP Internal Medicine; Visit Provider Obstetrics & Gynecology ==

== ENCOUNTER 2024-05-13 09:44 | Outpatient (AMB) | payer OTHER, SELFPAY ==
--- NOTE | 2024-05-13 10:03 | A.OFFVIS_ITS ---
Vital Signs 05/13/24 10:04 Height 5 ft 6 in Weight 152 lb BMI 24.5 BP 119/66 Blood Pressure Location Rt brachial Position Sitting Respiration 14 Pulse 62 Pulse Source Pulse Oximeter Pulse Oximetry (%) 98 Oxygen Delivery Method Room Air Intake Visit Reasons: s/p Left SN Sprint Allergies hydromorphone [From DILAUDID] Adverse Reaction (Unknown, Verified 05/13/24 10:05) MAKES ME LOOPY seasonal allergies Allergy (Unknown, Uncoded 05/13/24 10:05) Unknown Medication List - Last Reconciled 05/13/24 by Maya Schuler LPN aspirin 81 mg PO DAILY calcium carbonate (Calci-Mix) 500 mg PO DAILY cetirizine (Zyrtec) 10 mg PO DAILY PRN cholecalciferol (vitamin D3) 50 mcg PO DAILY clobetasol 0.05% 1 appl topical BID 2 weeks fluticasone propionate 50 mcg/actuation (Flonase Allergy Relief) 1 spray intranasal DAILY furosemide (Lasix) 20 mg PO DAILY PRN magnesium hydroxide 400 mg PO BEDTIME PRN meclizine 25 mg PO BID PRN montelukast 10 mg PO DAILY 30 days pravastatin 40 mg PO DAILY sumatriptan succinate take 1 tab at onset of headache; if no relief, may repeat 1 tab after at least 2 hrs; max = 2 tabs/24 hrs PO tretinoin 0.1% 1 appl topical BEDTIME turmeric 1,000 mg PO HPI HPI s/p Left SN Sprint: Details: 63-year-old female who presents to the office for status post left SN Sprint. The patient reports 50% relief following the procedure. Past Procedures: 04/23/24: Peripheral Nerve Stimulation Temporary Lead Placement, Ultrasound- Guided, Saphenous Nerve, Left: More than 50% initial relief PFSH Medical History (Updated 05/13/24 @ 08:53 by Josiah Jason MD) Osteopenia (~2016) Osteoarthritis of foot, left Obstructive sleep apnea on CPAP (~2011) Mammogram normal Normal colonoscopy PFO with atrial 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 Mother No problems noted. Sister Breast cancer CVD (cardiovascular disease) Paternal Grandmother Breast cancer Paternal Grandfather No problems noted. 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 Alert and oriented. Mood and affect appropriate. Follows and participates in conversation appropriately. Respiratory effort is unlabored. Able to transition from sit to stand unassisted. Insertion?site?dressings?are?clean,?dry?and?intact. Results Reviewed Results Reviewed: 02/06/24: XR KNEE, LEFT FINDINGS: Status post left knee arthroplasty. No evidence of hardware fracture or loosening. No bony fracture or significant joint effusion appreciated. Alignment is anatomic. No abnormal soft tissue calcification identified. IMPRESSION: Status post left knee arthroplasty. No acute finding. Assessment & Plan Assessment & Plan (1) Chronic knee pain after total replacement of knee joint: Code(s): M25.569 - Pain in unspecified knee; G89.29 - Other chronic pain; Z96.659 - Presence of unspecified artificial knee joint Category: Medical Plan Follow-up in 6 weeks for lead removal after completing prescribed therapeutic duration. Scribed for Dr. Cool by Nay Esparza medical health researcher, on 05/13/2024. I, Dr. Cool, have personally reviewed and agree with the information entered by the scribe. Coding Level of Care Code Est Pt Level 3 (77029) Diagnoses Chronic knee pain after total replacement of knee joint M25.569; G89.29; Z96.659
[2024-05-13 10:04] VITALS: BP 119/66; PULSE 62; RESP 14; O2SAT 98; BMI 24.5
== END 2024-05-13 10:59 | disposition home or self-care (01) ==
PROVIDERS: PCP Internal Medicine; Visit Provider Internal Medicine
DX: G89.29 Other chronic pain (principal); M25.562 Pain in left knee; Z96.652 Presence of left artificial knee joint
CPT/HCPCS: 99213

== ENCOUNTER 2024-05-26 08:54 | Outpatient (REF) | payer OTHER, SELFPAY ==
[2024-05-26 09:56] LABS: Alanine Aminotransferase 19 U/L (0-31); Albumin Level 4.4 g/dL (3.5-5.0); Alkaline Phosphatase 113 U/L (39-117); Aspartate Amino Transferase 18 U/L (5-31); Bilirubin Direct 0.2 mg/dL (0.0-0.5); Bilirubin Total 0.6 mg/dL (0.0-1.0); Total Protein 7.4 g/dL (6.5-8.0)
[2024-05-26 10:22] LABS: HBS Num1 1.39 mIU/mL (0-7.99); HBc Num1 0.07 S/CO (0.00-0.79); HBsAGNum1 0.25 S/CO (0.00-0.99); Hepatitis A Antibody IgM 0.12 Index (0-0.79); Hepatitis B Core Antibody Nonreactive (Nonreactive); Hepatitis B Surface Antigen Negative (Negative); ~HepC Num1 0.06 S/CO (0.00-0.79); ~Hepatitis A Antibody IgM Nonreactive (Nonreactive); ~Hepatitis B Surface Antibody NONREACTIVE (Nonreactive); ~Hepatitis C Antibody Nonreactive (Nonreactive)
== END 2024-05-26 08:55 | disposition home or self-care (01) ==
LOC: HO.LAB 08:54
PROVIDERS: PCP Internal Medicine; Visit Provider Internal Medicine
DX: E78.5 Hyperlipidemia, unspecified (principal)
CPT/HCPCS: 36415; 80076; 86704; 86706; 86709; 86803; 87340

== ENCOUNTER 2024-06-17 09:02 | Outpatient (AMB) | payer OTHER, SELFPAY ==
[2024-06-17 09:09] VITALS: BP 123/70; PULSE 62; RESP 14; O2SAT 97; BMI 24.5
--- NOTE | 2024-06-17 09:09 | A.OFFVIS_ITS ---
Vital Signs 06/17/24 09:09 Height 5 ft 6 in Weight 152 lb BMI 24.5 BP 123/70 Blood Pressure Location Lt brachial Position Sitting Respiration 14 Pulse 62 Pulse Source Pulse Oximeter Pulse Oximetry (%) 97 Oxygen Delivery Method Room Air Intake Visit Reasons: Sprint removal Allergies hydromorphone [From DILAUDID] Adverse Reaction (Unknown, Verified 06/17/24 09:11) MAKES ME LOOPY seasonal allergies Allergy (Unknown, Uncoded 06/17/24 09:11) Unknown Medication List - Last Reconciled 06/17/24 by Maya Schuler LPN aspirin 81 mg PO DAILY calcium carbonate (Calci-Mix) 500 mg PO DAILY cetirizine (Zyrtec) 10 mg PO DAILY PRN cholecalciferol (vitamin D3) 50 mcg PO DAILY clobetasol 0.05% 1 appl topical BID 2 weeks fluticasone propionate 50 mcg/actuation (Flonase Allergy Relief) 1 spray intranasal DAILY furosemide (Lasix) 20 mg PO DAILY PRN magnesium hydroxide 400 mg PO BEDTIME PRN meclizine 25 mg PO BID PRN montelukast 10 mg PO DAILY 30 days pravastatin 40 mg PO DAILY sumatriptan succinate take 1 tab at onset of headache; if no relief, may repeat 1 tab after at least 2 hrs; max = 2 tabs/24 hrs PO tretinoin 0.1% 1 appl topical BEDTIME turmeric 1,000 mg PO HPI HPI Sprint removal: Details: 63-year-old female who presents to the office for Sprint removal The patient reports 60-70% relief following the procedure. She has been more active and has been engaged in biking and hiking, more than she was able to prior to the PNS lead placement. She also reports resolution of the frequent sharp pain episodes that she used to get at night. Past Procedures: 04/23/24: Peripheral Nerve Stimulation Temporary Lead Placement, Ultrasound- Guided, Saphenous Nerve, Left: More than 50% initial relief [facility] Medical History (Updated 05/13/24 @ 08:53 by Josiah Jason MD) Osteopenia (~2016) Osteoarthritis of foot, left Obstructive sleep apnea on CPAP (~2011) Mammogram normal Normal colonoscopy PFO with atrial 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 Mother No problems noted. Sister Breast cancer CVD (cardiovascular disease) Paternal Grandmother Breast cancer Paternal Grandfather No problems noted. 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 Alert and oriented. Mood and affect appropriate. Follows and participates in conversation appropriately. Respiratory effort is unlabored. Able to transition from sit to stand unassisted. Results Reviewed Results Reviewed: No imaging is available for review Assessment & Plan Assessment & Plan (1) Chronic knee pain after total replacement of knee joint: Code(s): M25.569 - Pain in unspecified knee; G89.29 - Other chronic pain; Z96.659 - Presence of unspecified artificial knee joint Category: Medical Plan Lead removed with tip intact. Follow-up as needed. Scribed for Dr. Cool by Nay Esparza, medical technologist chief, on 06/17/2024. I, Dr. Cool, have personally reviewed and agree with the information entered by the scribe. Coding Level of Care Code Est Pt Level 3 (84184) Diagnoses Chronic knee pain after total replacement of knee joint M25.569; G89.29; Z9 6.659
== END 2024-06-17 09:19 | disposition home or self-care (01) ==
PROVIDERS: PCP Internal Medicine; Visit Provider Internal Medicine
DX: M25.569 Pain in unspecified knee (principal); G89.29 Other chronic pain; Z96.659 Presence of unspecified artificial knee joint
CPT/HCPCS: 99213

== ENCOUNTER → 2024-06-17 09:02 | Outpatient (BNVA) | payer OTHER, SELFPAY | PROVIDERS: PCP Internal Medicine; Visit Provider Internal Medicine ==

== ENCOUNTER 2024-06-25 09:39 | Outpatient (AMB) | payer OTHER, SELFPAY ==
--- NOTE | 2024-06-25 09:43 | MHC.OFFVIS ---
Intake Visit Reasons: OV-left knee pain-follow up Intake Note: Andra is a 63 year old female who presents to the office today for a follow up for left knee pain. Pt states she is being followed by pain management and states she had a nerve block stimulator put in and since has been removed which she states helped. Pt states she still gets some pain in her knee but states it has gotten better. She denies any fevers or chills. She continues to road ride and go to the [facility] for exercise. The patient reports minimal discomfort in her right knee. Allergies hydromorphone [From DILAUDID] Adverse Reaction (Unknown, Verified 06/25/24 09:44) MAKES ME LOOPY seasonal allergies Allergy (Unknown, Uncoded 06/25/24 09:44) Unknown Medication List - Last Reconciled 06/25/24 by Alexis Martins MD aspirin 81 mg PO DAILY calcium carbonate (Calci-Mix) 500 mg PO DAILY cetirizine (Zyrtec) 10 mg PO DAILY PRN cholecalciferol (vitamin D3) 50 mcg PO DAILY clobetasol 0.05% 1 appl topical BID 2 weeks fluticasone propionate 50 mcg/actuation (Flonase Allergy Relief) 1 spray intranasal DAILY furosemide 20 mg PO DAILY PRN magnesium hydroxide 400 mg PO BEDTIME PRN meclizine 25 mg PO BID PRN montelukast 10 mg PO DAILY 30 days pravastatin 40 mg PO DAILY sumatriptan succinate take 1 tab at onset of headache; if no relief, may repeat 1 tab after at least 2 hrs; max = 2 tabs/24 hrs PO tretinoin 0.1% 1 appl topical BEDTIME turmeric 1,000 mg PO [facility] Medical History (Updated 05/13/24 @ 08:53 by Josiah Jason MD) Osteopenia (~2017) Osteoarthritis of foot, left Obstructive sleep apnea on CPAP (~2011) Mammogram normal Normal colonoscopy PFO with atrial 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 Mother No problems noted. Sister Breast cancer CVD (cardiovascular disease) Paternal Grandmother Breast cancer Paternal Grandfather No problems noted. 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 Cognitive needs: No Hearing needs: No Vision needs: Yes Female Reproductive History Menstrual Age of Menarche: 11 Physical Exam Const Other: Well-nourished well-developed very friendly female awake alert and oriented x3 in no acute distress Extrem Other: Bilateral lower extremity examination shows good capillary refill, no skin lesions noted, normal sensation light touch Left knee examination shows full active extension and flexion 20 degrees with minimal discomfort, her patella tracks well Assessment & Plan Assessment & Plan (1) Left knee pain: Code(s): M25.562 - Pain in left knee Category: Medical Qualifiers: Chronicity: chronic Qualified Code(s): M25.562 - Pain in left knee; G89.29 - Other chronic pain Plan Ms. Lezama continues to do well after undergoing a nerve stimulator procedure by Dr. Cool on her left knee. The patient states that her right knee discomfort is tolerable to her. She will continue with her home exercise program. She will follow up with me on an as-needed basis should her symptoms worsen in any way. Feel free to call me at any time should questions regarding her orthopedic management arise. I spent 21 minutes in reviewing the patient's records and imaging studies, seeing the patient and documenting in the medical record. Coding Level of Care Code Est Pt Level 3 (41580) Diagnoses Chronic pain of left knee M25.562; G89.29 Chronicity: chronic
== END 2024-06-25 10:05 | disposition home or self-care (01) ==
PROVIDERS: PCP Internal Medicine; Visit Provider Orthopaedic Surgery
DX: M25.562 Pain in left knee (principal); G89.29 Other chronic pain
CPT/HCPCS: 99213

== ENCOUNTER → 2024-06-25 09:39 | Outpatient (BNVA) | payer OTHER, SELFPAY | PROVIDERS: PCP Internal Medicine; Visit Provider Orthopaedic Surgery ==

== ENCOUNTER 2024-08-20 10:24 | Outpatient (AMB) | payer MEDICARE, SELFPAY ==
--- NOTE | 2024-08-20 10:30 | MHC.PC.OV ---
Vital Signs 08/20/24 10:32 Height 5 ft 6 in Weight 145 lb BMI 23.4 BP 120/80 Blood Pressure Location Lt brachial Position Sitting Pulse 90 Pulse Source Pulse Oximeter Pulse Oximetry (%) 98 Oxygen Delivery Method Room Air Intake Visit Reasons: UTI, hypothermia Allergies hydromorphone [From DILAUDID] Adverse Reaction (Unknown, Verified 08/20/24 10:36) MAKES ME LOOPY seasonal allergies Allergy (Unknown, Uncoded 08/20/24 10:36) Unknown Medication List - Last Reconciled 08/20/24 by Xenia Gr MD aspirin 81 mg PO DAILY calcium carbonate (Calci-Mix) 500 mg PO DAILY cetirizine (Zyrtec) 10 mg PO DAILY PRN cholecalciferol (vitamin D3) 50 mcg PO DAILY clobetasol 0.05% 1 appl topical BID 2 weeks fluticasone propionate 50 mcg/actuation (Flonase Allergy Relief) 1 spray intranasal DAILY furosemide 20 mg PO DAILY PRN ketoconazole 2% 1 appl topical DAILY magnesium hydroxide 400 mg PO BEDTIME PRN meclizine 25 mg PO BID PRN montelukast 10 mg PO DAILY 30 days pravastatin 40 mg PO DAILY sumatriptan succinate take 1 tab at onset of headache; if no relief, may repeat 1 tab after at least 2 hrs; max = 2 tabs/24 hrs PO tretinoin 0.1% 1 appl topical BEDTIME turmeric 1,000 mg PO Tobacco use date assessed: 08/20/24 Dental Screening Dental Screen Date: 04/24/24 HPI UTI, hypothermia HPI Details Patient presents for the follow-up of urgent care visit for UTI. She completed a course of cefdinir yesterday. Patient denies dysuria but still reports frequent urination. She denies fever chills nausea vomiting back pain. Her son 3 weeks ago in an accident and patient is grieving. She reports insomnia but denies depression. [facility] Medical History (Updated 08/20/24 @ 11:28 by Xenia Gr MD) Osteopenia (~2016) Osteoarthritis of foot, left Obstructive sleep apnea on CPAP (~2011) Mammogram normal Normal colonoscopy PFO with atrial 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 Mother No problems noted. Sister Breast cancer CVD (cardiovascular disease) Paternal Grandmother Breast cancer Paternal Grandfather No problems noted. 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 1. Little interest or pleasure in doing things: not at all 2. Feeling down, depressed, or hopeless: more than half the days 3. Trouble falling or staying asleep, or sleeping too much: several days 4. Feeling tired or having little energy: several days 5. Poor appetite or overeating: not at all 6. Feeling bad about yourself - or that you are a failure or have let yourself or your family down: not at all 7. Trouble concentrating on things, such as reading the newspaper or watching television: not at all 8. Moving or speaking so slowly that other people could have noticed. Or the opposite - being so fidgety or restless that you have been moving around a lot more than usual: not at all 9. Thoughts that you would be better off or of hurting yourself in some way: not at all Total score: 4 Depression Screening Interpretation: Negative Depression Screening Done: Yes 98874 - PHQ-9 Billing: Yes Source: Developed by Drs. Christian Huddleston, Michelle Souza, Keven Belle and colleagues, with an educational sharona from [employer]. Thrive Questionnaire Date Thrive assessed: 08/20/24 I am a: Patient What is your living situation today?: I have a steady place to live Within the past 12 months, did the food you bought not last and you didn't have the money to get more?: Never true Within the past 12 months, did you worry whether your food would run out before you got money to buy more?: Never true Do you have trouble paying for medicines?: No Do you have trouble getting transportation to medical appointments?: No Do you have trouble paying your heating and electricity bill?: No Do you have trouble taking care of your child, family member or friend?: No Do you have trouble with day-to-day activities such as bathing, preparing meals, shopping, managing finances, etc.?: No Are you interested in more education?: No Please select the resources that you would like help with: None Currently or been in a relationship where the following occur: No concerns reported THRIVE Score: 0 AUDIT C Alcohol Use Questionnaire (AUDIT-C) 1. How often do you have a drink containing alcohol?: 2-3 times a week 2. How many drinks containing alcohol do you have on a typical day when you are drinking?: 1 or 2 3. How often do you have six or more drinks on one occasion?: Never Total Score: 3 JAMES-7 AMB Questionnaire JAMES-7 Date JAMES - 7 assessed: 08/20/24 Feeling nervous, anxious, or on edge: 0 = Not at all Not being able to stop or control worryin = Not at all Worrying too much about different things: 0 = Not at all Trouble relaxin = Not at all Being so restless that it is hard to sit still: 0 = Not at all Becoming easily annoyed or irritable: 0 = Not at all Feeling afraid as if something awful might happen: 0 = Not at all Total JAMES-7 score (0-4 normal; 5-9 mild; 10-14 moderate; 15-21 severe): 0 Source: Developed by Drs. Christian Huddleston, Michelle Souza, Keven Belle and colleagues, with an educational sharona from [employer]. JAMES-7 Assessment Billing JAMES-7 Assessment Tool: JAMES-7 Assessment 56506 Review of Systems Const All systems reviewed & are unremarkable except as noted in HPI and below Card Reports no additional complaints Resp Reports no additional complaints GI Reports no additional complaints Reports no additional complaints Physical exam (Primary Care) Vital Signs: Last Vital Signs Pulse 90 08/20/24 10:32 BP 120/80 08/20/24 10:32 Pulse Ox 98 08/20/24 10:32 Oxygen Delivery Method Room Air 08/20/24 10:32 BMI result Body Mass Index 23.4 Tobacco/Smoking Status: Tobacco use Status Tobacco use date assessed 08/20/24 08/20/24 10:38 Patient Tobacco Use Status Former Tobacco user 08/20/24 10:30 e-Cigarette/Vaping Use Never Used 08/20/24 10:30 PHQ-9: PHQ-9 Score PHQ-9: Total score 4 08/20/24 10:38 Depression Screening Interpretation: Negative Thrive Assessment: Date of Thrive Assessment Date Thrive assessed 08/20/24 08/20/24 10:38 Currently or been in a relationship where the following occur: No concerns reported Const General: no acute distress HENMT Head: Yes normal to inspection Resp Effort & Inspection: normal respiratory effort Auscultation: clear to auscultation bilaterally Cardio Rhythm: regular rhythm Heart sounds: S1 normal heart sound present and S2 normal heart sound present GI Inspection: Yes normal to inspection Palpation (GI): Soft to palpation Percussion: Yes normal to percussion Auscultation: normal bowel sounds General: Yes Bimanual renal exam normal bilaterally and Yes no CVA tenderness Back/Spine/Pelvis Back: no CVA tenderness Assessment and Plan Assessment & Plan (1) UTI (urinary tract infection): Code(s): N39.0 - Urinary tract infection, site not specified Plan: Repeat urine culture 1 week after treatment (2) Grieving: Comment: Son in accident in July/2024 Code(s): F43.21 - Adjustment disorder with depressed mood Plan: Patient is in grieving counseling Orders: Orders Urine Culture 1 Week N39.0 - Urinary tract infection, site not specified Medications: New ketoconazole 2% 1 appl topical DAILY 30 grams 0RF Coding Level of Care Code Est Pt Level 3 (06584) Diagnoses UTI (urinary tract infection) N39.0 Grieving F43.21 Additional Codes JAMES-7 Assessment Billing - JAMES-7 Assessment Tool: JAMES-7 Assessment 60851 ([id number])
[2024-08-20 10:32] VITALS: BP 120/80; PULSE 90; O2SAT 98; BMI 23.4
== END 2024-08-20 11:29 | disposition home or self-care (01) ==
PROVIDERS: PCP Internal Medicine; Visit Provider Internal Medicine
DX: N39.0 Urinary tract infection, site not specified (principal); F43.21 Adjustment disorder with depressed mood

== ENCOUNTER → 2024-08-20 10:24 | Outpatient (BNVA) | payer OTHER, SELFPAY | PROVIDERS: PCP Internal Medicine; Visit Provider Internal Medicine | DX: N39.0 Urinary tract infection, site not specified (principal); F43.21 Adjustment disorder with depressed mood | CPT/HCPCS: 96127; 99212 ==

== ENCOUNTER 2024-09-01 06:26 | Outpatient (REF) | payer MEDICARE, SELFPAY | END 2024-09-01 06:27 | disposition home or self-care (01) | LOC: HO.LAB 06:26 | PROVIDERS: PCP Internal Medicine; Visit Provider Internal Medicine | DX: N39.0 Urinary tract infection, site not specified (principal) | CPT/HCPCS: 87086 ==

== ENCOUNTER 2024-09-15 08:53 | Outpatient (AMB) | payer MEDICARE, SELFPAY ==
--- NOTE | 2024-09-15 08:54 | MHC.OFFVIS ---
Intake Visit Reasons: Obstructive sleep apnea Allergies hydromorphone [From DILAUDID] Adverse Reaction (Unknown, Verified 09/15/24 09:08) MAKES ME LOOPY seasonal allergies Allergy (Unknown, Uncoded 09/15/24 09:08) Unknown Medication List - Last Reconciled 09/15/24 by Timoteo Lieberman MD aspirin 81 mg PO DAILY calcium carbonate (Calci-Mix) 500 mg PO DAILY cetirizine (Zyrtec) 10 mg PO DAILY PRN cholecalciferol (vitamin D3) 50 mcg PO DAILY clobetasol 0.05% 1 appl topical BID 2 weeks fluticasone propionate 50 mcg/actuation (Flonase Allergy Relief) 1 spray intranasal DAILY furosemide 20 mg PO DAILY PRN ketoconazole 2% 1 appl topical DAILY magnesium hydroxide 400 mg PO BEDTIME PRN meclizine 25 mg PO BID PRN montelukast 10 mg PO DAILY 30 days pravastatin 40 mg PO DAILY sumatriptan succinate take 1 tab at onset of headache; if no relief, may repeat 1 tab after at least 2 hrs; max = 2 tabs/24 hrs PO tretinoin 0.1% 1 appl topical BEDTIME turmeric 1,000 mg PO Do you need a note to return to daycare/school/sports/work: No HPI HPI Obstructive sleep apnea: Details: This patient is 64 years old female of a thin build, with diagnosis 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 She uses CPAP very regularly every night. In fact she just can not sleep without using the CPAP. With the use of CPAP she sleeps good at least for 6 hours every night and denies any daytime sleepiness. She does have mild nasal congestion during the daytime and uses Zyrtec 10 mg once a day p.r.n. along with Flonase nasal spray daily Also uses montelukast 10 mg daily. Due to recent loss of relatively young son, she somewhat depressed and not eating well so has lost some weight. [facility] Medical History Osteopenia (~2017) Osteoarthritis of foot, left Obstructive sleep apnea on CPAP (~2011) Mammogram normal Normal colonoscopy PFO with atrial 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 Mother No problems noted. Sister Breast cancer CVD (cardiovascular disease) Paternal Grandmother Breast cancer Paternal Grandfather No problems noted. 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 Cognitive needs: No Hearing needs: No Vision needs: Yes Female Reproductive History Menstrual Age of Menarche: 11 Review of Systems Const All systems reviewed & are unremarkable except as noted in HPI and below ENT Reports nasal congestion (intermittent ) Card Denies chest pain, Denies leg edema and Denies dyspnea on exertion Resp Denies cough, Denies dyspnea on exertion and Denies wheezing GI Reports no additional complaints Musc Reports no additional complaints Neuro Reports no additional complaints and Reports Abnormal speech present Psych Reports no additional complaints Endo Reports no additional complaints Aller/Immun Denies wheezing Physical Exam Const Other: TELE VISIT , . SO NO EXAMINATION COMPLETED Neuro Speech: Abnormal speech present Telehealth Telehealth Telehealth Platform: Telephone Location of provider rendering services: practice address Location of patient: address on file Patient Identification confirmed using: Name, : Yes Telehealth method: voice only Patient verbally consented to treatment: Yes Patient verbally consented to billing insurance company: Yes Patient informed of any privacy concerns related to visit: Yes Minutes spent on Phone/Video with Pt.: 20 Results Reviewed Results Reviewed: COMPLIANCE REPORT NOT AVAILABLE HER CPAP DEVICE DOES NOT TRANSMIT THE INFORMATION Assessment & Plan Assessment & Plan (1) Obstructive sleep apnea on CPAP: Onset Date: ~2011 Comment: (EVA since 2011, Compliant with CPAP) SHE SLEEPS OKAY WITH THE CPAP BUT WITHOUT PUTTING ON THE CPAP SHE JUST CAN NOT GO TO SLEEP. Code(s): G47.33 - Obstructive sleep apnea (adult) (pediatric); Z99.89 - Dependence on other enabling machines and devices Category: Medical Plan: COMMENDED FOR GOOD COMPLIANCE AND ADVISED TO CONTINUE USING THE CPAP DAILY, EVERY NIGHT. (2) Allergic rhinitis: Comment: She has had mild intermittent nasal congestion for long time, symptoms relatively controlled with current medical regimen Code(s): J30.9 - Allergic rhinitis, unspecified Category: Medical Plan: Flonase nasal spray 2 spray in each nostril daily Montelukast 10 mg daily. Cetirizine 10 mg once a day as needed. Coding Level of Care Code Tele Est Pt Level 3 (00698) Diagnoses Obstructive sleep apnea on CPAP G47.33; Z99.89 Allergic rhinitis J30.9
== END 2024-09-15 09:50 | disposition home or self-care (01) ==
LOC: HO.HPS 08:53
PROVIDERS: PCP Internal Medicine; Visit Provider Internal Medicine
DX: G47.33 Obstructive sleep apnea (adult) (pediatric) (principal); Z99.89 Dependence on other enabling machines and devices; J30.9 Allergic rhinitis, unspecified
CPT/HCPCS: 99442

== ENCOUNTER → 2024-09-15 08:53 | Outpatient (BNVA) | payer MEDICARE, SELFPAY | PROVIDERS: PCP Internal Medicine; Visit Provider Internal Medicine ==

== ENCOUNTER 2024-10-15 13:21 | Outpatient (REF) | payer MEDICARE, SELFPAY ==
[2024-10-15 16:26] LABS: Alanine Aminotransferase 26 U/L (0-31); Albumin Level 4.3 g/dL (3.5-5.0); Alkaline Phosphatase 100 U/L (39-117); Anion Gap 12 (12-20); Aspartate Amino Transferase 31 U/L (5-31); Bilirubin Total 0.5 mg/dL (0.0-1.0); Blood Urea Nitrogen 16 mg/dL (9-16); Calcium 9.4 mg/dL (8.4-10.2); Carbon Dioxide 27 mmol/L (22-29); Chloride 105 mmol/L (96-108); Cholesterol 186 mg/dL (<200); Estimated Glomerular Filt Rate > 60; Glucose Fasting 94 mg/dL (60-99); HDL Cholesterol 83 mg/dL (>40); LDL Cholesterol Calculated 93 mg/dL (<100); Sodium 139 mmol/L (135-145); Total Protein 7.5 g/dL (6.5-8.0); Triglycerides 52 mg/dL (<150)
== END 2024-10-15 13:22 | disposition home or self-care (01) ==
LOC: HO.LAB 13:21
PROVIDERS: PCP Internal Medicine; Visit Provider Internal Medicine
DX: E78.5 Hyperlipidemia, unspecified (principal)
CPT/HCPCS: 36415; 80053; 80061

== ENCOUNTER 2024-10-20 11:57 | Outpatient (AMB) | payer MEDICARE, SELFPAY ==
[2024-10-20 12:37] VITALS: BP 118/76; PULSE 67; O2SAT 97; BMI 23.1
--- NOTE | 2024-10-20 12:37 | A.OFFPC_ITS ---
Vital Signs 10/20/24 12:37 Height 5 ft 6 in Weight 143 lb BMI 23.1 BP 118/76 Blood Pressure Location Lt brachial Position Sitting Pulse 67 Pulse Source Pulse Oximeter Pulse Oximetry (%) 97 Oxygen Delivery Method Room Air Intake Visit Reasons: anxiety Intake Note: Pt is here today for a sick visit. Pt c/o anxiety and feeling very nauseous. Allergies hydromorphone [From DILAUDID] Adverse Reaction (Unknown, Verified 10/20/24 12:50) MAKES ME LOOPY seasonal allergies Allergy (Unknown, Uncoded 10/20/24 12:50) Unknown Medication List - Last Reconciled 10/20/24 by Xenia Gr MD aspirin 81 mg PO DAILY calcium carbonate (Calci-Mix) 500 mg PO DAILY cetirizine (Zyrtec) 10 mg PO DAILY PRN cholecalciferol (vitamin D3) 50 mcg PO DAILY clobetasol 0.05% 1 appl topical BID 2 weeks fluticasone propionate 50 mcg/actuation (Flonase Allergy Relief) 1 spray intranasal DAILY furosemide 20 mg PO DAILY PRN ketoconazole 2% 1 appl topical DAILY magnesium hydroxide 400 mg PO BEDTIME PRN meclizine 25 mg PO BID PRN montelukast 10 mg PO DAILY pravastatin 40 mg PO DAILY sumatriptan succinate take 1 tab at onset of headache; if no relief, may repeat 1 tab after at least 2 hrs; max = 2 tabs/24 hrs PO tretinoin 0.1% 1 appl topical BEDTIME turmeric 1,000 mg PO Tobacco use date assessed: 08/20/24 Dental Screening Dental Screen Date: 04/24/24 HPI anxiety HPI Details Patient presents for the follow-up. She is grieving her son. Patient complains of feeling of nausea and decreased appetite worse in the morning. She reports getting 4 hours of sleep at night. Patient has been exercising daily walking and attending grief counseling. Patient tried gummies for insomnia and felt slightly better. She denies depression or suicide ideation. 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 Mother No problems noted. Sister Breast cancer CVD (cardiovascular disease) Paternal Grandmother Breast cancer Paternal Grandfather No problems noted. 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 5. Poor appetite or overeating: nearly every day Source: Developed by Drs. Christian Huddleston, Michelle Souza, Keven Belle and colleagues, with an educational sharona from [employer]. Thrive Questionnaire Date Thrive assessed: 08/20/24 I am a: Patient What is your living situation today?: I have a steady place to live Within the past 12 months, did the food you bought not last and you didn't have the money to get more?: Never true Within the past 12 months, did you worry whether your food would run out before you got money to buy more?: Never true Do you have trouble paying for medicines?: No Do you have trouble getting transportation to medical appointments?: No Do you have trouble paying your heating and electricity bill?: No Do you have trouble taking care of your child, family member or friend?: No Do you have trouble with day-to-day activities such as bathing, preparing meals, shopping, managing finances, etc.?: No Are you currently unemployed and looking for a job?: No Are you interested in more education?: No Please select the resources that you would like help with: None Currently or been in a relationship where the following occur: No concerns reported THRIVE Score: 0 JAMES-7 AMB Questionnaire JAMES-7 Date JAMES - 7 assessed: 08/20/24 Source: Developed by Drs. Christian Huddleston, Michelle Souza, Keven Belle and colleagues, with an educational sharona from [employer]. Review of Systems Const All systems reviewed & are unremarkable except as noted in HPI and below ENT Reports no additional complaints Card Reports no additional complaints Resp Reports no additional complaints GI Reports no additional complaints Reports no additional complaints Physical exam (Primary Care) Vital Signs: Last Vital Signs Pulse 67 10/20/24 12:37 BP 118/76 10/20/24 12:37 Pulse Ox 97 10/20/24 12:37 Oxygen Delivery Method Room Air 10/20/24 12:37 BMI result Body Mass Index 23.1 Tobacco/Smoking Status: Tobacco use Status Tobacco use date assessed 08/20/24 10/20/24 12:38 Patient Tobacco Use Status Former Tobacco user 10/20/24 12:38 e-Cigarette/Vaping Use Never Used 10/20/24 12:38 Thrive Assessment: Date of Thrive Assessment Date Thrive assessed 08/20/24 10/20/24 12:38 Currently or been in a relationship where the following occur: No concerns reported HENMT Head: Yes normal to inspection Neck Neck: Yes supple Resp Effort & Inspection: normal respiratory effort Auscultation: clear to auscultation bilaterally Cardio Rhythm: regular rhythm Heart sounds: S1 normal heart sound present and S2 normal heart sound present Coding Level of Care Code Est Pt Level 3 (96981) Diagnoses Grieving F43.21 Assessment & Plan Assessment & Plan (1) Grieving: Comment: Son in accident in July/2024 Code(s): F43.21 - Adjustment disorder with depressed mood Category: Medical Plan: Treatment options including low dose of SSRI discussed with the patient. She is not interested in taking daily medications. Hydroxyzine 10 mg q.h.s. is prescribed to take as needed for insomnia. Patient will continue grieving counseling and follow-up p.r.n.. Medications: New hydroxyzine HCl 10 mg PO BEDTIME 30 tabs 1RF
== END 2024-10-20 13:37 | disposition home or self-care (01) ==
PROVIDERS: PCP Internal Medicine; Visit Provider Internal Medicine
DX: F43.21 Adjustment disorder with depressed mood (principal)

== ENCOUNTER → 2024-10-20 11:57 | Outpatient (BNVA) | payer MEDICARE, SELFPAY | PROVIDERS: PCP Internal Medicine; Visit Provider Internal Medicine | DX: F43.21 Adjustment disorder with depressed mood (principal) | CPT/HCPCS: 99212 ==

== ENCOUNTER 2025-02-22 12:51 | Outpatient (AMB) | payer OTHER, SELFPAY ==
--- NOTE | 2025-02-22 12:56 | MHC.OFFVIS ---
Vital Signs 02/22/25 12:57 Height 5 ft 6 in Weight 139 lb 12.369 oz BMI 22.6 BP 118/70 Blood Pressure Location Lt brachial Position Sitting Pulse 78 Pulse Source Monitor Intake Visit Reasons: 1 year fu Slate Handler Required: No Allergies hydromorphone [From DILAUDID] Adverse Reaction (Unknown, Verified 02/22/25 12:58) MAKES ME LOOPY seasonal allergies Allergy (Unknown, Uncoded 02/22/25 12:58) Unknown Medication List - Last Reconciled 02/22/25 by Maria Ines Alva NP-C aspirin 81 mg PO DAILY calcium carbonate (Calci-Mix) 500 mg PO DAILY cetirizine (Zyrtec) 10 mg PO DAILY PRN cholecalciferol (vitamin D3) 50 mcg PO DAILY clobetasol 0.05% 1 appl topical BID 2 weeks fluticasone propionate 50 mcg/actuation (Flonase Allergy Relief) 1 spray intranasal DAILY furosemide 20 mg PO DAILY PRN ketoconazole 2% 1 appl topical DAILY magnesium hydroxide 400 mg PO BEDTIME PRN meclizine 25 mg PO BID PRN montelukast 10 mg PO DAILY pravastatin 40 mg PO DAILY sumatriptan succinate take 1 tab at onset of headache; if no relief, may repeat 1 tab after at least 2 hrs; max = 2 tabs/24 hrs PO tretinoin 0.1% 1 appl topical BEDTIME turmeric 1,000 mg PO HPI HPI 1 year fu: Details: Andra is a 64-year-old female with past medical history of PFO with septal aneurysm, obstructive sleep apnea with CPAP use, dependent leg edema who presents for follow-up. Today she reports that she has not had any concerning cardiac symptoms in the last year. No chest discomfort or shortness of breath. No neurological changes or symptoms. She has no palpitations, lightheadedness, presyncope, syncope, falls. No PND, orthopnea. She does get some mild chronic intermittent lower leg edema. 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 She is grieving over the loss of her son 07/2024. She has been seeing a grief counselor and exercising routinely. [facility] Medical History Osteopenia (~2016) Osteoarthritis of foot, left Obstructive sleep apnea on CPAP (~2011) Mammogram normal Normal colonoscopy PFO with atrial 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 Mother No problems noted. Sister Breast cancer CVD (cardiovascular disease) Paternal Grandmother Breast cancer Paternal Grandfather No problems noted. 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 Cognitive needs: No Hearing needs: No Vision needs: Yes Female Reproductive History Menstrual Age of Menarche: 11 Review of Systems Const All systems reviewed & are unremarkable except as noted in HPI and below ENT Denies dizziness Card Denies chest pain, Denies chest pain at rest, Denies chest pain with activity, Denies rapid heart rate, Denies pedal edema, Denies edema, Denies leg edema, Denies lightheadedness, Denies palpitations, Denies dyspnea, Denies dyspnea on exertion and Denies orthopnea Resp Denies cough, Denies dyspnea and Denies dyspnea on exertion GI Denies hematochezia and Denies change in stool character Musc Denies abnormal gait, Denies limited range of motion, Denies muscle cramps, Denies muscle weakness, Denies numbness, Denies radiating pain into limb, Denies stiffness and Denies tingling Neuro Denies abnormal gait, Denies dizziness, Denies numbness and Denies tingling Endo Denies palpitations Physical Exam Vital Signs: BMI result Body Mass Index 22.6 Const General: cooperative, healthy appearing, comfortable and no acute distress Orientation/consciousness: patient oriented x3 Neck Neck: Yes normal visual inspection Resp Effort & Inspection: normal respiratory effort Auscultation: clear to auscultation bilaterally, no crackles, no rales, no rhonchi and no wheezes Cardio Rate: regular rate Rhythm: regular rhythm Heart sounds: S1 normal heart sound present, S2 normal heart sound present, no gallops, no murmurs and no rubs Neuro General: patient oriented x3 Extrem General: Yes normal to inspection and No no pedal edema Psych Appearance: grossly normal Mental Status: mental status grossly normal Speech and movement: Normal speech and movement present Office Procedures EKG Details: Today, read by me, SR, rate 78, Qtc 414ms. [id number], Complete Assessment & Plan Assessment & Plan (1) PFO with atrial septal aneurysm: Comment: (Incidental finding on echo in 2016 - known to Dr. Villagomez) Code(s): Q21.1 - Atrial septal defect Category: Medical Plan: History of echocardiogram in 2016 showing PFO and atrial septal aneurysm. She has not had any known neurological events. She has been on aspirin 81 mg daily and tolerates it without symptoms. Last Echocardiogram done 02/26/2023 shows EF 66%, mildly calcific aortic valve, mild MR, mild TR, septal aneurysm noted. She is concerned about her heart function. Will update echocardiogram to evaluate for any changes. Plan to call her with results. Continue current management. Cardiology follow-up 1 year, sooner if needed. (2) Leg edema: Code(s): R60.0 - Localized edema Category: Medical Plan: Chronic issues with dependant ankle edema. She has had p.r.n. Lasix that she can use if swelling increases. Recommended use of compression stockings when on her feet for prolonged periods. Likely has some venous insufficiency. Plan Time spent on chart review, documentation, interview and assessment Orders: Orders CA echo transthoracic complete Today Q21.1 - Atrial septal defect Coding Level of Care Code Est Pt Level 3 (47917) Complex EM visit Add On G2211 Diagnoses PFO with atrial septal aneurysm Q21.1 Leg edema R60.0 CPT Codes EKG - CPT: 42851-[id number], Complete ([id number]) Time Spent (min) 24
[2025-02-22 12:57] VITALS: BP 118/70; PULSE 78; BMI 22.6
== END 2025-02-22 13:34 | disposition home or self-care (01) ==
LOC: HO.HCS 12:52
PROVIDERS: PCP Internal Medicine; Visit Provider Nurse Practitioner Family
DX: Q21.10 Atrial septal defect, unspecified (principal); R60.0 Localized edema
CPT/HCPCS: 93010; 99213

== ENCOUNTER → 2025-02-22 12:51 | Outpatient (BNVA) | payer OTHER, SELFPAY | PROVIDERS: PCP Internal Medicine; Visit Provider Nurse Practitioner Family | DX: Q21.10 Atrial septal defect, unspecified (principal); R60.0 Localized edema; G47.33 Obstructive sleep apnea (adult) (pediatric); Z99.89 Dependence on other enabling machines and devices | CPT/HCPCS: 93005 ==

== ENCOUNTER 2025-03-11 13:50 | Outpatient (AMB) | payer MEDICARE, SELFPAY ==
[2025-03-11 13:56] VITALS: BP 102/60; PULSE 76; O2SAT 99; BMI 22.6
--- NOTE | 2025-03-11 13:56 | A.OFFVIS_ITS ---
Vital Signs 03/11/25 13:56 Height 5 ft 6 in Weight 139 lb 15.896 oz BMI 22.6 BP 102/60 Blood Pressure Location Lt brachial Position Sitting Pulse 76 Pulse Source Pulse Oximeter Pulse Oximetry (%) 99 Oxygen Delivery Method Room Air Intake Visit Reasons: Obstructive sleep apnea Intake Note: pt is here for follow up and states she is doing okay with cpap, but she does notice she does not get into deep sleep. Mobile Lounge Driver Required: No Allergies hydromorphone [From DILAUDID] Adverse Reaction (Unknown, Verified 03/11/25 14:26) MAKES ME LOOPY seasonal allergies Allergy (Unknown, Uncoded 03/11/25 14:26) Unknown Medication List - Last Reconciled 03/11/25 by Timoteo Lieberman MD aspirin 81 mg PO DAILY calcium carbonate (Calci-Mix) 500 mg PO DAILY cetirizine (Zyrtec) 10 mg PO DAILY PRN cholecalciferol (vitamin D3) 50 mcg PO DAILY clobetasol 0.05% 1 appl topical BID 2 weeks fluticasone propionate 50 mcg/actuation (Flonase Allergy Relief) 1 spray intranasal DAILY furosemide 20 mg PO DAILY PRN ketoconazole 2% 1 appl topical DAILY magnesium hydroxide 400 mg PO BEDTIME PRN meclizine 25 mg PO BID PRN montelukast 10 mg PO DAILY pravastatin 40 mg PO DAILY sumatriptan succinate take 1 tab at onset of headache; if no relief, may repeat 1 tab after at least 2 hrs; max = 2 tabs/24 hrs PO tretinoin 0.1% 1 appl topical BEDTIME turmeric 1,000 mg PO Do you need a note to return to daycare/school/sports/work: No HPI HPI Obstructive sleep apnea: Details: THIS PATIENT IS 64 YEARS OLD, NOW RETIRED,, COMES FOR FOLLOW-UP FOR HER SLEEP APNEA AND USE OF CPAP. 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 THIS IS A PERMANENT DEFECT AND SHE IS GOING TO NEED CPAP FOR EVER. SHE IS VERY DEPENDENT ON USING THE CPAP AND WITHOUT THAT SHE WILL HAVE HARD TIME TO SLEEP. SO SHE IS VERY COMPLIANT USING AT LEAST FOR 6 HOURS EVERY NIGHT, SOMETIMES SHE FALLS ASLEEP DURING THE DAYTIME AND SHE CAN NOTICE THAT HER SLEEP IS NOT THAT GOOD. SHE HAD LOST HER SON AND IS STILL GRIEVING, IT HAS AFFECTED HER SLEEP PATTERN. HAS DIFFICULTY IN FALLING ASLEEP, AND WAKES UP A FEW TIMES DURING THE NIGHT. PATIENT IS GOING FOR MENTAL COUNSELING, SHE REMAINS ACTIVE, AND VACATIONS FREQUENTLY WITH HER . SHE ALSO HAS CHRONIC ALLERGIC RHINITIS WHICH IS CONTROLLED WITH MONTELUKAST, P.R.N. USE OF ZYRTEC, AND FLONASE. 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 Mother No problems noted. Sister Breast cancer CVD (cardiovascular disease) Paternal Grandmother Breast cancer Paternal Grandfather No problems noted. 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 Cognitive needs: No Hearing needs: No Vision needs: Yes Female Reproductive History Menstrual Age of Menarche: 11 Review of Systems Const All systems reviewed & are unremarkable except as noted in HPI and below ENT Reports nasal congestion (intermittent ) Card Denies chest pain, Denies leg edema and Denies dyspnea on exertion Resp Denies cough, Denies dyspnea on exertion and Denies wheezing GI Reports no additional complaints Musc Reports no additional complaints Neuro Reports no additional complaints and Reports Abnormal speech present Psych Reports no additional complaints Endo Reports no additional complaints Aller/Immun Denies wheezing Physical Exam Vital Signs: Last Vital Signs Pulse 76 03/11/25 13:56 BP 102/60 03/11/25 13:56 Pulse Ox 99 03/11/25 13:56 Oxygen Delivery Method Room Air 03/11/25 13:56 BMI result Body Mass Index 22.6 Const General: healthy appearing, comfortable, no acute distress, alert and awake Orientation/consciousness: patient oriented x3 HEENT Head: Yes normal to inspection General nose exam: No nasal polyps present and No nasal discharge present Face and sinus: Yes sinuses nontender Mouth: oropharynx normal Throat: Yes posterior oropharynx normal Eyes General: appearance normal, both eyes and all related structures Neck Neck: Yes normal visual inspection, Yes no lymphadenopathy, Yes trachea midline and Yes no JVD Thyroid: Thyroid normal Chest Chest palpation & inspection: normal inspection of the chest and normal palpation of entire chest wall Resp Effort & Inspection: normal respiratory effort Auscultation: no crackles and no wheezes Cardio Palpation: normal PMI Rate: regular rate Rhythm: regular rhythm Heart sounds: no gallops and no murmurs Peripheral pulses: Peripheral pulses 2+ throughout GI Palpation (GI): Soft to palpation, nontender, No hepatosplenomegaly present and no masses Auscultation: normal bowel sounds Back/Spine/Pelvis Thoracic/Lumbar Spine: thoracic and lumbar spine normal to inspection Skin General skin exam: no rashes or lesions noted Neuro General: patient oriented x3 and no focal motor deficits Cranial nerves: Yes CN's II-XII intact bilaterally Speech: Abnormal speech present Extrem General: Yes normal to inspection, Yes no clubbing, cyanosis or edema, Yes no calf tenderness and No venous stasis dermatitis Psych Speech and movement: Normal speech and movement present Results Reviewed Results Reviewed: COMPLIANCE REPORT NOT AVAILABLE HOWEVER SHE STATES THAT SHE USES CPAP REGULARLY EVERY NIGHT AND AT LEAST FOR 6 HOURS PER NIGHT. Assessment & Plan Assessment & Plan (1) Obstructive sleep apnea on CPAP: Onset Date: ~2011 Comment: (EVA since 2011, Compliant with CPAP) SHE SLEEPS OKAY WITH THE CPAP BUT WITHOUT PUTTING ON THE CPAP SHE JUST CAN NOT GO TO SLEEP. LATELY HER SLEEP IS SOMEWHAT LIGHT, AND WAKES UP A FEW TIMES DURING THE NIGHT, AND THIS IS RELATED TO ONGOING ANXIETY WITH MILD DEPRESSION OF AFTER HER SON . Code(s): G47.33 - Obstructive sleep apnea (adult) (pediatric); Z99.89 - Dependence on other enabling machines and devices Category: Medical Plan: COMMENDED FOR GOOD COMPLIANCE AND ADVISED TO KEEP ON USING CPAP EVERY NIGHT. IF SHE HAS NEED TO TAKE A NAP DURING THE DAYTIME SHE CAN USE THE CPAP DURING DAYTIME WELL. ,CONTINUE COUNSELING RELAXING EXERCISES ARE EXPLAINED. MAY USE SLEEP PROMOTING, HERBAL TEA OR OTHER AGENTS. (2) Allergic rhinitis: Comment: She has had mild intermittent nasal congestion for long time, symptoms relatively controlled with current medical regimen Code(s): J30.9 - Allergic rhinitis, unspecified Category: Medical Plan: CONTINUE USING MONTELUKAST 10 MG DAILY USE ZYRTEC 10 MG ONCE A DAY P.R.N., FLONASE 1 SPRAY EACH NOSTRIL ONCE OR TWICE A DAY P.R.N.. Coding Level of Care Code Est Pt Level 3 (82309) Diagnoses Obstructive sleep apnea on CPAP G47.33; Z99.89 Allergic rhinitis J30.9
--- OUTSIDE RECORDS SUMMARY | 2025-03-11 16:45 | XMS_ITS ---
Author Organization [facility] Address [address] [place] [address] Care Team Providers Care Service Parts Driver Name Role Phone Xenia Gr MD Primary Care Provider Faiza Long [phone] Encounters Encounter Location Date Provider Diagnosis [facility] [address] [place] [address] 12/07/2024 Faiza Gifford Plan Of Treatment No Information Progress Notes * Andra MORRIS LDOB: (64 yo F)Acc No.[id number]:12/07/2024 Progress Notes Patient:?Andra MORRIS Provider:?Faiza Gifford DPM :1960???Age:64 Y???Sex:Female D ate:12/07/2024 [address] [address] [place] [place] Pcp:Xenia Gr MD Subjective: * Chief Complaints: * ??? * Medical History:? Objective: * Vitals:? Assessment: Plan: * Treatment: * Images: * The named appointment provid er may or may not be the originator of this progress note, and it is not deemed complete until electronically signed by the appointment provider. Sign off status: Pending * Provider:?Faiza Gifford DPM Date:?2024 Generated for Tainai lisa/Silvia/eTransmitting on:?03/11/2025 04:45 PM EDT
--- OUTSIDE RECORDS SUMMARY | 2025-03-11 16:45 | XMS_ITS | Patient Health Record ---
Author Organization [facility] Address [address] [facility] [place] [address] Care Team Providers Care Timber Faller Name Role Phone Xenia Gr MD Primary Care Provider Unavaila Faiza Dailey Unavailable [phone] Allergies No Known Allergies Reason For Referral No Information Medications Medication SIG (Take, Route, Frequency, Duration) Notes Start Date End Date Status Imitrex 50 MG Orally PRN Active Aspirin 81 MG 1 tablet Orally Once a day for 30 day(s) Active CeleXA Not-Taking Vitamin D3 2000 UNIT Orally Once a day Active oxyCODONE HCl 5 MG 1 tablet as needed Orally every 6 hrs for 5 days 09/23/2020 Not-Taking Ciclopirox Olamine 0.77% external Apply to effected areas twice a day for 30 days 07/21/2020 Active Calcium 600 MG 1 tablet with meals Orally Twice a day for 30 day(s) Not-Taking Work Note . . . Patient to start full/complete light duty 2 weeks prior to foot surgery 06/12/2021 Active Ciclopirox Olamine 0.77 % 1 application to affected area Externally to feet Twice a day for 30 days Active predniSONE 10 MG 1 tablet with food o r milk Orally Once a day for 30 day(s) Not-Taking Calcium 600 MG 1 tablet with meals Orally Twice a day for 30 day(s) Active Custom Orthotics as directed 02/24/2021 Active Work Note . . . 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 . . 2-3x/week for 3- 4 weeks 11/18/2020 Active Turmeric Active predniSONE 10 MG 1 tablet with food o r milk Orally Once a day for 30 day(s) Not-Taking Immunizations Vaccine Route Administration Date Status Comme nts COVID-19 Pfizer BioNTech Vaccine Unknown 11/22/2020 Administered Second Dose Social History Tobacco Use: Social History Observation Description Date Details (start date - stop date) Never Smoker NA - NA Tobacco Use/Smoking Question Answer Notes Are you a: nonsmoker Additional Findings: Tobacco Non-User Current no n-smoker Alcohol Screen Question Answer Notes Did you have a drink contain ing alcohol in the past year? Yes How often did you have a dri nk containing alcohol in the past year? 2 to 4 times a month (2 points) Points 2 Interpretation Negative Tobacco use other than smoking: Question Answer Notes Are you an other tobacco user? No Problems Problem Type SNOMED Code ICD Code Onset Dates Problem Status W/U Status Risk Notes Problem Localized, primary osteoarthritis of the ankle and/or foot (291603357) Primary osteoarthritis, right ankle and foot (M19.071) Active confirmed Problem Localized, primary osteoarthritis of the ankle and/or foot (264689710) Primary osteoarthritis, left ankle and foot (M19.072) Active confirmed Problem Acquired hallux valgus (74350368) Hallux valgus (acquired), right foot (M20.11) Active confirmed Problem Contracture, right foot (M24.574) Active confirmed Problem Acquired hammer toe of right foot (4534530767680099) Other hammer toe(s) (acquired), right foot (M20.41) Active confirmed Problem Acquired deformity of right foot (47406573123588604 ) PlantarFlexion of metatarsal of right foot (M21.6X1) Active confirmed Problem 231480730373702 Complex regional pain syndrome type 1 of right lower extremity (G90.521) Active confirmed Problem 778379854 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) Active confirmed Encounters Encounter Location Date Provider Diagnosis [facility] [address] [place] [address] 11/16/2024 Faiza Gifford Plan Of Treatment Pending Test Test Name Order Date X ray : Foot, left 2V 06/03/2012 X ray : Foot, right 2V 06/03/2012 X ray : Foot, left 3V 09/26/2011 X ray : Foot, left 3V 01/04/2015 X ray : Foot, left 3V 09/19/2015 X ray : Foot, left 3V 09/06/2015 X ray : Foot, right 3V 04/14/2021 X ray : Foot, right 3V 09/06/2015 X ray : Foot, right 3V 10/14/2020 X ray : Foot, right 3V 10/21/2020 X ray : Foot, right 3V 11/01/2020 X ray : Foot, right 3V 11/18/2020 X ray : Foot, right 3V 01/25/2021 X ray : Foot, right 3V 09/19/2015 98680-Bxhj Destruction, 1-14 04/19/2017 66856-Nfoz Destruction, 1-14 01/02/2018 08592-Ribr Destruction, 1-14 01/04/2015 29023-Ighn Destruction, 1-14 04/06/2013 60065-Evbx Destruction, 1-14 03/23/2014 60207- Debride <25 sq cm 03/23/2014 04641- Debride <25 sq cm 05/28/2012 20125- Debride <25 sq cm 01/04/2015 91226, R5561-CLFKE/INJECT, JOINT/BURSA 0 01/04/201505786, E9842-ZLWTY/INJECT, JOINT/BURSA 1 00, S8130-PWNGU/INJECT, JOINT/BURSA 0 03/23/201426004, R6184-NKVCX/INJECT, JOINT/BURSA 0 02/24/2021- Ganglion Cyst Injection/Aspiratio n 06/03/2012 Insurance Providers Payer Name Payer Address Payer Phone Subscriber Number Group Number Insured Name Patient Relationship to Insured Coverage Start Date Coverage End Date Medicare National Govt Sv[employer] [address] [place] [address] [id number] Lise Andra Self - patient is the insured [facility] [address] [place] [address] [id number] Lise Andra Self - patient is the insured Medical (General) History Medical History History ICD Code back, hip, knee pain Surgical History Surgery Date(Month/Year) hysterectomy 2005 Bilateral knee replacement left foot surgery 02/01/2015
--- OUTSIDE RECORDS SUMMARY | 2025-03-11 16:45 | XMS_ITS | Patient Health Record ---
Author Organization [facility] Address [address] [place] [address] Care Team Providers Care Electronic Coils Supervisor Name Role Phone Xenia Gr MD Primary Care Provider Christian Roy Unavailable [phone] Allergies No Known Allergies Reason For Referral No Information Medications Medication SIG (Take, Route, Frequency, Duration) Notes Start Date End Date Status Turmeric Curcumin 500 MG 2 Orally QD Active Lactulose 20 GM/30ML 15 ml Orally Once a day PRN constipation Active Aspir-81 81 MG 1 tablet Orally Once a day Active Lasix 20 MG 1 tablet Orally Twice a week Active Calcium Active Premarin 0.625 MG/GM Vaginal Active ZyrTEC 10 MG 1 tablet Orally Once a day for 30 day(s) Active Vitamin D 1000 UNIT 1 tablet Orally Once a day for 30 day(s) Active Immunizations Vaccine Route Administration Date Status Comme nts Influenza Unknown 10/18/2021 Administered Social History Tobacco Use: Social History Observation Description Date Details (start date - stop date) Never Smoker NA - NA Tobacco Use/Smoking Question Answer Notes Patient is a nonsmoker Alcohol Screen Question Answer Notes Did you have a drink contain ing alcohol in the past year? Yes How often did you have a dri nk containing alcohol in the past year? 2 to 4 times a month (2 points) How many drinks did you have on a typical day when you were drinking in the past year? 1 or 2 drinks (0 point) How often did you have 6 or more drinks on one occasion in the past year? Never (0 point) Points 2 Interpretation Negative Section Notes: She does not smoke nor use a ny significant amounts of alcohol She does not smoke nor use a ny significant amounts of alcohol Problems Problem Type SNOMED Code ICD Code Onset Dates Problem Status W/U Status Risk Notes Problem 22134388 Rectal bleeding (K62.5) Active confirmed Problem 358505480 Encounter for screening for malignant neoplasm of colon (Z12.11) Active confirmed Problem 837667264 Other constipati on (K59.09) Active confirmed Problem History of gastrointestinal tract bypass (062101536) Intestinal bypass and anastomosis status (Z98.0) Active confirmed Problem 971540449 Abnormal CT scan , gastrointestinal tract (R93.3) Active confirmed Problem 0224637975386 Family history o f colorectal cancer (Z80.0) Active confirmed Problem 48273768 Acute colitis (K52.9) Active confirmed Problem 47961102 Incontinence of feces, unspecified fecal incontinence type (R15.9) Active confirmed Plan Of Treatment Pending Test Test Name Order Date CBC w DIFF 11/15/2021 Future Test Test Name Order Date COLONOSCOPY 06/18/2017 COLONOSCOPY 11/15/2021 Insurance Providers Payer Name Payer Address Payer Phone Subscriber Number Group Number Insured Name Patient Relationship to Insured Coverage Start Date Coverage End Date [employer] [place] [address] [address] [place] [address] [id number] MIKEY MORRIS Self - patient is the insured Medical (General) History Medical History History ICD Code Denies [place],DM,CVA,Lung disease,renal dise ase Negative colonoscopy in 2009 Takes Lasix for LE edema Sleep apnea--uses CPAP EGD in 2005--small HH, chilango l duodenal and gastric biopsies, negative Espinal's Chronic constipation with surgery as bel ow Negative colonoscopy in 09/2017 Patent foramen ovale-sees Dr. Villagomez Surgical History Surgery Date(Month/Year) Left knee replacement 2011 Right knee replacement 2011 NAMITA Bladder suspension Sigmoid resection for chroni c constipation and rectal prolapse--Dr. Campos Right foot surgery
--- OUTSIDE RECORDS SUMMARY | 2025-03-11 16:46 | XMS_ITS ---
Author Organization [facility] Address [address] [place] [address] Care Team Providers Care Hydraulic Spinner Name Role Phone Xenia Gr MD Primary Care Provider Unavaila chandana Black, Faiza Unavailable [phone] REASON FOR VISIT Cancel O/N apt 12/07/24 Encounters Encounter Location Date Provider Diagnosis [facility] [address] [place] [address] 11/16/2024 Faiza Black Plan Of Treatment No Information Progress Notes * Andra LEZAMA LDOB: 9 (64 yo F)Acc No.[id number]:11/16/2024 Patient:?Andra LEZAMA :1960???Age:64 Y???Sex:Female Address:[place], [address] * true * Date:? Generated for Printi lisa/Silvia/eTransmitting on:?03/11/2025 04:45 PM EDT
== END 2025-03-11 14:29 | disposition home or self-care (01) ==
LOC: HO.HPS 13:51
PROVIDERS: PCP Internal Medicine; Visit Provider Internal Medicine
DX: G47.33 Obstructive sleep apnea (adult) (pediatric) (principal); Z99.89 Dependence on other enabling machines and devices; J30.9 Allergic rhinitis, unspecified
CPT/HCPCS: 99213

== ENCOUNTER → 2025-03-11 13:50 | Outpatient (BNVA) | payer MEDICARE, SELFPAY | PROVIDERS: PCP Internal Medicine; Visit Provider Internal Medicine | DX: G47.33 Obstructive sleep apnea (adult) (pediatric) (principal); J30.9 Allergic rhinitis, unspecified; Z99.89 Dependence on other enabling machines and devices | CPT/HCPCS: 99212 ==

== ENCOUNTER → 2025-03-16 12:55 | Outpatient (REF) | payer MEDICARE, SELFPAY ==
--- NOTE | 2025-03-16 13:09 | CA_ITS ---
Transthoracic Echocardiogram Patient (Last, First, Middle): Andra Lezama L Gender: Female Date of : 1960 Age: 64 Procedure Date: 03/16/2025 Procedure Type: Transthoracic Echocardiogram Location: OP Height: 167.64 cm Weight: 62.6 kg BSA: 1.71 m2 Heart Rate: bpm BP: 110 / 70 mmHg Data Integrity Specialist: TO Referring MD: Maria Ines Alva NP-Maribel Christian Education Director: Micky Mcmanus MD Symptoms: Q21.1 - Atrial septal defect Study Quality: Adequate ECG Rhythm: Sinus with extra beats Conclusions: - 1. Normal LV ejection fraction of 60 65% 2. Intra-atrial septal aneurysm with small PFO 3. Mild aortic and mitral regurgitation 4. Upper limits of normal ascending aortic size 5. No gross pericardial effusion Findings Left Ventricle Normal left ventricular size, thickness, and systolic function. The visually estimated ejection fraction is between 60-65%. Spectral Doppler is indicative of a normal filling pattern. Right Ventricle Normal right ventricular cavity size and systolic function. Atria Both atria are normal in size. There is an interatrial septal aneurysm seen bowing to the right. Contrast study for right to left shunting is mildly positive. Contrast study for right to left shunting is mildly positive with Valsalva maneuver. Patent foramen ovale detected using by color Doppler and contrast. Positive bubble study. Aortic Valve Normal aortic valve structure and function. There is no aortic valve stenosis. There is mild aortic valve regurgitation. Mitral Valve Normal mitral valve structure and function. There is mild mitral valve regurgitation. There is no mitral valve stenosis. Pulmonic Valve The pulmonic valve is likely normal. There is trace pulmonic valve regurgitation. Tricuspid Valve Normal tricuspid valve structure. There is trace tricuspid valve regurgitation. The right ventricular systolic pressure is normal. The right ventricular systolic pressure is 26 mmHg. Normal right atrial pressure. There is no evidence of pulmonary hypertension. Great Vessels The pulmonary artery was not well visualized. Venous The inferior vena cava is normal in size and collapses greater than 50% with inspiration. Pericardium/Pleural There is no evidence of pericardial effusion. Prior Study Comparison Changes noted compared to prior study dated: 02/26/2023. mild aortic regurgitation noted Measurements 2D Linear Measurements IVSd: 0.92 0.6-0.9/0.6-1.0 cm LVIDd: 4.33 3.9-5.3/4.2-5.9 cm LVIDd Index: 2.53 2.4-3.2/2.2-3.1 cm/m2 LVIDs: 3.46 2.0-3.6 cm LVPWd: 0.74 0.7-1.1 cm LA Diam: 3.10 2.7-3.8/3.0-4.0 cm LAIDs Index: 1.81 1.5-2.3 cm/m2 LV Mass: 139.31 67-162/88-224 g LV Mass Index: 81.47 43-95/49-115 g/m2 LVOT Diam: 2.00 3.0+(-)1.3 cm 2D Systolic Function EF 4C: 60.00 >55% EF 2C: 62.00 >55% EF BiP: 61.70 >55% Mitral Valve MV Pk E: 1.04 MV PK A: 0.54 MV Decel Time: 172.00 E/A: 1.90 E'Lateral: 9.79 E'Medial: 5.44 E/E' Med: 19.10 E/E' Lat: 10.60 PHT: 50.00 MVA PHT: 4.40 Decel [place]: 6.07 Aortic Valve AoV Pk Juan Antonio: 1.46 AoV Mn Juan Antonio: 1.15 AoV VTI: 0.33 AoV Pk Grad: 9.00 Aov Mn Grad: 6.00 JODI Cont.VTI: 2.73 LVOT LVOT Pk Juan Antonio: 1.44 LVOT Mn Juan Antonio: 0.85 LVOT VTI: 0.29 LVOT Pk Grad: 8.00 LVOT Mn Grad: 4.00 LVOT Diam: 2.00 LVOT Area: 3.14 Diastolic Function MV Pk E: 1.04 MV Pk A: 0.54 E/A: 1.90 E'Medial: 5.44 E/E' Med: 19.10 E' Laterial: 9.79 E/E' Lat: 10.60 Right Ventricle TAPSE (mm): 26.90 TVS' Juan Antonio: 13.40 Tricuspid Valve TR Pk Juan Antonio: 2.40 TR Pk Grad: 23.00 RA Press: 3.00 RVSP: 26.00 Great Vessels Aorta Sinus of Valsalva: 3.48 2.0-3.5 cm Ao Asc: 3.50 2.1-3.4 cm Updated in Other Vendor System with Status of Final Micky Mcmanus MD electronically signed on 03/17/2025 11:54:04 AM with status of Final
--- OUTSIDE RECORDS SUMMARY | 2025-03-16 15:57 | XMS_ITS ---
Author Organization [facility] Address [address] [place] [address] Care Team Providers Care Chrome Cleaner Name Role Phone Xenia Gr MD Primary Care Provider Unavaila chandana Black, Faiza Unavailable [phone] REASON FOR VISIT Cancel O/N apt 12/07/24 Encounters Encounter Location Date Provider Diagnosis [facility] [address] [place] [address] 11/16/2024 Faiza Black Plan Of Treatment No Information Progress Notes * Andra LEZAMA LDOB: 9 (64 yo F)Acc No.[id number]:11/16/2024 Patient:?Andra LEZAMA :1960???Age:64 Y???Sex:Female Address:[place], [address] * true * Date:? Generated for Printi lisa/Silvia/eTransmitting on:?03/16/2025 03:56 PM EDT
--- OUTSIDE RECORDS SUMMARY | 2025-03-16 15:57 | XMS_ITS | Patient Health Record ---
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 [...] primary osteoarthritis of the ankle and/or foot (881326310) Primary osteoarthritis, right ankle and foot (M19.071) Active confirmed Problem Localized, primary osteoarthritis of the ankle and/or foot (437508338) Primary osteoarthritis, left ankle and foot (M19.072) Active confirmed Problem Acquired hallux valgus (74635476) Hallux valgus (acquired), right foot (M20.11) Active confirmed Problem Contracture, right foot (M24.574) Active confirmed Problem Acquired hammer toe of right foot (6682433361743317) Other hammer toe(s) (acquired), right foot (M20.41) Active confirmed Problem Acquired deformity of right foot (77061893625668393 ) PlantarFlexion of metatarsal of right foot (M21.6X1) Active confirmed Problem 517400100463110 Complex regional pain syndrome type 1 of right lower extremity (G90.521) Active confirmed Problem 851031548 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) Active confirmed Encounters Encounter Location Date Provider Diagnosis [facility] [address] [place] [address] 11/16/2024 Faiza Gifford Plan Of Treatment Pending [...] X ray : Foot, right 3V 09/19/2015 93030-Znef Destruction, 1-14 04/19/2017 85799-Iuva Destruction, 1-14 01/02/2018 19874-Kqpx Destruction, 1-14 01/04/2015 95301-Pemq Destruction, 1-14 04/06/2013 36765-Vkhk Destruction, 1-14 03/23/2014 79726- Debride <25 sq cm 03/23/2014 02043- Debride <25 sq cm 05/28/2012 68063- Debride <25 sq cm 01/04/2015 99705, I8843-MGGCC/INJECT, JOINT/BURSA 0 01/04/201500680, I6450-JAFIY/INJECT, JOINT/BURSA 1 00, S3058-ABWIY/INJECT, JOINT/BURSA 0 03/23/201470572, S5935-CLSRU/INJECT, JOINT/BURSA 0 02/24/2021- Ganglion Cyst Injection/Aspiratio n 06/03/2012 Insurance Providers Payer Name Payer Address Payer Phone Subscriber Number Group Number Insured Name Patient Relationship to Insured Coverage Start Date Coverage End Date Medicare National Govt Svcs Inc [address] [place] [address] [id number] Lise Andra Self - patient is the insured [facility] [address] [place] [address] [phone] [id number] Lise Andra Self - patient is the insured Medical (General) History Medical History History ICD Code back, hip, knee pain Surgical History Surgery Date(Month/Year) hysterectomy 2005 Bilateral knee replacement left foot surgery 02/01/2015
--- OUTSIDE RECORDS SUMMARY | 2025-03-16 15:57 | XMS_ITS | Patient Health Record ---
Author Organization [facility] Address [address] [place] [address] Care Team Providers Care Music Promoter Name Role Phone Xenia Gr MD Primary Care Provider Christian Roy Unavailable [phone] Allergies No Known Allergies Reason For Referral [...] Problem Status W/U Status Risk Notes Problem 32774404 Rectal bleeding (K62.5) Active confirmed Problem 643751847 Encounter for screening for malignant neoplasm of colon (Z12.11) Active confirmed Problem 470815165 Other constipati on (K59.09) Active confirmed Problem History of gastrointestinal tract bypass (026377061) Intestinal bypass and anastomosis status (Z98.0) Active confirmed Problem 560848272 Abnormal CT scan , gastrointestinal tract (R93.3) Active confirmed Problem 6950074849780 Family history o f colorectal cancer (Z80.0) Active confirmed Problem 69332627 Acute colitis (K52.9) Active confirmed Problem 67588200 Incontinence of feces, unspecified fecal incontinence type [...] [employer] [place] [address] [address] [place] [address] [id number] MIKEY LEZAMA Self - patient is the insured Medical (General) History Medical History History ICD Code Denies [place],DM,CVA,Lung disease,renal dise ase Negative colonoscopy in 2009 [...]
--- OUTSIDE RECORDS SUMMARY | 2025-03-16 15:57 | XMS_ITS ---
Author Organization [facility] Address [address] [place] [address] Care Team Providers Care Breast Splitter Name Role Phone Xenia Gr MD Primary Care Provider Faiza Long [phone] Encounters Encounter Location Date Provider Diagnosis [facility] [address] [place] [address] 12/07/2024 Faiza Gifford Plan Of Treatment No Information Progress Notes * Andra MORRIS LDOB: (64 yo F)Acc No.[id number]:12/07/2024 Progress Notes Patient:?Andra MORRIS Provider:?Faiza Gifford DPM :1960???Age:64 Y???Sex:Female D ate:12/07/2024 [facility] [address] [place] Pcp:Xenia Gr MD Subjective: * Chief [...] Gifford DPM Date:?2024 Generated for Tainai lisa/Silvia/eTransmitting on:?03/16/2025 03:56 PM EDT
== END ==
LOC: HO.CARD 12:55
PROVIDERS: PCP Internal Medicine; Visit Provider Nurse Practitioner Family
DX: Q21.10 Atrial septal defect, unspecified (principal)
CPT/HCPCS: 93306

== ENCOUNTER → 2025-03-16 13:09 | Outpatient (BNV) | payer MEDICARE, SELFPAY | PROVIDERS: PCP Internal Medicine; Visit Provider Internal Medicine Cardiovascular Disease | DX: Q21.12 Patent foramen ovale (principal); I35.1 Nonrheumatic aortic (valve) insufficiency; I34.0 Nonrheumatic mitral (valve) insufficiency | CPT/HCPCS: 93303; 93320; 93325 ==

== ENCOUNTER 2025-05-18 15:05 | Outpatient (REF) | payer MEDICARE, SELFPAY ==
--- OUTSIDE RECORDS SUMMARY | 2025-05-18 17:34 | XMS_ITS | Patient Health Record ---
Author Organization [facility] Address [address] [place] [address] Care Team Providers Care Escrow Processor Name Role Phone Xenia Gr MD Primary Care Provider Christian Roy Unavailable [phone] Allergies No Known Allergies Reason For Referral [...] Problem Status W/U Status Risk Notes Problem 13963782 Rectal bleeding (K62.5) Active confirmed Problem 926811100 Encounter for screening for malignant neoplasm of colon (Z12.11) Active confirmed Problem 866219452 Other constipati on (K59.09) Active confirmed Problem History of gastrointestinal tract bypass (654538907) Intestinal bypass and anastomosis status (Z98.0) Active confirmed Problem 256527369 Abnormal CT scan , gastrointestinal tract (R93.3) Active confirmed Problem 7248837833149 Family history o f colorectal cancer (Z80.0) Active confirmed Problem 85630952 Acute colitis (K52.9) Active confirmed Problem 02670651 Incontinence of feces, unspecified fecal incontinence type [...] [employer] [place] [address] [address] [place] [address] [id number] MIKEY MORRIS Self - patient is the insured Medical (General) History Medical History History ICD Code Denies [place],DM,CVA,Lung disease,renal dise ase Negative colonoscopy in 2009 [...]
== END 2025-05-18 15:06 | disposition home or self-care (01) ==
LOC: HO.MAMMO 15:05
PROVIDERS: PCP Internal Medicine; Visit Provider Internal Medicine
DX: Z12.31 Encounter for screening mammogram for malignant neoplasm of breast (principal)
CPT/HCPCS: 77063; 77067

== ENCOUNTER → 2025-05-18 15:30 | Outpatient (BNV) | payer MEDICARE, SELFPAY | PROVIDERS: PCP Internal Medicine; Visit Provider Internal Medicine | DX: Z12.31 Encounter for screening mammogram for malignant neoplasm of breast (principal) | CPT/HCPCS: 77063; 77067 ==

== ENCOUNTER 2025-05-20 08:35 | Outpatient (AMB) | payer MEDICARE, SELFPAY ==
--- NOTE | 2025-05-20 08:43 | A.OFFVIS_ITS ---
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 No complaints. Last Pap/HPV was in 2015 was negative , the patient is status post hysterectomy no history of abnormal Pap smears Last Mammogram was in 05/26, results are still pending Last Colonoscopy was in 11/21 Last DEXA scan was in 09/21 [facility] Medical History Osteopenia (~2016) Osteoarthritis of foot, left Obstructive sleep apnea on CPAP (~2011) Mammogram normal Normal colonoscopy PFO with atrial 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 Mother No problems noted. Sister Breast cancer CVD (cardiovascular disease) Paternal Grandmother Breast cancer Paternal Grandfather No problems noted. 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 Cognitive needs: No Hearing needs: No Vision needs: Yes Female Reproductive History Menstrual Age of Menarche: 11 Total pregnancies: 2 Full term: 2 Number of Living Children: 1 Date of Mammogram: 05/18/25 Review of Systems Const All systems reviewed & are unremarkable except as noted in HPI and below Card Reports as per HPI and Reports no additional complaints Resp Reports as per HPI and Reports no additional complaints GI Reports as per HPI and Reports no additional complaints Reports as per HPI Physical Exam Vital Signs: BMI result Body Mass Index 21.9 Const General: cooperative, healthy appearing and comfortable General: Yes bladder normal to palpation External Female Exam: lesion (Left vulvar redness/irritation) Speculum Exam - Vagina: normal appearance of the vagina, normal vaginal discharge and not erythematous Speculum Exam - Cervix: Cervix absent Bimanual exam- vagina & uterus: bladder normal to palpation and uterus absent Bimanual Exam- Adnexa, other: Other (No masses detected) Assessment & Plan Assessment & Plan (1) Well woman exam: Code(s): Z01.419 - Encounter for gynecological examination (general) (routine) without abnormal findings Category: Medical Plan: Co testing not indicated. Counseled the patient about the recommended dietary allowance of 1200 mg of Calcium & 800 IU of vitamin D. Instructions given the patient to schedule next screen Mammogram in 05/27 Will order DEXA scan . The patient was instructed to perform monthly self-breast exams and to schedule a 2 week DEXA scan follow-up appointment and an annual exam in a year; All questions answered and the patient verbalized understanding. (2) Vulvar inflammation: Code(s): N76.2 - Acute vulvitis Category: Medical Plan: Discussed with the patient the finding on pelvic exam showing left vulvar red ness/irritation previous biopsy showed dermatitis, will repeat vulvar biopsy to rule out DAVE. Instructions given the patient to schedule vulvar biopsy appointment within 2 weeks Orders: Orders XR DEXA axial skeleton Today Z78.0 - Asymptomatic menopausal state Coding Level of Care Code Est Pt Prev Care >65y(57424) Diagnoses Well woman exam Z01.419 Vulvar inflammation N76.2
[2025-05-20 08:44] VITALS: BP 112/66; BMI 21.9
--- OUTSIDE RECORDS SUMMARY | 2025-05-20 08:57 | XMS_ITS | Patient Health Record ---
Author Organization [facility] Address [address] [place] [address] Care Team Providers Care Bodybuilder Name Role Phone Xenia Gr MD Primary Care Provider Christian Roy Unavailable [phone] Allergies No Known Allergies Reason For Referral [...] Problem Status W/U Status Risk Notes Problem 43947629 Rectal bleeding (K62.5) Active confirmed Problem 896127489 Encounter for screening for malignant neoplasm of colon (Z12.11) Active confirmed Problem 933002581 Other constipati on (K59.09) Active confirmed Problem History of gastrointestinal tract bypass (063573906) Intestinal bypass and anastomosis status (Z98.0) Active confirmed Problem 712096540 Abnormal CT scan , gastrointestinal tract (R93.3) Active confirmed Problem 0357204237053 Family history o f colorectal cancer (Z80.0) Active confirmed Problem 31048299 Acute colitis (K52.9) Active confirmed Problem 39937444 Incontinence of feces, unspecified fecal incontinence type [...] [employer] [place] [address] [address] [place] [address] [id number] MIKEY LEZAMA Self - patient is the insured Medical (General) History Medical History History ICD Code Denies CT,DM,CVA,Lung disease,renal dise ase Negative colonoscopy in 2009 [...]
== END 2025-05-20 09:47 | disposition home or self-care (01) ==
PROVIDERS: PCP Internal Medicine; Visit Provider Obstetrics & Gynecology
DX: Z01.419 Encounter for gynecological examination (general) (routine) without abnormal findings (principal); N76.2 Acute vulvitis
CPT/HCPCS: 99213; G0101

== ENCOUNTER 2025-05-20 08:35 | Outpatient (REF) | payer MEDICARE, SELFPAY ==
[2025-05-20 09:56] LABS: MANUAL DIFF FLAG NO
[2025-05-20 10:39] LABS: Basophils Absolute Auto 0.1 X10*3/uL (0.0-0.2); Basophils Percent Auto 0.9 % (0-2); Eosinophils Absolute Auto 0.2 X10*3/uL (0.0-0.4); Eosinophils Percent Auto 3.8 % (0-4); Hematocrit 43.2 % (37.0-47.0); Hemoglobin 14.2 g/dl (12.0-16.0); Imm Gran Abs Auto 0.02 X10*3/uL (0.00-0.03); Imm Gran Pct Auto 0.3 % (0.0-0.4); Lymphocytes Absolute Auto 1.3 X10*3/uL (1.2-4.9); Lymphocytes Percent Auto 22.7 % (20-40); Mean Corpuscular HGB Conc 32.9 g/dl (31.0-35.0); Mean Corpuscular Hemoglobin 30.3 pg (27.0-33.0); Mean Corpuscular Volume 92.3 fL (80.0-98.0); Mean Platelet Volume 9.8 fL (9.4-12.3); Monocytes Absolute Auto 0.6 X10*3/uL (0.1-1.2); Monocytes Percent Auto 9.8 % (2-11); Neutrophils Absolute Auto 3.6 x10*3/uL (2.0-8.3); Neutrophils Percent Auto 62.5 % (45-73); Platelet Count 350 X10*3/uL (160-400); Red Blood Count 4.68 X10*6/uL (4.20-5.50); Red Cell Distribution Width 13.1 % (11.0-16.0); White Blood Count 5.7 X10*3/uL (4.8-10.8)
[2025-05-20 11:47] LABS: Alanine Aminotransferase 28 U/L (0-31); Albumin Level 4.4 g/dL (3.5-5.0); Alkaline Phosphatase 103 U/L (39-117); Anion Gap 11 (12-20); Aspartate Amino Transferase 24 U/L (5-31); Bilirubin Total 0.5 mg/dL (0.0-1.0); Blood Urea Nitrogen 20 mg/dL (9-16); Carbon Dioxide 28 mmol/L (22-29); Chloride 105 mmol/L (96-108); Cholesterol 167 mg/dL (<200); Estimated Glomerular Filt Rate > 60; Glucose Fasting 98 mg/dL (60-99); HDL Cholesterol 78 mg/dL (>40); LDL Cholesterol Calculated 80 mg/dL (<100); Potassium 3.9 mmol/L (3.3-5.1); Sodium 140 mmol/L (135-145); TSH reflex Free T4 0.87 uIU/mL (0.32-4.0); Triglycerides 49 mg/dL (<150); Vitamin D 25-OH Total 46.5 ng/mL (>30)
== END 2025-05-20 08:36 | disposition home or self-care (01) ==
LOC: HO.LAB 08:35
PROVIDERS: Absent Provider Internal Medicine; PCP Internal Medicine; Visit Provider Obstetrics & Gynecology
DX: Z01.419 Encounter for gynecological examination (general) (routine) without abnormal findings (principal); Z78.0 Asymptomatic menopausal state; N76.2 Acute vulvitis; Z90.710 Acquired absence of both cervix and uterus; Z00.00 Encounter for general adult medical examination without abnormal findings; E78.5 Hyperlipidemia, unspecified; E55.9 Vitamin D deficiency, unspecified
CPT/HCPCS: 36415; 80053; 80061; 82306; 84443; 85025; 99212; G0101

== ENCOUNTER 2025-06-03 07:50 | Outpatient (REF) | payer OTHER, SELFPAY ==
--- NOTE | ~2025-06-03 | XR_ITS ---
EXAMINATION: XR WRIST, RIGHT CLINICAL INFORMATION: M79.641 - Pain in right hand COMPARISON: None available. TECHNIQUE: PA, lateral, navicular and oblique views of the right wrist. FINDINGS: There is severe asymmetric narrowing of the first carpal metacarpal joint with degenerative cystic changes, sclerosis, and marginal osteophytes. No abnormality is evident. XR/XR wrist RT w scaphoid IMPRESSION: Severe first carpal metacarpal joint osteoarthritis Electronically signed by: Jermaine Strong MD 06/03/2025 11:34 AM EDT
== END 2025-06-03 07:51 | disposition home or self-care (01) ==
LOC: HO.HOSX 07:50
PROVIDERS: PCP Internal Medicine; Visit Provider Internal Medicine
DX: Z00.00 Encounter for general adult medical examination without abnormal findings (principal); Z23 Encounter for immunization; E78.5 Hyperlipidemia, unspecified; G47.33 Obstructive sleep apnea (adult) (pediatric); Z99.89 Dependence on other enabling machines and devices; Z13.39 Encounter for screening examination for other mental health and behavioral disorders; M77.8 Other enthesopathies, not elsewhere classified; M79.641 Pain in right hand
CPT/HCPCS: 73110; 90471; 90677; 96127; 99212

== ENCOUNTER 2025-06-03 07:50 | Outpatient (AMB) | payer OTHER, SELFPAY ==
--- OUTSIDE RECORDS SUMMARY | 2025-06-03 07:52 | XMS_ITS | Patient Health Record ---
Author Organization [facility] Address [address] [place] [address] Care Team Providers Care Chef De Partie Name Role Phone Xenia Gr MD Primary Care Provider Christian Roy Unavailable [phone] Allergies No Known Allergies Reason For Referral [...] Problem Status W/U Status Risk Notes Problem 54354213 Rectal bleeding (K62.5) Active confirmed Problem 884398491 Encounter for screening for malignant neoplasm of colon (Z12.11) Active confirmed Problem 723281476 Other constipati on (K59.09) Active confirmed Problem Intestinal bypas s and anastomosis status (Z98.0) Active confirmed Problem 009479331 Abnormal CT scan , gastrointestinal tract (R93.3) Active confirmed Problem 7222248461315 Family history o f colorectal cancer (Z80.0) Active confirmed Problem 04663382 Acute colitis (K52.9) Active confirmed Problem 72923441 Incontinence of feces, unspecified fecal incontinence type [...] [employer] [place] [address] [address] [place] [address] [id number] MIKEY LEZAMA Self - patient is the insured Medical (General) History Medical History History ICD Code Denies [place],DM,CVA,Lung disease,renal dise ase Negative colonoscopy in 2009 [...] chroni c constipation and rectal prolapse--Dr. Campos 1989' Right foot surgery
--- OUTSIDE RECORDS SUMMARY | 2025-06-03 07:53 | XMS_ITS | Patient Health Record ---
Author Organization [facility] Address [address] [place] [address] Care Team Providers Care Wardrobe Specialist Name Role Phone Xenia Gr MD Primary Care Provider Unavaila Faiza Dailey Unavailable [phone] Allergies No Known Allergies Reason For Referral No Information Medications Medication SIG (Take, Route, Frequency, Duration) Notes Start Date End Date Status Imitrex 50 MG Orally PRN Active Aspirin 81 MG 1 tablet Orally Once a day; Duration: 30 day(s) Active CeleXA Not-Taking Vitamin D3 2000 UNIT Orally Once a day Active oxyCODONE HCl 5 MG 1 tablet as needed Orally every 6 hrs; Duration: 5 days 09/23/2020 Not-Taking Ciclopirox Olamine 0.77% external Apply to effected areas twice a day; Duration: 30 days 07/21/2020 Active Calcium 600 MG 1 tablet with meals Orally Twice a day; Duration: 30 day(s) Not-Taking Work Note . . . Patient to start full/complete light duty 2 weeks prior to foot surgery 06/12/2021 Active Ciclopirox Olamine 0.77 % 1 application to affected area Externally to feet Twice a day; Duration: 30 days Active predniSONE 10 MG 1 tablet with food o r milk Orally Once a day; Duration: 30 day(s) Not-Taking Calcium 600 MG 1 tablet with meals Orally Twice a day; Duration: 30 day(s) Active Custom Orthotics as directed 02/24/2021 Active Work Note . . . 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 . . 2-3x/week; Durat ion: 3-4 weeks 11/18/2020 Active Turmeric Active predniSONE 10 MG 1 tablet with food o r milk Orally Once a day; Duration: 30 day(s) Not-Taking Immunizations Vaccine Route Administration [...] primary osteoarthritis of the ankle and/or foot (160837727) Primary osteoarthritis, right ankle and foot (M19.071) Active confirmed Problem Localized, primary osteoarthritis of the ankle and/or foot (848845351) Primary osteoarthritis, left ankle and foot (M19.072) Active confirmed Problem Acquired hallux valgus (27406542) Hallux valgus (acquired), right foot (M20.11) Active confirmed Problem Contracture of joint of right foot (disorder) (522690051293558) Contracture, right foot (M24.574) Active confirmed Problem Acquired hammer toe of right foot (7825450974552288 ) Other hammer toe(s) (acquired), right foot (M20.41) Active confirmed Problem PlantarFlexion o f metatarsal of right foot (M21.6X1) Active confirmed Problem Complex regional pain syndrome type I of right lower limb (disorder) (465832928078888) Complex regional pain syndrome type 1 of right lower extremity (G90.521) Active confirmed Problem Brumfield's metatarsalgia (disorder) (01236004) 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) Active confirmed Encounters Encounter Location Date Provider Diagnosis [facility] [address] [place] [address] 11/16/2024 Faiza Balta Plan Of Treatment Pending Test Test Name [...] X ray : Foot, right 3V 09/19/2015 04516-Mwbl Destruction, 1-14 04/19/2017 55974-Hcat Destruction, -14 01/02/2018 93220-Wxtg Destruction, -14 01/04/2015 27966-Eela Destruction, 1-14 04/06/2013 22084-Ohyv Destruction, 1-14 03/23/2014 37335- Debride <25 sq cm 03/23/2014 46802- Debride <25 sq cm 05/28/2012 96340- Debride <25 sq cm 01/04/2015 69431, W4415-CCTIX/INJECT, JOINT/BURSA 0 01/04/2015, S6970-HKCDH/INJECT, JOINT/BURSA 1 00, J1945-JQXFG/INJECT, JOINT/BURSA 0 03/23/201489861, V7063-EWSLQ/INJECT, JOINT/BURSA 0 02/24/2021- Ganglion Cyst Injection/Aspiratio n 06/03/2012 Insurance Providers Payer Name Payer Address Payer Phone Subscriber Number Group Number Insured Name Patient Relationship to Insured Coverage Start Date Coverage End Date Medicare National [facility] [address] [place] [address] [id number] Andra Lezama Self - patient is the insured [employer] [address] [place] [address] [phone] [id number] Andra Lezama Self - patient is the insured Medical (General) History Medical History History ICD Code back, hip, knee pain Surgical History Surgery Date(Month/Year) hysterectomy 2005 Bilateral knee replacement left foot surgery 02/01/2015
[2025-06-03 08:06] VITALS: BP 122/74; PULSE 66; TEMP 36.8; O2SAT 99; BMI 22.4
--- NOTE | 2025-06-03 08:06 | A.OFFPC_ITS ---
Vital Signs 06/03/25 08:06 Height 5 ft 6 in Weight 139 lb BMI 22.4 BP 122/74 Blood Pressure Location Lt brachial Position Sitting Pulse 66 Pulse Source Pulse Oximeter Temp 98.3 F Temp Source Oral Pulse Oximetry (%) 99 Oxygen Delivery Method Room Air Intake Visit Reasons: Annual PE Intake Note: Pt is here today for PE. Allergies hydromorphone (From DILAUDID) Adverse Reaction (Unknown, Verified 06/03/25 08:10) MAKES ME LOOPY seasonal allergies Allergy (Unknown, Uncoded 06/03/25 08:10) Unknown Medication List - Last Reconciled 06/03/25 by Xenia Gr MD aspirin 81 mg PO DAILY calcium carbonate (Calci-Mix) 500 mg PO DAILY cetirizine (Zyrtec) 10 mg PO DAILY PRN cholecalciferol (vitamin D3) 50 mcg PO DAILY clobetasol 0.05% 1 appl topical BID 2 weeks fluticasone propionate 50 mcg/actuation (Flonase Allergy Relief) 1 spray intranasal DAILY furosemide 20 mg PO DAILY PRN ketoconazole 2% 1 appl topical DAILY magnesium hydroxide 400 mg PO BEDTIME PRN meclizine 25 mg PO BID PRN montelukast 10 mg PO DAILY pravastatin 40 mg PO DAILY sumatriptan succinate take 1 tab at onset of headache; if no relief, may repeat 1 tab after at least 2 hrs; max = 2 tabs/24 hrs PO tretinoin 0.1% 1 appl topical BEDTIME turmeric 1,000 mg PO Tobacco use date assessed: 06/03/25 Fall risk assessment: 1 Fall in past year Last assessed Fall Risk: 06/03/25 Dental Screening Dental Screen Date: 06/03/25 Did you have a dental visit in the last 12 months?: Yes Did you have a dental problem in the last 6 months where you did not have access to dental care?: No Was dental information given to patient?: Patient has dentist HPI Annual PE HPI Details Patient presents for a physical. She has been doing better grieving her son. Patient reports eating well-balanced diet and exercising regularly. She complains of insomnia, falling asleep but then waking up and hour after. Patient denies depression or anxiety. She tried 50 mg of hydroxyzine without relief PFSH Medical History Osteopenia (~2017) Osteoarthritis of foot, left Obstructive sleep apnea on CPAP (~2011) Mammogram normal Normal colonoscopy PFO with atrial 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 Mother No problems noted. Sister Breast cancer CVD (cardiovascular disease) Paternal Grandmother Breast cancer Paternal Grandfather No problems noted. 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 1. Little interest or pleasure in doing things: not at all 96777 - PHQ-9 Billing: Patient declined-do not bill Source: Developed by Drs. Christian Huddleston, Michelle Souza, Keven Belle and colleagues, with an educational sharona from [employer]. Thrive Questionnaire Date Thrive assessed: 06/03/25 I am a: Patient What is your living situation today?: I have a steady place to live Within the past 12 months, did the food you bought not last and you didn't have the money to get more?: Never true Within the past 12 months, did you worry whether your food would run out before you got money to buy more?: Never true Do you have trouble paying for medicines?: No Do you have trouble getting transportation to medical appointments?: No Do you have trouble paying your heating and electricity bill?: No Do you have trouble taking care of your child, family member or friend?: No Do you have trouble with day-to-day activities such as bathing, preparing meals, shopping, managing finances, etc.?: No Are you currently unemployed and looking for a job?: No Are you interested in more education?: No Please select the resources that you would like help with: None Currently or been in a relationship where the following occur: No concerns reported THRIVE Score: 0 AUDIT C Alcohol Use Questionnaire (AUDIT-C) 1. How often do you have a drink containing alcohol?: 2-3 times a week 2. How many drinks containing alcohol do you have on a typical day when you are drinking?: 1 or 2 3. How often do you have six or more drinks on one occasion?: Never Total Score: 3 JAMES-7 AMB Questionnaire JAMES-7 Date JAMES - 7 assessed: 06/03/25 Feeling nervous, anxious, or on edge: 0 = Not at all Not being able to stop or control worryin = Not at all Worrying too much about different things: 0 = Not at all Trouble relaxin = Several days Being so restless that it is hard to sit still: 0 = Not at all Becoming easily annoyed or irritable: 0 = Not at all Feeling afraid as if something awful might happen: 0 = Not at all Total JAMES-7 score (0-4 normal; 5-9 mild; 10-14 moderate; 15-21 severe): 1 Source: Developed by Drs. Christian Huddleston, Michelle Souza, Keven Belle and colleagues, with an educational sharona from [employer]. JAMES-7 Assessment Billing JAMES-7 Assessment Tool: JAMES-7 Assessment 81019 Review of Systems Const All systems reviewed & are unremarkable except as noted in HPI and below Eyes Reports no additional complaints ENT Reports no additional complaints Card Reports no additional complaints Resp Reports no additional complaints GI Reports no additional complaints Reports no additional complaints Physical exam (Primary Care) Vital Signs: Last Vital Signs Temp 98.3 F 06/03/25 08:06 Pulse 66 06/03/25 08:06 BP 122/74 06/03/25 08:06 Pulse Ox 99 06/03/25 08:06 Oxygen Delivery Method Room Air 06/03/25 08:06 BMI result Body Mass Index 22.4 Tobacco/Smoking Status: Tobacco use Status Tobacco use date assessed 06/03/25 06/03/25 08:13 Patient Tobacco Use Status Former Tobacco user 06/03/25 08:13 e-Cigarette/Vaping Use Never Used 06/03/25 08:13 Thrive Assessment: Date of Thrive Assessment Date Thrive assessed 06/03/25 06/03/25 08:13 Currently or been in a relationship where the following occur: No concerns reported Const General: no acute distress HENMT Head: Yes normal to inspection Face and sinus: Yes normal facial exam Mouth: Normal oral and palatal mucosa present Eyes General: appearance normal, both eyes and all related structures Neck Neck: Yes no lymphadenopathy and Yes supple Resp Effort & Inspection: normal respiratory effort Auscultation: clear to auscultation bilaterally Cardio Rhythm: regular rhythm Heart sounds: S1 normal heart sound present and S2 normal heart sound present GI Inspection: Yes normal to inspection Palpation (GI): Soft to palpation Percussion: Yes normal to percussion Auscultation: normal bowel sounds Immunizations pneumoc 20-gilma conj-dip cr(PF) 0.5 mL IM syringe Performing Provider: Xenia Gr MD Performing Location[place] [facility] Administered by: JOEY Henry on 06/03/25 08:57 Dose Route Admin Location Dispensed Lot Number Expiration Date [facility] Agricultural 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 Operator 0.5 mL IM Left Deltoid 0.5 mL [id number] 05/31/26 3525-6869-87 [employer] Total Dispensed Waste 0.5 mL 0 % VIS Given Date VIS Provided VIS Publication Date 06/03/25 Single Vaccine 25 Eligibility Eligibility Date Funding Source Not [facility] Eligible 06/03/25 Private Coding Level of Care Code Est Pt Prev Care >65y(35875) Diagnoses Hyperlipemia E78.5 Normal colonoscopy Obstructive sleep apnea on CPAP G47.33; Z99.89 Annual physical exam Z00.00 Additional Codes JAMES-7 Assessment Billing - JAMES-7 Assessment Tool: JAMES-7 Assessment 59391 ([id number]) Assessment & Plan Assessment & Plan (1) Hyperlipemia: Code(s): E78.5 - Hyperlipidemia, unspecified Category: Medical Plan: Continue statin (2) Normal colonoscopy: Comment: ([place]. Knox, [facility] [place] 01/24/10, 09/23/17 & 11/29/21) Category: Medical Plan: Colonoscopy every 5 years follow-up with GI (3) Obstructive sleep apnea on CPAP: Onset Date: ~2011 Comment: (EVA since 2011, Compliant with CPAP Code(s): G47.33 - Obstructive sleep apnea (adult) (pediatric); Z99.89 - Dependence on other enabling machines and devices Category: Medical Plan: Continue Cpap (4) Annual physical exam: Code(s): Z00.00 - Encounter for general adult medical examination without abnormal findings Category: Medical Plan: Well-balanced diet regular physical activity discussed with the patient she is up-to-date with the mammogram colonoscopy Pap smear by boiler mechanic, patient is due for repeat DEXA. She has been taking vitamin-D and exercising regularly for osteopenia. For chronic insomnia sleep hygiene discussed with the patient. She is not interested in medications Orders: Orders Lipid Panel Today E55.9 - Vitamin D deficiency, unspecified, Z00.00 - Encounter for general adult medical examination without abnormal findings TSH reflex Free T4 Today E55.9 - Vitamin D deficiency, unspecified, Z00.00 - Encounter for general adult medical examination without abnormal findings Vitamin D 25-OH Total Today E55.9 - Vitamin D deficiency, unspecified, Z00.00 - Encounter for general adult medical examination without abnormal findings Pneumococcal 20 Immunization Today Z23 - Encounter for immunization Comprehensive [place]. Panel Fast Today E55.9 - Vitamin D deficiency, unspecified, Z00.00 - Encounter for general adult medical examination without abnormal findings Complete Blood Count Auto Diff Today E55.9 - Vitamin D deficiency, unspecified, Z00.00 - Encounter for general adult medical examination without abnormal findings
== END 2025-06-03 09:09 | disposition home or self-care (01) ==
LOC: HO.HMCC 07:51
PROVIDERS: PCP Internal Medicine; Visit Provider Internal Medicine
DX: E78.5 Hyperlipidemia, unspecified (principal); G47.33 Obstructive sleep apnea (adult) (pediatric); Z99.89 Dependence on other enabling machines and devices; Z00.00 Encounter for general adult medical examination without abnormal findings; Z23 Encounter for immunization

== ENCOUNTER 2025-06-03 11:12 | Outpatient (AMB) | payer MEDICARE, SELFPAY ==
--- NOTE | 2025-06-03 11:46 | MHC.OFFVIS ---
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 Patient slipped and fell by the pool. She states that her pain is 0-1/10 on the pain scale. Patient notices that her wrist is sore and weak. She expresses some numbness in her thumb that started after the injury and a little bit of numbness on the unlar aspect of the wrist. 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 Patient slipped and fell by the pool. She states that her pain is 0-1/10 on the pain scale. Patient notices that her wrist is sore and weak. She expresses some numbness in her thumb that started after the injury and a little bit of numbness on the unlar aspect of the wrist. [facility] Medical History Osteopenia (~2017) Osteoarthritis of foot, left Obstructive sleep apnea on CPAP (~2011) Mammogram normal Normal colonoscopy PFO with atrial 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 Mother No problems noted. Sister Breast cancer CVD (cardiovascular disease) Paternal Grandmother Breast cancer Paternal Grandfather No problems noted. 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 Neuro: Normal sensation of the tips of all digits of the right hand at this time Vascular: Cap refill brisk Pain: Minimal tenderness to palpation noted of the ulnar styloid of the right wrist No pain with range of motion of the right wrist No tenderness to palpation of the radial styloid, anatomical snuffbox, scaphoid tubercle, or elsewhere in the right hand or wrist ROM: Patient is able to make a closed fist and extend all digits of the right hand fully Range of motion of the right wrist full, intact, largely painless aside from some minor discomfort with resisted extension over the ulnar aspect of the wrist Skin: No lacerations or abrasions. General: No ecchymosis, erythema, or evidence of infection. Psych: Appears grossly normal Affect normal Attitude cooperative Results Reviewed Results Reviewed: X-rays obtained in the office today and independently reviewed by me, Alex Waddell PA-C, demonstrate no fracture or acute bony abnormality of the right wrist Assessment & Plan Assessment & Plan (1) Extensor carpi ulnaris tendinitis: Code(s): M77.8 - Other enthesopathies, not elsewhere classified Category: Medical Plan 1. ECU tendinitis of right wrist Patient is educated about this condition Patient is educated about the typical recovery course At this time, patient is offered a referral to occupational therapy, but declines, stating she feels that she is improving on her own and does not require any PT Patient is advised that she can call us for referral to PT if she decides she wants it Patient understands this and is amenable to this plan Follow-up as needed Orders: Orders XR wrist RT w scaphoid 06/03/25 M79.641 - Pain in right hand Coding Level of Care Code Est Pt Level 3 (07077) Diagnoses Extensor carpi ulnaris tendinitis M77.8
[2025-06-03 11:50] VITALS: BMI 22.4
== END 2025-06-03 12:04 | disposition home or self-care (01) ==
LOC: HO.HOS 11:12
PROVIDERS: PCP Internal Medicine
DX: M77.8 Other enthesopathies, not elsewhere classified (principal)
CPT/HCPCS: 99213

== ENCOUNTER → 2025-06-03 11:21 | Outpatient (BNV) | payer OTHER, SELFPAY | PROVIDERS: PCP Internal Medicine; Visit Provider Radiology Diagnostic Radiology | DX: M18.11 Unilateral primary osteoarthritis of first carpometacarpal joint, right hand (principal) | CPT/HCPCS: 73110 ==

== ENCOUNTER 2025-06-09 11:04 | Outpatient (AMB) | payer MEDICARE, SELFPAY ==
[2025-06-09 11:11] VITALS: BMI 22.4
--- NOTE | 2025-06-09 11:11 | A.OFFVIS_ITS ---
Vital Signs 06/09/25 11:11 Height 5 ft 6 in Weight 139 lb BMI 22.4 Intake Visit Reasons: vulva biopsy Health [facility] Associate Required: No Information Interpreted: non-clinical & clinical Twisting Frame Changer: Twisting Frame Changer Present (Alena CALDERONTiffanie) Accompanied by: Self / Same As Patient Allergies hydromorphone (From DILAUDID) Adverse Reaction (Unknown, Verified 06/09/25 11:12) MAKES ME LOOPY seasonal allergies Allergy (Unknown, Uncoded 06/09/25 11:12) Unknown Post menopausal: Yes HPI Comments Details: Presenting for left vulvar biopsy PFSH Medical History Osteopenia (~2016) Osteoarthritis of foot, left Obstructive sleep apnea on CPAP (~2011) Mammogram normal Normal colonoscopy PFO with atrial 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 Mother No problems noted. Sister Breast cancer CVD (cardiovascular disease) Paternal Grandmother Breast cancer Paternal Grandfather No problems noted. 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 Preop dx: Left labia majora lesion Op: Left labia majora lesion biopsy Post op: Same Anesthesia: Lidocaine 1% 3cc used Procedure: Using betadine the area was scrubbed and draped in the usual manner. 3 cc of lidocaine was used for anesthesia at the left Left labia majora lesion area ; using punch biopsy and pickup the Left labia majora lesion. Pressure was used for hemostasis. The patient tolerated the procedure well. Discharge Instructions: The patient was instructed to schedule an appointment in 2 weeks for follow-up and to call if temp>100.4, area of the biopsy redness or pain, nausea/vomiting. This note was generated with a voice recognition program. Some errors may have been overlooked during the review of this note. Sometimes these errors may affect the content or meaning of a given sentence. 81517-Evnnnx of Vulva/Perineum Procedure code (CPT) selection complete Assessment & Plan Assessment & Plan (1) Vulvar lesion: Comment: Left-sided redness Code(s): N90.89 - Other specified noninflammatory disorders of vulva and perineum Category: Medical Plan: Left labia majora biopsy done, see procedure Orders: Orders AMB HEAVY EQUIPMENT SERVICE TECHNICIAN Biopsy Today N90.89 - Other specified noninflammatory disorders of vulva and perineum Coding Level of Care Code Procedure Only Diagnoses Vulvar lesion N90.89 CPT Codes HEAVY EQUIPMENT SERVICE TECHNICIAN Biopsy - CPT: 84629-Hbnpzm of Vulva/Perineum ([id number])
--- OUTSIDE RECORDS SUMMARY | 2025-06-09 12:18 | XMS_ITS | Patient Health Record ---
Author Organization [facility] Address [address] [place] [address] Care Team Providers Care Extension Agent Name Role Phone Xenia Gr MD Primary Care Provider Christian Roy Unavailable [phone] Allergies No Known Allergies Reason For Referral [...] Problem Status W/U Status Risk Notes Problem 94755345 Rectal bleeding (K62.5) Active confirmed Problem 797725867 Encounter for screening for malignant neoplasm of colon (Z12.11) Active confirmed Problem 718965296 Other constipati on (K59.09) Active confirmed Problem Intestinal bypas s and anastomosis status (Z98.0) Active confirmed Problem 742743144 Abnormal CT scan , gastrointestinal tract (R93.3) Active confirmed Problem 1427112988174 Family history o f colorectal cancer (Z80.0) Active confirmed Problem 81500962 Acute colitis (K52.9) Active confirmed Problem 18633123 Incontinence of feces, unspecified fecal incontinence type [...] [employer] [place] [address] [address] [place] [address] [id number] MIKEY MORRIS Self - patient is the insured Medical (General) History Medical History History ICD Code Denies [place],DM,CVA,Lung disease,renal dise ase Negative colonoscopy in 2009 [...]
--- OUTSIDE RECORDS SUMMARY | 2025-06-09 12:18 | XMS_ITS | Patient Health Record ---
Author Organization [facility] Address [address] [place] [address] Care Team Providers Care Paper Bag Machine Operator Name Role Phone Xenia Gr MD Primary Care Provider Unavaila Faiza Dailey Unavailable [phone] Allergies No Known Allergies Reason For Referral [...] can retu rn full duty as tolerated, professional services consultant duty as needed due to foot pain [...] primary osteoarthritis of the ankle and/or foot (060785482) Primary osteoarthritis, right ankle and foot (M19.071) Active confirmed Problem Localized, primary osteoarthritis of the ankle and/or foot (240829698) Primary osteoarthritis, left ankle and foot (M19.072) Active confirmed Problem Acquired hallux valgus (89121802) Hallux valgus (acquired), right foot (M20.11) Active confirmed Problem Contracture of joint of right foot (disorder) (943077452636860) Contracture, right foot (M24.574) Active confirmed Problem Acquired hammer toe of right foot (4547282231959407 ) Other hammer toe(s) (acquired), right foot (M20.41) Active confirmed Problem PlantarFlexion o f metatarsal of right foot (M21.6X1) Active confirmed Problem Complex regional pain syndrome type I of right lower limb (disorder) (136333560505616) Complex regional pain syndrome type 1 of right lower extremity (G90.521) Active confirmed Problem Brumfield's metatarsalgia (disorder) (31503182) 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) Active confirmed Encounters Encounter Location Date Provider Diagnosis [facility] [address] [place] [address] 11/16/2024 Faiza Balta Plan Of Treatment Pending [...] X ray : Foot, right 3V 09/19/2015 80766-Khwu Destruction, 1-14 04/19/2017 80163-Xkee Destruction, -14 01/02/2018 58252-Uytq Destruction, -14 01/04/2015 52185-Zrwq Destruction, 1-14 04/06/2013 45524-Aljn Destruction, 1-14 03/23/2014 92913- Debride <25 sq cm 03/23/2014 08637- Debride <25 sq cm 05/28/2012 31724- Debride <25 sq cm 01/04/2015 78639, Z4426-VKJKX/INJECT, JOINT/BURSA 0 01/04/2015, G6682-OMYAH/INJECT, JOINT/BURSA 1 00, J6499-NDSND/INJECT, JOINT/BURSA 0 03/23/201402334, E6729-LRVCB/INJECT, JOINT/BURSA 0 02/24/2021- Ganglion Cyst Injection/Aspiratio n 06/03/2012 Insurance Providers Payer Name Payer Address Payer Phone Subscriber Number Group Number Insured Name Patient Relationship to Insured Coverage Start Date Coverage End Date Medicare National [facility] [address] [place] [address] [id number] Andra Lezama Self - patient is the insured [employer] [address] [place] [address] [id number] Andra Lezama Self - patient is the insured Medical (General) History Medical History History ICD Code back, hip, knee pain Surgical History Surgery Date(Month/Year) hysterectomy 2005 Bilateral knee replacement left foot surgery 02/01/2015
== END 2025-06-09 11:31 | disposition home or self-care (01) ==
LOC: HO.HWS 11:05
PROVIDERS: PCP Internal Medicine; Visit Provider Obstetrics & Gynecology
DX: N90.89 Other specified noninflammatory disorders of vulva and perineum (principal)
CPT/HCPCS: 56605

== ENCOUNTER 2025-06-09 11:04 | Outpatient (REF) | payer MEDICARE, SELFPAY | END 2025-06-09 11:05 | disposition home or self-care (01) | LOC: HO.LNP 11:04 | PROVIDERS: PCP Internal Medicine; Visit Provider Obstetrics & Gynecology | DX: N90.89 Other specified noninflammatory disorders of vulva and perineum (principal); L30.9 Dermatitis, unspecified | CPT/HCPCS: 56605; 88305; 88312 ==

== ENCOUNTER 2025-06-24 09:58 | Outpatient (AMB) | payer MEDICARE, SELFPAY ==
--- NOTE | 2025-06-24 09:58 | A.OFFVIS_ITS ---
Intake Visit Reasons: Dexa and biopsy results Allergies hydromorphone (From DILAUDID) Adverse Reaction (Unknown, Verified 06/09/25 11:12) MAKES ME LOOPY seasonal allergies Allergy (Unknown, Uncoded 06/09/25 11:12) Unknown HPI Comments Details: The patient is schedule telehealth visit for follow-up. The pathology of the vulvar biopsy showed the following: Vulva, left labia majora, excision: Spongiotic dermatitis; no atypia or fungi identified. See comment. Comment: The inflammation is comprised predominantly of lymphocytes; definitive eosinophils are not identified. The differential includes contact/trauma, atopic, drug and infection. Please correlate with clinical history On clobetasol twice a week [facility] Medical History Osteopenia (~2016) Osteoarthritis of foot, left Obstructive sleep apnea on CPAP (~2011) Mammogram normal Normal colonoscopy PFO with atrial 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 Mother No problems noted. Sister Breast cancer CVD (cardiovascular disease) Paternal Grandmother Breast cancer Paternal Grandfather No problems noted. 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 Cognitive needs: No Hearing needs: No Vision needs: Yes Female Reproductive History Menstrual Age of Menarche: 11 Review of Systems Const All systems reviewed & are unremarkable except as noted in HPI and below Reports as per HPI and Reports no additional complaints GI Reports no additional complaints Reports no additional complaints Telehealth Telehealth Telehealth Platform: Casentric Location of provider rendering services: practice address Location of patient: address on file Patient Identification confirmed using: Name, : Yes Telehealth method: voice only Patient verbally consented to treatment: Yes Patient verbally consented to billing insurance company: Yes Patient informed of any privacy concerns related to visit: Yes Assessment & Plan Assessment & Plan (1) Vulvar lesion: Comment: Left-sided redness Code(s): N90.89 - Other specified noninflammatory disorders of vulva and perineum Category: Medical Plan: Discussed with the patient the results the pathology, recommended increasing the dose of clobetasol to more frequent use per week in order to titrate the dose and control the symptoms then will refer to Dermatology for any additional treatment. All questions answered, the patient verbalized understanding. Instructed the patient to call our office back in case a referral appointment is not scheduled, missed or canceled so that we will assist on rescheduling another appointment, the patient verbalized understanding agreed with the plan. I spent a total of 20 minutes reviewing the chart, talking to the patient via for and documenting in the medical record. Orders: Referrals Dermatology Referral N76.2 - Acute vulvitis Coding Level of Care Code Tele Est Pt Level 3 (19885) Diagnoses Vulvar lesion N90.89
--- OUTSIDE RECORDS SUMMARY | 2025-06-24 10:44 | XMS_ITS | Patient Health Record ---
Author Organization [facility] Address [address] [place] [address] Care Team Providers Care Production Welding Supervisor Name Role Phone Xenia Gr MD Primary Care Provider Unavaila Faiza Dailey Unavailable [phone] Allergies No Known Allergies Reason For Referral [...] can retu rn full duty as tolerated, oracle specialist duty as needed due to foot [...] primary osteoarthritis of the ankle and/or foot (577860027) Primary osteoarthritis, right ankle and foot (M19.071) Active confirmed Problem Localized, primary osteoarthritis of the ankle and/or foot (893346677) Primary osteoarthritis, left ankle and foot (M19.072) Active confirmed Problem Acquired hallux valgus (15479443) Hallux valgus (acquired), right foot (M20.11) Active confirmed Problem Contracture of joint of right foot (disorder) (508240194273420) Contracture, right foot (M24.574) Active confirmed Problem Acquired hammer toe of right foot (9233323439740255 ) Other hammer toe(s) (acquired), right foot (M20.41) Active confirmed Problem PlantarFlexion o f metatarsal of right foot (M21.6X1) Active confirmed Problem Complex regional pain syndrome type I of right lower limb (disorder) (186649021490632) Complex regional pain syndrome type 1 of right lower extremity (G90.521) Active confirmed Problem Brumfield's metatarsalgia (disorder) (46417143) 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) Active confirmed Encounters Encounter Location Date Provider Diagnosis [facility] [place] [address] [place] [address] 11/16/2024 Faiza Balta Plan Of Treatment Pending [...] X ray : Foot, right 3V 09/19/2015 48215-Finz Destruction, 1-14 04/19/2017 42231-Cnab Destruction, -14 01/02/2018 72929-Asxw Destruction, -14 01/04/2015 06684-Lodr Destruction, 1-14 04/06/2013 30275-Owxf Destruction, 1-14 03/23/2014 49363- Debride <25 sq cm 03/23/2014 57632- Debride <25 sq cm 05/28/2012 20478- Debride <25 sq cm 01/04/2015 05319, H7112-WAYEC/INJECT, JOINT/BURSA 0 01/04/2015, X2274-TCOMP/INJECT, JOINT/BURSA 1 00, T7734-XPXDX/INJECT, JOINT/BURSA 0 03/23/201475101, W3126-BRWDR/INJECT, JOINT/BURSA 0 02/24/2021- Ganglion Cyst Injection/Aspiratio n 06/03/2012 Insurance Providers Payer Name Payer Address Payer Phone Subscriber Number Group Number Insured Name Patient Relationship to Insured Coverage Start Date Coverage End Date Medicare National [facility] [address] [place] [address] [id number] Andra Lezama Self - patient is the insured [employer] [address] [place] [address] [phone] [id number] Andra Lezama Self - patient is the insured Medical (General) History Medical History History ICD Code back, hip, knee pain Surgical History Surgery Date(Month/Year) hysterectomy 2005 Bilateral knee replacement left foot surgery 02/01/2015
--- OUTSIDE RECORDS SUMMARY | 2025-06-24 10:44 | XMS_ITS | Patient Health Record ---
Author Organization [facility] Address [address] [place] [address] Care Team Providers Care Paper Rewinder Operator Name Role Phone Xenia Gr MD Primary Care Provider Christian Roy Unavailable [phone] Allergies No Known Allergies Reason For Referral [...] Problem Status W/U Status Risk Notes Problem 16383546 Rectal bleeding (K62.5) Active confirmed Problem 012920117 Encounter for screening for malignant neoplasm of colon (Z12.11) Active confirmed Problem 654156299 Other constipati on (K59.09) Active confirmed Problem History of gastrointestinal tract bypass (770537399) Intestinal bypass and anastomosis status (Z98.0) Active confirmed Problem 331437930 Abnormal CT scan , gastrointestinal tract (R93.3) Active confirmed Problem 6818930612144 Family history o f colorectal cancer (Z80.0) Active confirmed Problem 12797718 Acute colitis (K52.9) Active confirmed Problem 89262104 Incontinence of feces, unspecified fecal incontinence type [...] [employer] [place] [address] [address] [place] [address] [id number] MIKEY LEZAMA Self - patient is the insured Medical (General) History Medical History History ICD Code Denies [place],DM,CVA,Lung disease,renal dise ase Negative colonoscopy in 2009 [...]
== END 2025-06-24 11:05 | disposition home or self-care (01) ==
LOC: HO.HWS 09:58
PROVIDERS: PCP Internal Medicine; Visit Provider Obstetrics & Gynecology
DX: N90.89 Other specified noninflammatory disorders of vulva and perineum (principal)
CPT/HCPCS: 99213

== ENCOUNTER 2025-10-15 12:49 | Outpatient (AMB) | payer MEDICARE, SELFPAY ==
[2025-10-15 12:51] VITALS: BP 118/74; PULSE 67; RESP 17; TEMP 36.7; O2SAT 96; BMI 23.2
--- NOTE | 2025-10-15 12:51 | MHC.PC.OV ---
Vital Signs 10/15/25 12:51 Height 5 ft 6 in Weight 144 lb BMI 23.2 BP 118/74 Blood Pressure Location Lt brachial Position Sitting Respiration 17 Pulse 67 Pulse Source Pulse Oximeter Temp 98.1 F Temp Source Oral Pulse Oximetry (%) 96 Oxygen Delivery Method Room Air Intake Visit Reasons: Followup depression/meds Intake Note: Pt is here today for Allergies hydromorphone (From DILAUDID) Adverse Reaction (Unknown, Verified 10/15/25 13:08) MAKES ME LOOPY seasonal allergies Allergy (Unknown, Uncoded 10/15/25 13:08) Unknown Medication List - Last Reconciled 10/15/25 by Xenia Gr MD ashwagandha extract PO aspirin 81 mg PO DAILY calcium carbonate (Calci-Mix) 500 mg PO DAILY cetirizine (Zyrtec) 10 mg PO DAILY PRN cholecalciferol (vitamin D3) 50 mcg PO DAILY clobetasol 0.05% 1 appl topical BID 2 weeks fluticasone propionate 50 mcg/actuation (Flonase Allergy Relief) 1 spray intranasal DAILY furosemide 20 mg PO DAILY PRN hydroxyzine HCl 10 mg PO BEDTIME PRN ketoconazole 2% 1 appl topical DAILY magnesium hydroxide 400 mg PO BEDTIME PRN meclizine 25 mg PO BID PRN montelukast 10 mg PO DAILY pravastatin 40 mg PO DAILY sertraline 50 mg PO DAILY sumatriptan succinate take 1 tab at onset of headache; if no relief, may repeat 1 tab after at least 2 hrs; max = 2 tabs/24 hrs PO trazodone 50 mg PO BEDTIME tretinoin 0.1% 1 appl topical BEDTIME turmeric 1,000 mg PO Tobacco use date assessed: 06/03/25 Dental Screening Dental Screen Date: 06/03/25 HPI Followup depression/meds HPI Details Patient presents for the follow-up of depression grieving after her son . Patient is feeling better has been taking 50 mg of sertraline and attending grief counseling. Patient has been more physically active exercising 5 times a week going to a gym and walking. She reports persistent insomnia and racing thoughts at night. [facility] Medical History (Updated 10/15/25 @ 15:07 by Xenia Gr MD) Osteopenia (~2016) Osteoarthritis of foot, left Obstructive sleep apnea on CPAP (~2011) Mammogram normal Normal colonoscopy PFO with atrial 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 Mother No problems noted. Sister Breast cancer CVD (cardiovascular disease) Paternal Grandmother Breast cancer Paternal Grandfather No problems noted. 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 1. Little interest or pleasure in doing things: not at all 2. Feeling down, depressed, or hopeless: not at all 3. Trouble falling or staying asleep, or sleeping too much: several days 4. Feeling tired or having little energy: several days 5. Poor appetite or overeating: not at all 6. Feeling bad about yourself - or that you are a failure or have let yourself or your family down: not at all 7. Trouble concentrating on things, such as reading the newspaper or watching television: not at all 8. Moving or speaking so slowly that other people could have noticed. Or the opposite - being so fidgety or restless that you have been moving around a lot more than usual: not at all 9. Thoughts that you would be better off or of hurting yourself in some way: not at all Total score: 2 Depression Screening Interpretation: Negative Depression Screening Done: Yes Source: Developed by Drs. Christian Huddleston, Michelle Souza, Keven Belle and colleagues, with an educational sharona from [employer]. Thrive Questionnaire Date Thrive assessed: 05/27/25 I am a: Patient What is your living situation today?: I have a steady place to live Within the past 12 months, did the food you bought not last and you didn't have the money to get more?: Never true Within the past 12 months, did you worry whether your food would run out before you got money to buy more?: Never true Do you have trouble paying for medicines?: No Do you have trouble getting transportation to medical appointments?: No Do you have trouble paying your heating and electricity bill?: No Do you have trouble taking care of your child, family member or friend?: No Do you have trouble with day-to-day activities such as bathing, preparing meals, shopping, managing finances, etc.?: No Are you currently unemployed and looking for a job?: No Are you interested in more education?: No Please select the resources that you would like help with: None Currently or been in a relationship where the following occur: No concerns reported THRIVE Score: 0 JAMES-7 AMB Questionnaire JAMES-7 Date JAMES - 7 assessed: 06/03/25 Source: Developed by Drs. Christian Huddleston, Michelle Souza, Keven Belle and colleagues, with an educational sharona from [employer]. Review of Systems Const All systems reviewed & are unremarkable except as noted in HPI and below ENT Reports no additional complaints Card Reports no additional complaints Resp Reports no additional complaints GI Reports no additional complaints Physical exam (Primary Care) Vital Signs: Last Vital Signs Temp 98.1 F 10/15/25 12:51 Pulse 67 10/15/25 12:51 Resp 17 10/15/25 12:51 BP 118/74 10/15/25 12:51 Pulse Ox 96 10/15/25 12:51 Oxygen Delivery Method Room Air 10/15/25 12:51 BMI result Body Mass Index 23.2 Tobacco/Smoking Status: Tobacco use Status Tobacco use date assessed 06/03/25 10/15/25 12:51 Patient Tobacco Use Status Former Tobacco user 10/15/25 12:51 e-Cigarette/Vaping Use Never Used 10/15/25 12:51 PHQ-9: PHQ-9 Score PHQ-9: Total score 2 10/15/25 13:10 Depression Screening Interpretation: Negative Thrive Assessment: Date of Thrive Assessment Date Thrive assessed 05/27/25 10/15/25 12:51 Currently or been in a relationship where the following occur: No concerns reported Const General: no acute distress HENMT Face and sinus: Yes normal facial exam Neck Neck: Yes supple Resp Effort & Inspection: normal respiratory effort Auscultation: clear to auscultation bilaterally Cardio Rhythm: regular rhythm Heart sounds: S1 normal heart sound present and S2 normal heart sound present Coding Level of Care Code Est Pt Level 4 (06186) Diagnoses Grieving F43.21 Obstructive sleep apnea on CPAP G47.33; Z99.89 Hyperlipemia E78.5 Assessment & Plan Assessment & Plan (1) Grieving: Comment: Son in accident in July/2024 Code(s): F43.21 - Adjustment disorder with depressed mood Category: Medical Plan: Continue sertraline, add trazodone as needed, continue grieving counseling (2) Obstructive sleep apnea on CPAP: Onset Date: ~2011 Comment: (EVA since 2011, Compliant with CPAP Code(s): G47.33 - Obstructive sleep apnea (adult) (pediatric); Z99.89 - Dependence on other enabling machines and devices Category: Medical Plan: Continue Cpap (3) Hyperlipemia: Code(s): E78.5 - Hyperlipidemia, unspecified Category: Medical Plan: Continue pravastatin Orders: Orders Vitamin D 25-OH Total 9 Months E53.8 - Deficiency of other specified B group vitamins, E55.9 - Vitamin D deficiency, unspecified, M85.80 - Other specified disorders of bone density and structure, unspecified site, Z00.00 - Encounter for general adult medical examination without abnormal findings UA w Microscopic 9 Months E53.8 - Deficiency of other specified B group vitamins, E55.9 - Vitamin D deficiency, unspecified, M85.80 - Other specified disorders of bone density and structure, unspecified site, Z00.00 - Encounter for general adult medical examination without abnormal findings Comprehensive [place]. Panel Fast 9 Months E53.8 - Deficiency of other specified B group vitamins, E55.9 - Vitamin D deficiency, unspecified, M85.80 - Other specified disorders of bone density and structure, unspecified site, Z00.00 - Encounter for general adult medical examination without abnormal findings Complete Blood Count Auto Diff 9 Months E53.8 - Deficiency of other specified B group vitamins, E55.9 - Vitamin D deficiency, unspecified, M85.80 - Other specified disorders of bone density and structure, unspecified site, Z00.00 - Encounter for general adult medical examination without abnormal findings Lipid Panel 9 Months E53.8 - Deficiency of other specified B group vitamins, E55.9 - Vitamin D deficiency, unspecified, M85.80 - Other specified disorders of bone density and structure, unspecified site, Z00.00 - Encounter for general adult medical examination without abnormal findings TSH reflex Free T4 9 Months E53.8 - Deficiency of other specified B group vitamins, E55.9 - Vitamin D deficiency, unspecified, M85.80 - Other specified disorders of bone density and structure, unspecified site, Z00.00 - Encounter for general adult medical examination without abnormal findings Medications: New trazodone 50 mg PO BEDTIME 30 tabs 0RF
== END 2025-10-15 15:02 | disposition home or self-care (01) ==
LOC: HO.HMCC 12:50
PROVIDERS: PCP Internal Medicine; Visit Provider Internal Medicine
DX: F43.21 Adjustment disorder with depressed mood (principal); G47.33 Obstructive sleep apnea (adult) (pediatric); Z99.89 Dependence on other enabling machines and devices; E78.5 Hyperlipidemia, unspecified

== ENCOUNTER → 2025-10-15 12:49 | Outpatient (BNVA) | payer MEDICARE, SELFPAY | PROVIDERS: PCP Internal Medicine; Visit Provider Internal Medicine | DX: F43.21 Adjustment disorder with depressed mood (principal); G47.33 Obstructive sleep apnea (adult) (pediatric); Z99.89 Dependence on other enabling machines and devices; E78.5 Hyperlipidemia, unspecified | CPT/HCPCS: 99212 ==

== ENCOUNTER 2025-10-27 13:14 | Outpatient (REF) | payer MEDICARE, SELFPAY ==
--- NOTE | ~2025-10-27 | MM_ITS ---
EXAMINATION: DXA BONE DENSITY AXIAL HISTORY: Z78.0 - Asymptomatic menopausal state TECHNIQUE: [facility] Dual energy absorptiometry (DEXA) of the lumbar spine, total left hip, and femoral neck was performed. COMPARISON: Comparison is made with the prior examination dated 09/27/2021. FINDINGS: The bone mineral density of the lumbar spine is 1.041 g/cm2, corresponding to a T-score of -1.2, and a Z-score of 0.4. This is indicative of osteopenia.- This represents a BMD change of 3.3% compared to the prior exam. This is statistically significant. The bone mineral density of the left total hip is 0.952 g/cm2, corresponding to a T-score of -0.4, and a Z-score of 0.8. This is indicative of normal bone mineral density. This represents a BMD change of -1.7% compared to the prior exam. This is not statistically significant. The bone mineral density of the left femoral neck is 0.820 g/cm2, corresponding to a T-score of -1.6, and a Z-score of -0.1. This is indicative of osteopenia. This represents a BMD change of -4.3% compared to the prior exam. FRACTURE RISK: The FRAX index suggests a ten year probability of major osteoporotic fracture of 8.9%, and of hip fracture 1.1%. MM/XR DEXA axial skeleton IMPRESSION: Based on bone mineral density, and according to World Health Organization (WHO) criteria, the diagnosis is consistent with osteopenia. Statistically, 68% of repeat scans fall within 1 SD (+/- 0.010 g/cm2 for AP spine L1-L4) and 1 SD (+/- 0.012 g/cm2 for femur total) FRAX is a trademark of the [employer]'s [place] [employer] Metabolic Bone Disease, a World Health Organization (WHO) Collaborating Center. Electronically signed by: Christian Garibay MD 10/27/2025 01:53 PM [facility]
== END 2025-10-27 13:15 | disposition home or self-care (01) ==
LOC: HO.MAMMO 13:14
PROVIDERS: PCP Internal Medicine; Visit Provider Obstetrics & Gynecology
DX: Z78.0 Asymptomatic menopausal state (principal)
CPT/HCPCS: 77080

== ENCOUNTER → 2025-10-27 13:30 | Outpatient (BNV) | payer MEDICARE, SELFPAY | PROVIDERS: PCP Internal Medicine; Visit Provider Radiology Diagnostic Radiology | DX: E28.39 Other primary ovarian failure (principal) | CPT/HCPCS: 77080 ==

== ENCOUNTER 2025-11-19 09:56 | Outpatient (AMB) | payer MEDICARE, SELFPAY ==
--- OUTSIDE RECORDS SUMMARY | 2024-12-07 03:30 | XMS_ITS ---
Author Organization [facility] [address] Address [address] [place] [address] Care Team Providers Care Parole Hearing Officer Name Role Phone Xenia Gr MD Primary Care Provider UnavailFaiza Mcpherson [phone] Encounters Encounter Location Date Provider Diagnosis [facility] [address] [place] [address] 12/07/2024 Faiza Gifford Plan Of Treatment No Information Progress Notes * Andra LEZAMA LDOB: 9 (65 yo F)Acc No.[id number]:12/07/2024 Progress Notes Patient: Andra CROW Provider: Mauricio Gifford DPM :1960 A ge:64 Y S ex:Female Date:12/07/2024 [address] [place], [id number] Pcp:Xenia Gr MD Subjective: * Chief Complaints: * * Medical History: Objective: * Vitals: Assessment: Plan: * Treatment: * Images: * The named appointment provid er may or may not be the originator of this progress note, and it is not deemed complete until electronically signed by the appointment provider. Sign off status: Pending * Provider: Mauricio Gifford DPM Date: 0 12/07/2024 Generated for Printi ng/Faxing/eTransmitting on: 1 01/20/2025 11:02 AM EST
--- NOTE | 2025-11-19 09:57 | A.OFFVIS_ITS ---
Intake Visit Reasons: Dexa results Allergies hydromorphone (From DILAUDID) Adverse Reaction (Unknown, Verified 10/15/25 13:08 ) MAKES ME LOOPY seasonal allergies Allergy (Unknown, Uncoded 10/15/25 13:08) Unknown HPI Comments Details: The patient is schedule telehealth visit for DEXA scan follow-up which was done on 10/27/2025 and showed the following: The bone mineral density of the lumbar spine is 1.041 g/cm2, corresponding to a T-score of -1.2, and a Z-score of 0.4. This is indicative of osteopenia.- This represents a BMD change of 3.3% compared to the prior exam. This is statistically significant. The bone mineral density of the left total hip is 0.952 g/cm2, corresponding to a T-score of -0.4, and a Z-score of 0.8. This is indicative of normal bone mineral density. This represents a BMD change of -1.7% compared to the prior exam. This is not statistically significant. The bone mineral density of the left femoral neck is 0.820 g/cm2, corresponding to a T-score of -1.6, and a Z-score of -0.1. This is indicative of osteopenia. This represents a BMD change of -4.3% compared to the prior exam. FRACTURE RISK: The FRAX index suggests a ten year probability of major osteoporotic fracture of 8.9%, and of hip fracture 1.1%. [facility] Medical History (Updated 11/19/25 @ 10:17 by Josiah Jason MD) Osteopenia (~2016) Osteoarthritis of foot, left Obstructive sleep apnea on CPAP (~2011) Mammogram normal Normal colonoscopy PFO with atrial 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 Mother No problems noted. Sister Breast cancer CVD (cardiovascular disease) Paternal Grandmother Breast cancer Paternal Grandfather No problems noted. 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 Cognitive needs: No Hearing needs: No Vision needs: Yes Female Reproductive History Menstrual Age of Menarche: 11 Review of Systems Const All systems reviewed & are unremarkable except as noted in HPI and below Reports as per HPI and Reports no additional complaints GI Reports no additional complaints Reports no additional complaints Telehealth Telehealth Telehealth Platform: [employer] Location of provider rendering services: practice address Location of patient: address on file Patient Identification confirmed using: Name, : Yes Telehealth method: video Patient verbally consented to treatment: Yes Patient verbally consented to billing insurance company: Yes Patient informed of any privacy concerns related to visit: Yes Minutes spent on Phone/Video with Pt.: 3 Assessment & Plan Assessment & Plan (1) Osteopenia: Onset Date: ~2016 Code(s): M85.80 - Other specified disorders of bone density and structure, unspecified site Category: Medical Plan: Discussed with the patient the DEXA results and FRAX risk. FRAX risk and T score showed no evidence of osteoporosis. Discussed with the patient all the options for osteoporosis prevention including lifestyle modifications including Ca+D supplements 1200 mg po qd/800 MIU, Weight bearing exercises and proteine supplements. The patient verbalized understanding and agreed plan will repeat DEXA in 2 years. I spent a total of 20 minutes reviewing the chart, talking to the patient via video and documenting in the medical record. Coding Level of Care Code Tele Est Pt Level 3 (94661) Diagnoses Osteopenia M85.80
--- OUTSIDE RECORDS SUMMARY | 2025-11-19 11:02 | XMS_ITS | Patient Health Record ---
Author Organization [facility] Address [address] [place] [address] Care Team Providers Care C2 Tactical Analysis Technician Name Role Phone Xenia Gr MD Primary Care Provider Christian Roy Unavailable [phone] Allergies No Known Allergies Reason For Referral No Information Medications Medication SIG (Take, Route, Frequency, Duration) Notes Start Date End Date Status Turmeric Curcumin 500 MG Capsule 2 Orally QD Active Lactulose 20 GM/30ML Solution 15 ml Orally Once a day PRN constipation Active Aspir-81 81 MG Tablet Delayed Release 1 tablet Orally Once a day Active Lasix 20 MG Tablet 1 tablet Orally Twice a week Active Calcium Active Premarin 0.625 MG/GM Cream Vaginal Active ZyrTEC 10 MG Tablet 1 tablet Orally Once a day; Duration: 30 day(s) Active Vitamin D 1000 UNIT Tablet 1 tablet Orally Once a day; Duration: 30 day(s) Active Immunizations Vaccine Route Administration Date Status Comme nts Influenza Unknown 10/18/2021 Administered Social History Tobacco Use: Social History Observation Description Date Details (start date - stop date) Never Smoker NA - NA Social History Drugs/Alcohol: Social Info Question Answer Notes Alcohol Screen Did you have a drink containing alcohol in the past year? Yes How often did you have a drink containing alcohol in the past year? 2 to 4 times a month (2 points) How many drinks did you have on a typical day when you were drinking in the past year? 1 or 2 drinks (0 point) How often did you have 6 or more drinks on one occasion in the past year? 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: She does not smoke nor use a ny significant amounts of alcohol She does not smoke nor use a ny significant amounts of alcohol Problems Problem Type SNOMED Code ICD Code Onset Dates Problem Status W/U Status Risk Notes Problem Rectal bleeding (44005874) Rectal bleeding (K62.5) Active confirmed Problem Screening for malignant neoplasm of colon (380578435) Encounter for screening for malignant neoplasm of colon (Z12.11) Active confirmed Problem Constipation (55356602) Other constipation (K59.09) Active confirmed Problem History of gastrointestinal tract bypass (763009601) Intestinal bypass and anastomosis status (Z98.0) Active confirmed Problem Imaging of gastrointestinal tract abnormal (472702478) Abnormal CT scan, gastrointestinal tract (R93.3) Active confirmed Problem Family history of colorectal cancer (0061577881795) Family history of colorectal cancer (Z80.0) Active confirmed Problem Non-infective enteritis and colitis (305635412) Acute colitis (K52.9) Active confirmed Problem Incontinence of feces (60151396) Incontinence of feces, unspecified fecal incontinence type (R15.9) Active confirmed Plan Of Treatment Pending Test Test Name Order Date CBC w DIFF 11/15/2021 Future Test Test Name Order Date COLONOSCOPY 06/18/2017 COLONOSCOPY 11/15/2021 Insurance Providers Payer Name Payer Address Payer Phone Subscriber Number Group Number Insured Name Patient Relationship to Insured Coverage Start Date Coverage End Date [employer] [place] [address] [address] [place] [address] [id number] MIKEY MORRIS Self - patient is the insured Medical (General) History Medical History History ICD Code Denies AR,DM,CVA,Lung disease,renal dise ase Negative colonoscopy in 2009 [...]
--- OUTSIDE RECORDS SUMMARY | 2025-11-19 11:02 | XMS_ITS | Patient Health Record ---
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 [...] primary osteoarthritis of the ankle and/or foot (963463306) Primary osteoarthritis, right ankle and foot (M19.071) Active confirmed Problem Localized, primary osteoarthritis of the ankle and/or foot (894344434) Primary osteoarthritis, left ankle and foot (M19.072) Active confirmed Problem Acquired hallux valgus (57531339) Hallux valgus (acquired), right foot (M20.11) Active confirmed Problem Contracture of joint of right foot (disorder) (912133379686754) Contracture, right foot (M24.574) Active confirmed Problem Acquired hammer toe of right foot (0900840880168847 ) Other hammer toe(s) (acquired), right foot (M20.41) Active confirmed Problem PlantarFlexion o f metatarsal of right foot (M21.6X1) Active confirmed Problem Complex regional pain syndrome type I of right lower limb (disorder) (787490435800523) Complex regional pain syndrome type 1 of right lower extremity (G90.521) Active confirmed Problem Br[place]field's metatarsalgia (disorder) (57539957) 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) Active confirmed Plan Of Treatment Pending Test [...] X ray : Foot, right 3V 09/19/2015 78809-Ncvi Destruction, 1-14 04/19/2017 24761-Ikro Destruction, 1-14 01/02/2018 69179-Sxzs Destruction, -14 01/04/2015 24363-Astu Destruction, 1-14 04/06/2013 61509-Zlts Destruction, -14 03/23/2014 76972- Debride <25 sq cm 03/23/2014 72031- Debride <25 sq cm 05/28/2012 28418- Debride <25 sq cm 01/04/2015, R0199-[id number]/INJECT, JOINT/BURSA 0 01/04/2015, H4107-UZZIX/INJECT, JOINT/BURSA 1 , Y0692-HPSED/INJECT, JOINT/BURSA 0 03/23/2014, N0317-KJOJK/INJECT, JOINT/BURSA 0 02/24/2021- Ganglion Cyst Injection/Aspiratio n 06/03/2012 Insurance Providers Payer Name Payer Address Payer Phone Subscriber Number Group Number Insured Name Patient Relationship to Insured Coverage Start Date Coverage End Date Medicare [employer] [address] [place] [address] [id number] Andra Lezama Self - patient is the insured [facility] [address] [place] [address] [id number] Lezama Andra Self - patient is the insured Medical (General) History Medical History History ICD Code back, hip, knee pain Surgical History Surgery Date(Month/Year) hysterectomy 2005 Bilateral knee replacement left foot surgery 02/01/2015
== END 2025-11-19 11:01 | disposition home or self-care (01) ==
LOC: HO.HWS 09:56
PROVIDERS: PCP Internal Medicine; Visit Provider Obstetrics & Gynecology
DX: M85.80 Other specified disorders of bone density and structure, unspecified site (principal)
CPT/HCPCS: 99213